=== PATIENT | female | born 1960 | race Caucasian/White ===

== ENCOUNTER 2019-12-26 16:38 | Outpatient (REF) | payer BC, SELFPAY | END 2019-12-26 16:39 | disposition home or self-care (01) | LOC: HO.LAB 16:38 | PROVIDERS: Visit Provider Internal Medicine | DX: Z20.828 Contact with and (suspected) exposure to other viral communicable diseases (principal) | CPT/HCPCS: C9803; U0003 ==

== ENCOUNTER 2020-01-25 12:07 | Outpatient (REF) | payer BC, SELFPAY | END 2020-01-25 12:08 | disposition home or self-care (01) | LOC: HO.LAB 12:07 | PROVIDERS: Visit Provider Internal Medicine | DX: Z20.828 Contact with and (suspected) exposure to other viral communicable diseases (principal) | CPT/HCPCS: C9803; U0003 ==

== ENCOUNTER 2020-08-18 07:37 | Outpatient (REF) | payer BC, SELFPAY ==
[2020-08-18 08:01] LABS: MANUAL DIFF FLAG NO
[2020-08-18 08:04] LABS: Basophils Percent Auto 0.6 % (0-2); Eosinophils Absolute Auto 0.3 X10*3/uL (0.0-0.4); Eosinophils Percent Auto 6.1 % (0-4); Hematocrit 45.2 % (37-47); Hemoglobin 15.2 g/dl (12.0-16.0); Imm Gran Abs Auto 0.01 X10*3/uL (0.00-0.03); Imm Gran Pct Auto 0.2 % (0.0-0.4); Lymphocytes Absolute Auto 2.3 X10*3/uL (1.2-4.9); Mean Corpuscular HGB Conc 33.6 g/dl (31.0-35.0); Mean Platelet Volume 10.6 fL (9.4-12.3); Monocytes Absolute Auto 0.5 X10*3/uL (0.1-1.2); Monocytes Percent Auto 9.4 % (2-11); Neutrophils Absolute Auto 2.3 X10*3/uL (2.0-8.3); Neutrophils Percent Auto 41.7 % (45-73); Platelet Count 257 X10*3/uL (160-400); Red Blood Count 4.61 X10*6/uL (4.20-5.50); Red Cell Distribution Width 11.8 % (11.0-16.0); White Blood Count 5.5 X10*3/uL (4.8-10.8)
[2020-08-18 08:35] LABS: Alanine Aminotransferase 18 U/L (0-31); Albumin Level 4.6 g/dL (3.5-5.0); Alkaline Phosphatase 80 U/L (39-117); Aspartate Amino Transferase 20 U/L (5-31); Bilirubin Total 1.1 mg/dL (0.0-1.0); Blood Urea Nitrogen 14 mg/dL (9-16); Cholesterol 245 mg/dL; Estimated Glomerular Filt Rate > 60; Glucose Fasting 101 mg/dL (60-99); HDL Cholesterol 106 mg/dL; LDL Cholesterol Calculated 128 mg/dl; Total Protein 7.4 g/dL (6.5-8.0); Triglycerides 59 mg/dL
[2020-08-18 08:43] LABS: Anion Gap 14 (12-20); Calcium 10.6 mg/dL (8.4-10.2); Carbon Dioxide 28 mmol/L (22-29); Chloride 105 mmol/L (96-108); Potassium 5.4 mmol/L (3.3-5.1); Sodium 142 mmol/L (135-145)
[2020-08-18 08:53] LABS: Vitamin D 25-OH Total 37.7 ng/mL (>30)
== END 2020-08-18 07:38 | disposition home or self-care (01) ==
LOC: HO.LAB 07:37
PROVIDERS: PCP Internal Medicine; Visit Provider Internal Medicine
DX: Z00.00 Encounter for general adult medical examination without abnormal findings (principal)
CPT/HCPCS: 36415; 80053; 80061; 82306; 85025

== ENCOUNTER 2020-08-21 14:41 | Outpatient (REF) | payer BC, SELFPAY ==
[2020-08-21 15:52] LABS: Anion Gap 17 (12-20); Blood Urea Nitrogen 14 mg/dL (9-16); Calcium 10.4 mg/dL (8.4-10.2); Carbon Dioxide 26 mmol/L (22-29); Chloride 104 mmol/L (96-108); Estimated Glomerular Filt Rate > 60; Glucose Random 101 mg/dL (60-115); Potassium 4.9 mmol/L (3.3-5.1); Sodium 142 mmol/L (135-145)
== END 2020-08-21 14:42 | disposition home or self-care (01) ==
LOC: HO.LAB 14:41
PROVIDERS: PCP Internal Medicine; Visit Provider Internal Medicine
DX: E87.5 Hyperkalemia (principal)
CPT/HCPCS: 36415; 80048

== ENCOUNTER 2021-03-26 09:18 | Outpatient (REF) | payer BC, SELFPAY ==
[2021-03-29 20:02] LABS: HPV mRNA E6/E7 rflx Not Detected (Not Detected)
== END 2021-03-26 09:19 | disposition home or self-care (01) ==
LOC: HO.LAB 09:18
PROVIDERS: PCP Internal Medicine; Visit Provider Obstetrics & Gynecology
DX: Z01.419 Encounter for gynecological examination (general) (routine) without abnormal findings (principal); Z11.51 Encounter for screening for human papillomavirus (HPV)
CPT/HCPCS: 87624; 88142

== ENCOUNTER 2021-06-25 08:17 | Outpatient (REF) | payer BC, SELFPAY ==
--- NOTE | 2021-06-25 13:14 | MHC.AU.ANR ---
Adult Audiological Evaluation Date of Visit: 06/25/21 Reason for Appointment: Audiological evaluation due to concern for decreased hearing. Kanwal reports that her left ear doesn't seem normal . She feels she's been having more trouble hearing from the left ear over the past year, noting that things sound a bit muffled. She notes tinnitus in her left ear as well and notes that sometimes the left ear feels like it's in a wind tunnel. She denies any concerns for her right ear. She notes that she had COVID ~4 weeks ago, had some popping in her ears, and felt that her hearing actually improved during that time, but has since decreased again. Kanwal denies any dizziness or vertigo. Does patient feel they have a hearing loss?: Unsure If Yes, Which Ear?: Left Ear When Was Hearing Difficulty First Noticed?: ~1 year ago Has hearing been tested previously?: No Hearing Handicap Inventory: HHIE SCORE: 0 Based on HHIE score, patient has: No perceived hearing handicap Ear History: Family History of Hearing Loss?: Yes: Mother from a young age, believed to be genetic Bothersome Tinnitus/Ringing/Noises in Ears: Left Ear Blocked/Full Sensation in Ear(s): Left Ear History of occupational noise exposure?: No Medical History: Medical History (Other): 04/1989, Both hips replaced 06/2017 and 12/2017. Allergies: Hydromorphone, trees Medication List: Albuterol sulfate nebulizer PRN, IC Esrtadiol cream, IC Norethindrone, Centrum multivitamin, L-Lysine (vitamin) Otoscopy: Right Ear: Unremarkable Left Ear: Unremarkable Tympanometry: Tympanometry performed due to: To assess integrity of the middle ear system Right Ear: Normal Middle Ear System (Type A) Left Ear: Normal Middle Ear System (Type A) Hearing Evaluation: Transducer(s) Used: Insert Earphones, Bone Conduction Method: Conventional Audiometry Stimuli Used: Pure Tones Right Ear: Description of Hearing: Normal hearing from 250-2000 Hz, sloping to a mild to moderate sensorineural hearing loss from 4084-3379 Hz. Left Ear: Description of Hearing: Moderate sensorineural hearing loss from 250-8000 Hz. Hearing in the left ear is 25-40 dBHL worse than the right ear from 250-2000 Hz. Speech Recognition Threshold (SRT): Method Used: Monitored Live Voice Stimuli Used: Spondee Words Right Ear: 15 dBHL Left Ear: 30 dBHL Word Discrimination: Method: Recorded Lists Word Lists Used: NU-6 Right Ear: 100% at 55 dBHL Left Ear: 100% at 70 dBHL with masking Interpretation of Results: Today's evaluation indicates an asymmetric sensorineural hearing loss, left ear hearing worse than the right. Recommendations: Audiological re-evaluation in one year. Referral to Ear, Nose, and Throat is recommended due to significant asymmetry. If medically cleared by an ENT physician, Kanwal may benefit from hearing aid use in the left ear. Diagnosis: Primary Diagnosis: H90.3 Bilateral Sensorineural Hearing Loss Secondary Diagnosis: H93.12 Tinnitus, Left Ear Services Performed: Services Performed: Comprehensive Audiological Evaluation (CPT 31544) Tympanometry (CPT 04496) Signature: Provider: Myah Hernandez, CCC-A
== END 2021-06-25 08:18 | disposition home or self-care (01) ==
LOC: HO.SH 08:17
PROVIDERS: Visit Provider Internal Medicine
DX: Z01.118 Encounter for examination of ears and hearing with other abnormal findings (principal); H90.3 Sensorineural hearing loss, bilateral
CPT/HCPCS: 92557; 92567

== ENCOUNTER 2021-09-03 06:37 | Outpatient (REF) | payer BC, SELFPAY ==
[2021-09-03 06:44] LABS: MANUAL DIFF FLAG NO
[2021-09-03 07:31] LABS: Basophils Percent Auto 0.5 % (0-2); Eosinophils Absolute Auto 0.3 X10*3/uL (0.0-0.4); Eosinophils Percent Auto 4.9 % (0-4); Hematocrit 43.7 % (37.0-47.0); Hemoglobin 14.5 g/dl (12.0-16.0); Imm Gran Abs Auto 0.01 X10*3/uL (0.00-0.03); Imm Gran Pct Auto 0.2 % (0.0-0.4); Lymphocytes Percent Auto 32.8 % (20-40); Mean Corpuscular HGB Conc 33.2 g/dl (31.0-35.0); Mean Corpuscular Hemoglobin 32.5 pg (27.0-33.0); Mean Platelet Volume 11.1 fL (9.4-12.3); Monocytes Absolute Auto 0.6 X10*3/uL (0.1-1.2); Monocytes Percent Auto 10.1 % (2-11); Neutrophils Absolute Auto 3.1 x10*3/uL (2.0-8.3); Neutrophils Percent Auto 51.5 % (45-73); Platelet Count 255 X10*3/uL (160-400); Red Blood Count 4.46 X10*6/uL (4.20-5.50); Red Cell Distribution Width 11.9 % (11.0-16.0)
[2021-09-03 08:10] LABS: Alanine Aminotransferase 14 U/L (0-31); Albumin Level 4.5 g/dL (3.5-5.0); Alkaline Phosphatase 80 U/L (39-117); Anion Gap 12 (12-20); Aspartate Amino Transferase 18 U/L (5-31); Bilirubin Total 0.6 mg/dL (0.0-1.0); Blood Urea Nitrogen 16 mg/dL (9-16); Calcium 9.8 mg/dL (8.4-10.2); Carbon Dioxide 29 mmol/L (22-29); Chloride 106 mmol/L (96-108); Cholesterol 240 mg/dL; Estimated Glomerular Filt Rate > 60; Glucose Fasting 95 mg/dL (60-99); HDL Cholesterol 102 mg/dL; LDL Cholesterol Calculated 130 mg/dl; Potassium 5.5 mmol/L (3.3-5.1); Sodium 141 mmol/L (135-145); Total Protein 7.1 g/dL (6.5-8.0); Triglycerides 43 mg/dL
== END 2021-09-03 06:38 | disposition home or self-care (01) ==
LOC: HO.LAB 06:37
PROVIDERS: PCP Internal Medicine; Visit Provider Internal Medicine
DX: Z00.00 Encounter for general adult medical examination without abnormal findings (principal)
CPT/HCPCS: 36415; 80053; 80061; 85025

== ENCOUNTER 2021-11-25 07:59 | Outpatient (REF) | payer BC, SELFPAY ==
--- NOTE | ~2021-11-25 | US_ITS ---
EXAMINATION: US VENOUS ULTRASOUND WITH DOPPLER LOWER EXTREMITY, LEFT CLINICAL INFORMATION: Swelling/palpable lump. Rule out phlebitis. COMPARISON: None TECHNIQUE: Ultrasound of the deep veins is performed from the hip to the calf with compression sonography and color and pulse Doppler assessment. Spectral analysis with color-flow imaging is performed. FINDINGS: There is normal venous compression and respiratory variation and augmented flow. The visualized common femoral vein, superficial femoral vein, profunda femoral vein, popliteal vein, and the trifurcation region shows no evidence of deep venous thrombosis. No evidence of superficial thrombophlebitis. There is no popliteal fossa cyst. US/US venous duplex LE LT IMPRESSION: No DVT or superficial thrombophlebitis demonstrated in the left lower extremity.
== END 2021-11-25 08:00 | disposition home or self-care (01) ==
LOC: HO.US 07:59
PROVIDERS: Visit Provider Internal Medicine
DX: R22.9 Localized swelling, mass and lump, unspecified (principal)
CPT/HCPCS: 93971

== ENCOUNTER → 2022-04-01 09:12 | Outpatient (BNVA) | payer BC, SELFPAY | PROVIDERS: PCP Internal Medicine; Visit Provider Obstetrics & Gynecology | DX: Z13.89 Encounter for screening for other disorder (principal) ==

== ENCOUNTER 2023-01-26 08:03 | Outpatient (REF) | payer BC, SELFPAY ==
[2023-01-26 08:20] LABS: MANUAL DIFF FLAG NO
[2023-01-26 09:34] LABS: Basophils Percent Auto 0.8 % (0-2); Eosinophils Absolute Auto 0.3 X10*3/uL (0.0-0.4); Eosinophils Percent Auto 5.3 % (0-4); Hematocrit 43.2 % (37.0-47.0); Imm Gran Abs Auto 0.01 X10*3/uL (0.00-0.03); Imm Gran Pct Auto 0.2 % (0.0-0.4); Lymphocytes Percent Auto 37.9 % (20-40); Mean Corpuscular HGB Conc 32.4 g/dl (31.0-35.0); Mean Corpuscular Hemoglobin 31.3 pg (27.0-33.0); Mean Corpuscular Volume 96.4 fL (80.0-98.0); Mean Platelet Volume 11.2 fL (9.4-12.3); Monocytes Absolute Auto 0.5 X10*3/uL (0.1-1.2); Monocytes Percent Auto 8.6 % (2-11); Neutrophils Absolute Auto 2.5 x10*3/uL (2.0-8.3); Neutrophils Percent Auto 47.2 % (45-73); Platelet Count 324 X10*3/uL (160-400); Red Blood Count 4.48 X10*6/uL (4.20-5.50); Red Cell Distribution Width 11.9 % (11.0-16.0); White Blood Count 5.3 X10*3/uL (4.8-10.8)
[2023-01-26 10:07] LABS: Alanine Aminotransferase 13 U/L (0-31); Alkaline Phosphatase 75 U/L (39-117); Anion Gap 14 (12-20); Aspartate Amino Transferase 17 U/L (5-31); Bilirubin Total 0.4 mg/dL (0.0-1.0); Blood Urea Nitrogen 24 mg/dL (9-16); Carbon Dioxide 27 mmol/L (22-29); Chloride 106 mmol/L (96-108); Cholesterol 219 mg/dL (<200); Estimated Glomerular Filt Rate > 60; Glucose Fasting 96 mg/dL (60-99); HDL Cholesterol 71 mg/dL (>40); LDL Cholesterol Calculated 134 mg/dL (<100); Potassium 5.3 mmol/L (3.3-5.1); Sodium 142 mmol/L (135-145); Total Protein 7.4 g/dL (6.5-8.0); Triglycerides 71 mg/dL (<150)
== END 2023-01-26 08:04 | disposition home or self-care (01) ==
LOC: HO.LAB 08:03
PROVIDERS: PCP Internal Medicine; Visit Provider Internal Medicine
DX: E78.00 Pure hypercholesterolemia, unspecified (principal); D64.9 Anemia, unspecified
CPT/HCPCS: 36415; 80053; 80061; 85025

== ENCOUNTER 2023-04-06 09:30 | Outpatient (AMB) | payer BC, SELFPAY ==
--- NOTE | 2023-04-06 09:32 | A.OFFVIS_ITS ---
Intake Vital Signs 04/06/23 09:37 Height 5 ft 3 in Weight 166 lb BMI 29.4 BP 122/80 Intake Visit Reasons: Annual Intake Note: c/o of vaginal itching Record Systems Analyst Required: No Information Interpreted: non-clinical & clinical Material Crew Supervisor: Material Crew Supervisor Present (Caroline GUTIERREZ) Accompanied by: Self / Same As Patient Allergies hydromorphone [From DILAUDID] Allergy (Unknown, Verified 04/06/23 09:38) HALLUCINATIONS Post menopausal: Yes HPI HPI Comments History of Present Illness Details Presenting for annual exam. No complaints except for vaginal irritation since vaginal estrogen cream x1 week is not giving her enough relief of her vaginal irritation. Last Pap/HPV was in 04/02 was negative Last Mammogram was in 06/01 was BI-RADS 1. Last Colonoscopy was more than 10 years ago, the patient will be contacting Dr. Delgado office to schedule her next screening colonoscopy [facility] Medical History Asthma Surgical History History of History of bilateral hip replacements Family History Mother HTN (hypertension) Social History Household Members: Significant Other Housing: House Alcohol intake: never Patient Tobacco Use Status: Never used Tobacco service: No Current occupational status: retired Sexually active: Yes Sexual orientation: Straight/Heterosexual Gender identity: Female Female Reproductive History Menstrual Age of Menarche: 10 Total pregnancies: 1 Full term: 1 Number of Living Children: 1 Date of last pap smear: 03/28/21 Date of Mammogram: 06/02/22 Review of Systems Const All systems reviewed & are unremarkable except as noted in HPI and below Card Reports as per HPI Resp Reports as per HPI GI Reports as per HPI and Reports no additional complaints Reports as per HPI Physical Exam Vital Signs: BMI result Body Mass Index 29.4 Const General: cooperative, healthy appearing and comfortable Chest Chest palpation & inspection: normal inspection of the chest and normal palpation of entire chest wall Breast/axilla inspection: normal inspection of the breasts and normal inspection of the axillae Breast/axilla palpation: normal palpation of the breasts, normal palpation of the axillae and no axillary lymphadenopathy Resp Effort & Inspection: normal respiratory effort Auscultation: clear to auscultation bilaterally Percussion: percussion normal Cardio Palpation: normal PMI Rate: regular rate Rhythm: regular rhythm Heart sounds: no murmurs and no rubs Peripheral pulses: Peripheral pulses 2+ throughout GI Inspection: Yes normal to inspection Palpation (GI): Soft to palpation, nontender, no guarding, not rigid and No hepatosplenomegaly present Percussion: Yes normal to percussion Auscultation: normal bowel sounds Rectal Exam - Female: deferred General: Yes bladder normal to palpation External Female Exam: No lesion Speculum Exam - Vagina: normal appearance of the vagina, normal palpation, neena l vaginal discharge and not erythematous Speculum Exam - Cervix: normal appearance of the cervix and normal palpation Bimanual exam- vagina & uterus: normal bimanual exam, normal palpation, uterine size normal, bladder normal to palpation, consistency normal and normal palpation Bimanual Exam- Adnexa, other: normal adnexae, no masses and no tenderness Assessment & Plan Assessment & Plan (1) Well woman exam: Code(s): Z01.419 - Encounter for gynecological examination (general) (routine) without abnormal findings Plan: Co testing not indicated this year. Counseled the patient about the recommended dietary allowance of 1200 mg of Calcium & 600 IU of vitamin D. Instructions given the patient to schedule her next screening Mammogram in 06/02. The patient is in the process of scheduling with her GI her next screening colonoscopy . The patient was instructed to perform monthly self-breast exams and schedule annual exam in a year. All questions answered and the patient verbalized understanding. (2) Atrophic vaginitis: Code(s): N95.2 - Postmenopausal atrophic vaginitis Plan: Will increase the dose of estrogen vaginal cream to 3 times a week. Medications: Changed From estradiol 0.01%(0.1mg/gram) 0.25 appful vaginal QWEEK 42.5 grams 3RF To estradiol 0.01%(0.1mg/gram) Vaginal cream 3 times a week maintenance therapy 0.25 appful vaginal 3XW 42.5 grams 3RF Coding Level of Care Code Est Pt Prev Care 40-64y(79835) Diagnoses Well woman exam Z01.419 Atrophic vaginitis N95.2
[2023-04-06 09:37] VITALS: BP 122/80; BMI 29.4
== END 2023-04-06 10:03 | disposition home or self-care (01) ==
LOC: HO.HWS 09:31
PROVIDERS: PCP Internal Medicine; Visit Provider Obstetrics & Gynecology
DX: Z01.419 Encounter for gynecological examination (general) (routine) without abnormal findings (principal); N95.2 Postmenopausal atrophic vaginitis
CPT/HCPCS: 99396

== ENCOUNTER → 2023-04-06 09:30 | Outpatient (BNVA) | payer BC, SELFPAY | PROVIDERS: PCP Internal Medicine; Visit Provider Obstetrics & Gynecology ==

== ENCOUNTER 2023-10-13 15:03 | Outpatient (REF) | payer MEDICARE, SELFPAY | END 2023-10-13 15:04 | disposition home or self-care (01) | LOC: HO.SH 15:03 | PROVIDERS: Visit Provider Internal Medicine | DX: Z01.118 Encounter for examination of ears and hearing with other abnormal findings (principal); H90.6 Mixed conductive and sensorineural hearing loss, bilateral | CPT/HCPCS: 92557; 92567 ==

== ENCOUNTER 2023-11-09 15:10 | Outpatient (REF) | payer SELFPAY ==
--- NOTE | 2023-11-10 09:42 | MHC.AU.HA1 ---
Hearing Aid Evaluation Date of Visit: 11/09/23 Historical Information: Description of Hearing: Severe to moderate mixed hearing loss Ad, moderate to severe mixed hearing loss As. Current personal amplification information, if applicable: None. Summary: Here for hearing aid consultation. Kanwal reports seeing ENT following recent evaluation here, cleared for amplification by Dr. Menchaca but she will be seeing someone else to discuss treatment options for the conductive component of her hearing loss. Ready to proceed with amplification at this time. Reviewed options- styles, technology levels, costs. Selected rechargeable RITE with custom mold. Kanwal currently uses an iphone but may get an Android, she may want to connect to her phone for streaming calls. Impressions taken without incidence Au. Hearing Aid Prescription: Based on the individual?s shared listening needs, communication environments, dexterity, desire for connectivity, and personal preferences, the following prescription for amplification has been made: Right ear: Make, Model, Color: Phonak Audeo I 70 R, silver boyle Battery Size: Rechargeable Cardiac Cath Lab Manager/Slim Tube: 1M Type of Earmold/Dome/CShell/SlimTip: silicone skeleton Left ear: Make, Model, Color: Phonak Audeo I 70 R, silvery boyle Battery Size: Rechargeable Cardiac Cath Lab Manager/Slim Tube: 1 M Type of Earmold/Dome/CShell/SlimTip: silicone skeleton Plan of Care: Patient wishes to purchase hearing aids as prescribed Action Taken/Action Needed: Earmold Impressions Taken Hearing Instrument Fitting to be scheduled when materials arrive Primary Diagnosis: H90.6 Mixed Hearing Loss, Bilateral Signature: Provider: Lion Aguilar, [facility]
== END 2023-11-09 15:11 | disposition home or self-care (01) ==
LOC: HO.HAP 15:10
PROVIDERS: Visit Provider Internal Medicine
DX: Z46.1 Encounter for fitting and adjustment of hearing aid (principal); H90.6 Mixed conductive and sensorineural hearing loss, bilateral
CPT/HCPCS: 92590

== ENCOUNTER 2023-12-04 09:24 | Outpatient (REF) | payer SELFPAY ==
--- NOTE | 2023-12-04 11:07 | MHC.AU.HA2 ---
Hearing Instrument Fitting- Adult- Binaural Date of Visit: 12/04/23 Summary of Fitting: Here for fitting. Size 1 wire was too short for left ear. No size 2 in stock. Attempted to remove wire from left aid and it snapped, jewelry finisher connector stuck in aid. To save time, returning these aids and placing order for new aids. Earmolds are stored in earmold drawer. Kanwal is anxious to get her hearing aids before going on vacation next week. Recommendations: Recommendations (Other): Return as scheduled for hearing aid fitting. Diagnosis Code(s): Primary Diagnosis: H90.6 Mixed Hearing Loss, Bilateral Secondary Diagnosis: H93.12 Tinnitus, Left Ear Signature: Provider: Lion Aguilar, CCC-A
== END 2023-12-04 09:25 | disposition home or self-care (01) ==
LOC: HO.HAP 09:24
PROVIDERS: Visit Provider Internal Medicine
DX: Z13.89 Encounter for screening for other disorder (principal)

== ENCOUNTER 2023-12-09 12:59 | Outpatient (REF) | payer SELFPAY ==
--- NOTE | 2023-12-09 16:23 | MHC.AU.HA2 ---
Hearing Instrument Fitting- Adult- Binaural Date of Visit: 12/09/23 Hearing Instruments Dispensed: Right Ear: Make, Model, Color, Serial Number: Phonak Audeo I 70 R, bayron boyle S#[id number] Patient Safety Attendant Repair Warranty: 01/01/2027 Patient Safety Attendant Loss and Damage Warranty: 01/01/[address] [facility] Service Plan: n/a Battery Size: Rechargeable Crew Leader/Slim Tube: 1M Earmold/Dome/CShell/SlimTip: silicone skeleton [id number] Warranty 03/21/2024 Type of Wax Guard: Cerustop Left Ear: Make, Model, Color, Serial Number: Phonak Audeo I 70 R, jimi boyle S#[id number] Patient Safety Attendant Repair Warranty: 01/01/2027 Patient Safety Attendant Loss and Damage Warranty: 01/01/[address] [facility] Service Plan: n/a Battery Size: Rechargeable Crew Leader/Slim Tube: 2 M Earmold/Dome/CShell/SlimTip: silicone skeleton [id number] Warranty 03/21/2024 Type of Wax Guard: Cerustop Accessories/Assistive Technology: Phonak [employer] Guidance Counselor HALLIE S#[id number] Summary of Fitting: Fit with and oriented to binaural Phonak Audeo I70 R HAs with silicone skeleton slim tips. Verified to DSL Adult 5 targets. Kanwal felt that they were overall too loud, set adaptation to 70% with gradual increase. VC enabled, reviewed use. Counseled on adjustment to amplification. Reviewed charging. Reviewed maintenance and precautions. Did not review wax guard change as receivers are recessed in molds and wax guards not accessible- demonstrated using tool to remove wax from mold. Paired with iPhone. Recommendations: Recommendations: Hearing instrument care and maintenance were discussed and practiced. A hearing instrument follow-up was scheduled. Diagnosis Code(s): Primary Diagnosis: H90.6 Mixed Hearing Loss, Bilateral Signature: Provider: Lion Aguilar, [facility]
== END 2023-12-09 13:00 | disposition home or self-care (01) ==
LOC: HO.HAP 12:59
PROVIDERS: PCP Internal Medicine; Visit Provider Otolaryngology
DX: Z46.1 Encounter for fitting and adjustment of hearing aid (principal); H90.6 Mixed conductive and sensorineural hearing loss, bilateral
CPT/HCPCS: 92700; V5261; V5264; V5299

== ENCOUNTER 2023-12-30 15:43 | Outpatient (REF) | payer SELFPAY ==
--- NOTE | 2023-12-30 16:54 | MHC.AU.HA3 ---
Hearing Instrument Follow-Up- Binaural Date of Visit: 12/30/23 Right Ear: Gilbert, , Color, Serial Number: Monserrat Soria I 70 R, bayron boyle S#[id number] Herbicide Service Sales Representative Repair Warranty: 01/01/2027 Herbicide Service Sales Representative Loss and Damage Warranty: 01/01/2027 [facility] Service Plan: n/a Battery Size: Rechargeable Video Game Repair Technician/Slim Tube: 1M Earmold/Dome/CShell/SlimTip:silicone skeleton [id number] Warranty 03/21/2024 Type of Wax Guard: Cerustop Dispensed By: [facility] Date of Fittin12/09/2023 Left Ear: Model Gilbert, Color, Serial Number: Monserrat Cortez Rjimi S#[id number] Herbicide Service Sales Representative Repair Warranty: 01/01/2027 Herbicide Service Sales Representative Loss and Damage Warranty: 01/01/2027 [facility] Service Plan: n/a Battery Size: Rechargeable Video Game Repair Technician/Slim Tube: 2 M Earmold/Dome/CShell/SlimTip: silicone skeleton [id number] Warranty 03/21/2024 Type of Wax Guard: Cerustop Dispensed By: [facility] Date of Fittin12/09/2023 Follow-Up Summary: Here for follow up. Reports that she has been having a lot of problems with her phone. Sound coming through way too loud, strange volume changes. Also notes in general everything is echoing, loud, reverberant. Also reports earmolds have been very uncomfortable. Reports she had oozing sores. Reports no longer oozing. Reports the right feels less bothersome, the left is still uncomfortable. Otoscopy reveals red mahesh across bella and two very small, pinhead, dry scabs in helix As. Otoscopy clear Ad, Kanwal pointed out similar bella and helix areas as those which were bothersome. Took impressions for remake earmolds without incidence. Marked current earmolds and took photos to send to [employer] so that Kanwal can continue wearing them while waiting for remakes. She indicated that she didn't want to potentially be without them over the holidays despite them having been bothersome. Advised to give her ears breaks from the earmolds if they are uncomfortable. Disconnected hearing aids from phone. Gave [facility] support number as they may better address what is going on with her phone sounds. Decreased gain back to 70% re: complaints about loudness to help facilitate adjustment to amplification. Recommendations: Recommendations: Patient will be contacted when materials have arrived. Diagnosis Code(s): Primary Diagnosis: H90.6 Mixed Hearing Loss, Bilateral Secondary Diagnosis: H93.12 Tinnitus, Left Ear Signature: Provider: Lion Aguilar, CCC-A
== END 2023-12-30 15:44 | disposition home or self-care (01) ==
LOC: HO.HAP 15:43
PROVIDERS: Visit Provider Internal Medicine
DX: Z13.89 Encounter for screening for other disorder (principal)

== ENCOUNTER 2024-01-29 09:57 | Outpatient (REF) | payer SELFPAY ==
--- OUTSIDE RECORDS SUMMARY | 2024-01-29 10:00 | XMS_ITS | Continuity of Care Document ---
Author Organization [place] - [facility], [facility] Address [address] [place] [id number] Care Team Providers Care Blocker And Polisher Name Role Phone REMI SEGAL Primary Care Provider [phone] Assessment No assessment recorded. Plan of Treatment Reminders Order Date Submit Date Provider Last Modified By Organization Details Last Modified Time Details Appointments None record ed. Lab None record ed. Referral None record ed. Procedures None record ed. Surgeries None record ed. Imaging None record ed. Medication Orders None record ed. Patient TargetsNo targets recorded. Patient InstructionsNo instructions recorded. Reason for Referral None Reported. Results Created Date Observation Date Name Description Value Unit Range Abnormal Flag Note LastModifiedBy Organization Detail LastModifiedTime 01/25/20 24 audio gram No observ ation record ed. [email or web address] Not Available 2023 09:56:27 Result Notes None recorded. Problems Name Problem SNOMED Code Status Onset Date Resolution Date Notes Provider Name and Address Organization Details Recorded Time Sensorine ural hearing loss of bilateral ears 578880073 Active 2021 Sensorineu ral hearing loss, bilateral; Note: Date Diagnosed: 11/01/2021 9:20 AM (H90.3) Not Available [facility] 4 02:36:19 Mixed conductiv e and sensorine ural hearing loss, bilateral 778422837 Active 2023 SOLITARIO MENCHACA MD [address] [place] [address], [facility] [place], [phone] , [facility] - [facility] 4 13:40:48 Problem Notes None recorded. Procedures Surgical History Date Name Laterality Status Provider Name and Address Organization Details Recorded Time 01/25/2024 Comp Audio with Tymps (32645 & 60154) completed HARRY JOYNER, [facility] [address],[place] [address], [place], [phone], [place] - [facility] 01/25/2024 12:00:11 Imaging Results None recorded. Procedure Notes None recorded. Medical Equipment None Reported. Allergies No known drug allergies Medications Name Sig Start Date Stop Date Status Note LastModified by Organization Details LastModified Time cyclobenz aprine 10 mg tablet TAKE ONE TABLET BY MOUTH TWICE A DAY NEEDED. 11/01 completed Not Available Not Available Not Available albuterol sulfate 2.5 mg/3 mL (0.083 %) solution for nebulizat ion USE 1 VIAL VIA NEBULIZE R 3 TIMES A DAY. active Not Available Not Available No t Available estradiol 0.01% (0.1 mg/gram) vaginal cream USE 1/4 APPLICAT ORFUL VAGINALL Y EVERY 7 DAYS 01/24 completed Not Available Not Available Not Available albuterol sulfate HFA 90 mcg/actua tion aerosol inhaler INHALE TWO PUFFS BY MOUTH FOUR TIMES A DAY NEEDED active Not Available Not Available No t Available norethind nelson (contrace ptive) 0.35 mg tablet 01/24 completed Medicati on ID: [id number] B rand Name: norethin drone (contrac eptive) Send Method: E-Prescr ibed Sub s Allowed: subs OK Medic ationGen ericName : norethin drone (contrac eptive) Not Available Not Available Not Available Vitals Date Recorded Body height Body mass index (BMI) Body weight Provider Name and Address Organization Details Last Updated DateTime 01/25/2024 160.02 cm 31 kg/m2 77387.66 g Osiris Lambert [facility] 01/25/2024 11:18:48 Social History None recorded. Functional Status None recorded. Mental Status None recorded. Family History Nothing Reported. Medical History No medical history recorded. Gynecological HistoryNo gynecological history recorded. Obstetrics History GPAL:G 0 P 0 0 0 0 Past Encounters Encounter ID Performer Location Encounter Start Date Encounter Closed Date Diagnosis/Indication Diagnosis SNOMED-CT Code Diagnosis ICD10 Code [id number] ISHMAEL ZAMAN MD [facility] [address] [place] [address] 01/25/2024 11:07:08 01/25/2024 12:32:28 Sensorineural hearing loss of bilateral ears 595667925 H90.3 Family his tory of hearing loss 176836276 Z82.2 [id number] HÉCTOR SCOTT [facility] [place] [address] [facility] [place] [address] 01/25/2024 11:59:19 01/26/2024 07:44:56 Mixed conductive and sensorineural hearing loss, bilateral 308039775 H90.6 Sensorineu ral hearing loss of bilateral ears 685600975 H90.3 Health Concerns Section Related Observation LastModified by Organization Detai ls LastModified Time None Recorded Concern Status LastModified by Organization Details LastModified Time None Recorded Payers Encounter Date Sequence Insurance Name Policy Number Policy Gutierrez Covered Member ID Gutierrez Member ID Guarantor Name 01/25/2024 1 [place] [employer] Kanwal Jimenez [id number] Kanwal Jimenez 01/25/2024 2 [place] [id number] Kanwal Jimenez [id number] Kanwal Jimenez Notes Date Note Type Note Provider Name and Address Organization Details Recorded Time 01/25/2024 text/html Patient who saw Dr. Menchaca back in 2021. She had an asymmetric sensorineural hearing loss affecting the left ear greater than right. Dr. Menchaca recommended MRI scan of the brain and internal auditory canals. Patient refused MRI scan because she she did not want contrast, and was subsequently lost to follow-up. Patient presented back to Dr. Menchaca in October 2023 with updated audiometric testing from [facility] showing a significant change in the right sensorineural thresholds, with significant worsening in speech discrimination. Patient reports maternal family history of childhood onset hearing loss, her mother had surgery on her ear but it did not help. Patient's brother has hearing loss as well which started in his 50s.Patient reports that she has since obtained binaural amplification from [facility] audiology. Overall she seems to be doing well with them, though she feels that on some days her general hearing is not as good as other days. She does not notice a unilateral fluctuation in hearing, only a general sense that her hearing has good days and bad days. No dizziness or balance disturbance at all. ISHMAEL ZAMAN MD [address] [place] [address], [place], [address], [facility] - [facility] 01/25/2024 12:36:25 OBGyn Episode No OBEpisode recorded.
--- OUTSIDE RECORDS SUMMARY | 2024-01-29 10:00 | XMS_ITS | Data Portability ---
Author Organization [place] - [facility], Allergy Address [address] [address] Care Team Providers Care Interactive Media Marketing Director Name Role Phone REMI SEGAL Primary Care Provider Assessment Encounter Date Assessment Date Assessment LastModified by Organization Details LastModified Time 11/02/2023 11/02/2023 Significant recio ge in hearing since previous testing in 2021. I would like her to have consultation with my colleague Dr. Zaman given the mixed quality of hearing change. Alternative management option of pursuing amplification bilaterally was also discussed. Patient would like to pursue both options. She will be visiting [place] next month with her son and grandchild and I have no contraindications for her air travel dplosky Not available 11/02/2023 13:49:55 Plan of Treatment Reminders Order Date Submit Date Provider Last Modified By Organization Details Last Modified Time Details Appointments None recorded. Lab CBC w/ auto diff 2023 CANDI [facility], [address], [address], 4 12:08:59 serology, syphilis 2023 024 CANDI [facility], 100 [facility], [address], [address], 4 12:08:58 TSH, serum or plasma 2023 024 CANDI [facility], 100 [facility], [facility] [address], [place], [address], 4 12:08:58 IVELISSE + rf (antinuclea r antibodies + rheumatoid factor), quantitativ e, serum 2023 CANDI [facility], [address], [place] [facility], [place], [address], 4 12:08:59 C-reactive protein, quantitativ e, serum or plasma 2023 024 CANDI [facility], [address], [address], [place], [address], 4 12:08:58 ESR (erythrocyt e sedimentati on rate), blood 2023 024 C[facility]I [facility], [address], [address], [place], [address], 4 12:08:57 HbA1c (hemoglobin A1c), blood 2023 024 C[facility]I [facility], [address], [address], [place], [address], 4 12:21:57 Referral None recorded. Procedures None recorded. Surgeries None recorded. Imaging MRI, brain + internal auditory canal, w/wo contrast - MRI, BRAIN + INTERNAL AUDITORY CANAL, W/WO CONTRAST [address] [facility] [address] [place], [address], 4 12:32:28 Medication Orders None recorded. Patient TargetsNo targets recorded. Patient InstructionsNo instructions [...] Sensorine ural hearing loss of bilateral ears [id number] Active 2021 Sensorineu ral hearing loss, bilateral; Note: Date Diagnosed: 11/01/2021 9:20 AM (H90.3) Not Available [facility] 02:36:19 Mixed conductiv e and sensorine ural hearing loss, bilateral 074685164 Active 2023 SOLITARIO JOHNSON MD 100 [facility],[place] [address], [place], [address] , [facility] 13:40:48 Problem Notes None recorded. Procedures Surgical History Date Name Laterality Status Provider Name and Address Organization Details Recorded Time 01/25/2024 Comp Audio with Tymps (93418 & 61471) completed HÉCTOR SCOTT 100 [facility],[place] [address], [place], [address], [facility] 01/25/2024 12:00:11 Imaging Results Imaging Date Name Status LastModified by Organiz ation Details LastModified Time 01/25/2024 audiogram completed [email or web address] Information no t available 01/26/2024 09:56:27 Procedure Notes None recorded. Medical Equipment None [...] mg tablet 01/24 completed Medicati on ID: [id number] B rand Name: norethin drone (contrac eptive) Send Method: E-Prescr ibed Sub s Allowed: subs OK Medic ationGen ericName : norethin drone (contrac eptive) Not Available Not Available Not Available Vitals Date Recorded Body height Body mass index (BMI) Body weight Provider Name and Address Organization Details Last Updated DateTime 11/02/2023 160.02 cm 31.9 kg/m2 42131.63 g Kaylin Levy [place] - [facility] 11/02/2023 13:27:43 Date Recorded Body height Body mass index (BMI) Body weight Provider Name and Address Organization Details Last Updated DateTime 01/25/2024 160.02 cm 31 kg/m2 00106.66 g Osiris Baltazar [place] - [facility] 01/25/2024 11:18:48 Social History None recorded. Functional Status None recorded. Mental Status None recorded. Family History Nothing Reported. Medical History No medical history recorded. Gynecological HistoryNo gynecological history recorded. Obstetrics History GPAL:G 0 P 0 0 0 0 Past Encounters Encounter ID Performer Location Encounter Start Date Encounter Closed Date Diagnosis/Indication Diagnosis SNOMED-CT Code Diagnosis ICD10 Code [id number] SOLITARIO JOHNSON MD [facility] [address] [address] 11/02/2023 13:02:04 11/02/2023 13:55:29 Mixed conductive and sensorineural hearing loss, bilateral 998502870 H90.6 [id number] ISHMAEL ZAMAN MD [facility] [address] [address] 01/25/2024 11:07:08 01/25/2024 12:32:28 Sensorineural hearing loss of bilateral ears 948078186 H90.3 Family his tory of hearing loss 320000689 Z82.2 [id number] HÉCTOR SCOTT [facility] [address] [address] 01/25/2024 11:59:19 01/26/2024 07:44:56 Mixed conductive and sensorineural hearing loss, bilateral 367480509 H90.6 Sensorineu ral hearing loss of bilateral ears 795676546 H90.3 Health Concerns Section Related Observation LastModified by Organization Detai ls LastModified Time None Recorded Concern Status LastModified by Organization Details LastModified Time None Recorded Advance Directives Directive None Recorded Payers Encounter Date Sequence Insurance Name Policy Number Policy Gutierrez Covered Member ID Gutierrez Member ID Guarantor Name 11/02/2023 1 [place] Kanwal Keysty [id number] 3 Kanwalteo Betancourt Doherty 11/02/2023 2 [place] [id number] Kanwal Betancourt Doherty [id number] Kanwal M Jimenez 01/25/2024 1 [place] Kanwal Asia HelmJimenez [id number] 3 Kanwal M Jimenez 01/25/2024 2 [place] [id number] Kanwal Betancourt Jimenez [id number] Kanwal M Jimenez 01/25/2024 1 [place] Kanwal Asia Jimenez [id number] 3 Kanwal M Jimenez 01/25/2024 2 [place] [id number] Kanwal Betancourt Doherty [id number] Kanwal M Jimenez Notes Date Note Type Note Provider Name and Address Organization Details Recorded Time 11/02/2023 text/html hearing loss10/13/2023 audio at [facility] right 64% left 92%Severe to moderate mixed hearing loss on the right, moderate mixed hearing loss on the left. Thresholds down significantly on the right compared with previous in 2021. Stable on the left. family hx of hearing loss, mother had a surgery on ear but it did not help SOLITARIO JOHNSON MD [address] [place] [address], [address], [facility] - [facility] 11/02/2023 13:50:11 01/25/2024 text/html Patient who saw Dr. Johnson back in 2021. She had an asymmetric sensorineural hearing loss affecting the left ear greater than right. Dr. Johnson recommended MRI scan of the brain and internal auditory canals. Patient refused MRI scan because she she did not want contrast, and was subsequently lost to follow-up. Patient presented back to Dr. Johnson in October 2023 with updated audiometric testing from [facility] audiology showing a significant change in the right sensorineural thresholds, with significant worsening in speech discrimination. Patient reports maternal family history of childhood onset hearing loss, her mother had surgery on her ear but it did not help. Patient's brother has hearing loss as well which started in his 50s.Patient reports that she has since obtained binaural amplification from [facility] audiology. Overall she seems to be doing well with them, though she feels that on some days her general hearing is not as good as other days. She does not notice a unilateral fluctuation in hearing, only a general sense that her hearing has good days and bad days. No dizziness or balance disturbance at all. ISHMAEL ZAMAN MD [address] [place] [address], [place], [address], [facility] - [facility] 01/25/2024 12:36:25 OBGyn Episode No OBEpisode recorded.
--- NOTE | 2024-01-29 13:23 | MHC.AU.HA3 ---
Hearing Instrument Follow-Up- Binaural Date of Visit: 01/29/24 Right Ear: Model Gilbert, Color, Serial Number: Monserrat Cortez Rbayron S#[id number] [employer] Repair Warranty: 01/01/2027 [employer] Loss and Damage Warranty: 01/01/2027 [facility] Service Plan: n/a Battery Size: Rechargeable Steel Division Supervisor/Slim Tube: 1M Earmold/Dome/CShell/SlimTip:silicone skeleton S#[id number] Warranty 05/04/2024 Type of Wax Guard: Cerustop Dispensed By: [facility] Date of Fittin12/09/2023 Left Ear: Model Gilbert, Color, Serial Number: Monserrat Cortez Rjimi S#[id number] [employer] Repair Warranty: 01/01/2027 [employer] Loss and Damage Warranty: 01/01/2027 [facility] Service Plan: n/a Battery Size: Rechargeable Steel Division Supervisor/Slim Tube: 2 M Earmold/Dome/CShell/SlimTip: silicone skeleton S#[id number] Warranty 05/04/2024 Type of Wax Guard: Cerustop Dispensed By: [facility] Date of Fittin12/09/2023 Follow-Up Summary: 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 She reports that she has been wearing the hearing aids consistently despite feeling of earmolds putting some pressure on her ears. She reports a mediocre response to amplification. Not really getting what she hoped from the hearing aids. Bothered by some sounds. She notes bothersome feeling of reverberation in the right ear to low sounds from music. Reports that she does have an easier time for conversations with the hearing aids. Kanwal reports seeing ENT for which we did receive notes but no audiogram. She has a copy of the audiogram which she will forward to us. She reports their test indicated that her hearing has gotten worse since being tested in Oct and recommended MRI as well as testing for autoimmune disorders. Swapped earmolds. Fit looks good. Gave Kanwal the other molds to hold on to. Ran feedback, no issues. Decreased gain slightly for lowest pitches Ad. Increased gain slightly As as Kanwal had mention the left felt a bit muffled. Feeling of balanced hearing reported. Set VC to adjust aids independently due to Kanwal's asymmetric and possibly fluctuating hearing loss. Reviewed VC use. Appt. scheduled to check on earmold fit, make adjustments if needed in review of newest audiogram. Recommendations: Recommendations: An additional follow-up was scheduled to monitor progress. Diagnosis Code(s): Primary Diagnosis: H90.6 Mixed Hearing Loss, Bilateral Secondary Diagnosis: H93.12 Tinnitus, Left Ear Signature: Provider: Lion Aguilar, CCC-A
== END 2024-01-29 09:58 | disposition home or self-care (01) ==
LOC: HO.HAP 09:57
PROVIDERS: Visit Provider Internal Medicine
DX: Z13.89 Encounter for screening for other disorder (principal)

== ENCOUNTER 2024-02-08 07:54 | Outpatient (REF) | payer SELFPAY ==
--- OUTSIDE RECORDS SUMMARY | 2024-02-08 07:56 | XMS_ITS | Data Portability ---
Author Organization [place] - [facility], Allergy Address [address] [address] Care Team Providers Care Vascular Ultrasound Technician Name Role Phone REMI SEGAL Primary Care [...] pursue both options. She will be visiting [place] next month with her son and grandchild and I have no contraindications for her air travel dplosky Not available 11/02/2023 13:49:55 Plan of Treatment Reminders Order Date Submit Date Provider Last Modified By Organization Details Last Modified Time Details Appointments None recorded. Lab CBC w/ auto diff 2023 024 C[facility]I [facility], [address], [address], 4 19:51:40 serology, syphilis 2023 024 [email or web address] 2 [facility], 100 [facility], [address], [address], 4 12:05:00 TSH, serum or plasma 2023 024 CANDI [facility], 100 [facility], [facility] [address], [place], [address], 4 19:51:42 IVELISSE + rf (antinuclea r antibodies + rheumatoid factor), quantitativ e, serum 2023 024 CANDI [facility], [address], [address], [place], [address], 4 19:51:41 C-reactive protein, quantitativ e, serum or plasma 2023 024 [email or web address] 2 [facility], [address], [address], [place], [address], 4 12:05:00 ESR (erythrocyt e sedimentati on rate), blood 2023 024 CANDI [facility], [address], [address], [place], [address], 4 19:51:43 HbA1c (hemoglobin A1c), blood 2023 024 CANDI [facility], [address], [address], [place], [address], 4 19:51:41 Referral None recorded. Procedures None recorded. Surgeries None recorded. Imaging MRI, brain + internal auditory canal, w/wo contrast - MRI, BRAIN + INTERNAL AUDITORY CANAL, W/WO CONTRAST [address] [facility] ([facility]), [address] [place], [address], 12:32:28 Medication Orders None recorded. Patient TargetsNo [...] Sensorine ural hearing loss of bilateral ears [id number] Active 2021 Sensorineu ral hearing loss, bilateral; Note: Date Diagnosed: 11/01/2021 9:20 AM (H90.3) Not Available [facility] 02:36:19 Mixed conductiv e and sensorine ural hearing loss, bilateral 895675298 Active 2023 SOLITARIO JOHNSON MD 100 [facility],[place] [address], [place], [address] , [facility] 13:40:48 Problem Notes None recorded. Procedures Surgical History Date Name Laterality Status Provider Name and Address Organization Details Recorded Time 01/25/2024 Comp Audio with Tymps (60846 & 95876) completed HÉCTOR SCOTT 100 [facility],[place] [address], [place], [address], [facility] 01/25/2024 12:00:11 Imaging Results Imaging Date [...] mg tablet 01/24 completed Medicati on ID: [id number] B rand Name: norethin drone (contrac eptive) Send Method: E-Prescr ibed Sub s Allowed: subs OK Medic ationGen ericName : kranthi anderson (contrac eptive) Not Available Not Available Not Available Vitals Date Recorded Body height Body mass index (BMI) Body weight Provider Name and Address Organization Details Last Updated DateTime 11/02/2023 160.02 cm 31.9 kg/m2 43433.63 g Kaylin Levy [place] - [facility] 11/02/2023 13:27:43 Date Recorded Body height Body mass index (BMI) Body weight Provider Name and Address Organization Details Last Updated DateTime 01/25/2024 160.02 cm 31 kg/m2 60563.66 g Osiris Baltazar [place] - [facility] 01/25/2024 11:18:48 Social History None recorded. Functional Status None recorded. Mental Status None recorded. Family History Nothing Reported. Medical History No medical history recorded. Gynecological HistoryNo gynecological history recorded. Obstetrics History GPAL:G 0 P 0 0 0 0 Past Encounters Encounter ID Performer Location Encounter Start Date Encounter Closed Date Diagnosis/Indication Diagnosis SNOMED-CT Code Diagnosis ICD10 Code [id number] SOLITARIO JOHNSON MD [facility] [address] [address] 11/02/2023 13:02:04 11/02/2023 13:55:29 Mixed conductive and sensorineural hearing loss, bilateral 268353212 H90.6 [id number] ISHMAEL ZAMAN MD [facility] [address] [address] 01/25/2024 11:07:08 01/25/2024 12:32:28 Sensorineural hearing loss of bilateral ears 312622787 H90.3 Family his tory of hearing loss 992147836 Z82.2 [id number] HÉCTOR SCOTT [facility] [address] [address] 01/25/2024 11:59:19 01/26/2024 07:44:56 Mixed conductive and sensorineural hearing loss, bilateral 282228821 H90.6 Sensorineu ral hearing loss of bilateral ears 810518733 H90.3 Health Concerns Section Related Observation LastModified by Organization Detai ls LastModified Time None Recorded Concern Status LastModified by Organization Details LastModified Time None Recorded Advance Directives Directive None Recorded Payers Encounter Date Sequence Insurance Name Policy Number Policy Gutierrez Covered Member ID Gutierrez Member ID Guarantor Name 11/02/2023 1 [place] Kanwal Keysty [id number] 3 Kanwal M Jimenez 11/02/2023 2 [place] [id number] Kanwal Betancourt Doherty [id number] Kanwal Asia Jimenez 01/25/2024 1 [place] Kanwal Asia Jimenez [id number] 3 Kanwal M Jimenez 01/25/2024 2 [place] [id number] Kanwal Betancourt Jimenez [id number] Kanwal M Jimenez 01/25/2024 1 [place] Kanwal Betancourt Jimenez [id number] 3 Kanwal M Jimenez 01/25/2024 2 [place] [id number] Kanwal Betancourt Doherty [id number] 09 Kanwal M Jimenez Notes Date Note Type Note Provider Name and Address Organization Details Recorded Time 11/02/2023 text/html hearing loss10/13/2023 audio at [facility] right 64% left 92%Severe to moderate mixed hearing loss on the right, moderate mixed hearing loss on the left. Thresholds down significantly on the right compared with previous in 2021. Stable on the left. family hx of hearing loss, mother had a surgery on ear but it did not help SOLITAROI JOHNSON MD [address] [place] [address], [address], [facility] - [facility] 11/02/2023 13:50:11 01/25/2024 text/html Patient who [...] October 2023 with updated audiometric testing from [facility] audiology showing a significant change in the right sensorineural thresholds, with significant worsening in speech discrimination. Patient reports maternal family history of childhood onset hearing loss, her mother had surgery on her ear but it did not help. Patient's brother has hearing loss as well which started in his 50s.Patient reports that she has since obtained binaural amplification from [facility] audiology. Overall she seems to be doing well with them, though she feels that on some days her general hearing is not as good as other days. She does not notice a unilateral fluctuation in hearing, only a general sense that her hearing has good days and bad days. No dizziness or balance disturbance at all. ISHMAEL ZAMAN MD [address] [place] [address], [address], [facility] - [facility] 01/25/2024 12:36:25 OBGyn Episode No OBEpisode recorded.
--- OUTSIDE RECORDS SUMMARY | 2024-02-08 07:56 | XMS_ITS | Continuity of Care Document ---
Author Organization [place] - [facility], [facility] Address [address] [place] [address] Care Team Providers Care Strawhat Sizer Name Role Phone REMI SEGAL Primary Care Provider Assessment No assessment recorded. Plan of Treatment [...] Sensorine ural hearing loss of bilateral ears [id number] Active 2021 Sensorineu ral hearing loss, bilateral; Note: Date Diagnosed: 11/01/2021 9:20 AM (H90.3) Not Available [facility] 4 02:36:19 Mixed conductiv e and sensorine ural hearing loss, bilateral 275145224 Active 2023 SOLITARIO MENCHACA MD [address] [place] [address], [facility] [place], [address] , [facility] - [facility] 4 13:40:48 Problem Notes None recorded. Procedures Surgical History Date Name Laterality Status Provider Name and Address Organization Details Recorded Time 01/25/2024 Comp Audio with Tymps (53610 & 97777) completed HARRY JOYNER, [facility] 100 [facility],[place] [address], [place], [address], [place] - [facility] 01/25/2024 12:00:11 Imaging Results None recorded. [...] mg tablet 01/24 completed Medicati on ID: [id number] B rand Name: norethin drone (contrac eptive) Send Method: E-Prescr ibed Sub s Allowed: subs OK Medic ationGen ericName : norethin drone (contrac eptive) Not Available Not Available Not Available Vitals Date Recorded Body height Body mass index (BMI) Body weight Provider Name and Address Organization Details Last Updated DateTime 01/25/2024 160.02 cm 31 kg/m2 70613.66 g Osiris Lambert [facility] 01/25/2024 11:18:48 Social History None recorded. Functional Status None recorded. Mental Status None recorded. Family History Nothing Reported. Medical History No medical history recorded. Gynecological HistoryNo gynecological history recorded. Obstetrics History GPAL:G 0 P 0 0 0 0 Past Encounters Encounter ID Performer Location Encounter Start Date Encounter Closed Date Diagnosis/Indication Diagnosis SNOMED-CT Code Diagnosis ICD10 Code [id number] ISHMAEL ZAMAN MD [facility] [address] [place] [address] 01/25/2024 11:07:08 01/25/2024 12:32:28 Sensorineural hearing loss of bilateral ears 652044778 H90.3 Family his tory of hearing loss 073134667 Z82.2 [id number] HÉCTOR SCOTT [facility] [place] 100 [facility] [place] [address] 01/25/2024 11:59:19 01/26/2024 07:44:56 Mixed conductive and sensorineural hearing loss, bilateral 714350499 H90.6 Sensorineu ral hearing loss of bilateral ears 760480756 H90.3 Health Concerns Section Related Observation LastModified by Organization Detai ls LastModified Time None Recorded Concern Status LastModified by Organization Details LastModified Time None Recorded Payers Encounter Date Sequence Insurance Name Policy Number Policy Gutierrez Covered Member ID Gutierrez Member ID Guarantor Name 01/25/2024 1 [place] [employer] [place] Kanwal Jimenez [id number] 3 Kanwal Jimenez 01/25/2024 2 [place]) [id number] Kanwal Jimenez [id number] Kanwal Jimenez Notes Date Note Type [...] October 2023 with updated audiometric testing from [facility] audiology showing a significant change in the right sensorineural thresholds, with significant worsening in speech discrimination. Patient reports maternal family history of childhood onset hearing loss, her mother had surgery on her ear but it did not help. Patient's brother has hearing loss as well which started in his 50s.Patient reports that she has since obtained binaural amplification from [facility] audiology. Overall she seems to be doing well with them, though she feels that on some days her general hearing is not as good as other days. She does not notice a unilateral fluctuation in hearing, only a general sense that her hearing has good days and bad days. No dizziness or balance disturbance at all. ISHMAEL ZAMAN MD [address] [place] [address], [place], [address], [facility] - [facility] 01/25/2024 12:36:25 OBGyn Episode No OBEpisode recorded.
--- OUTSIDE RECORDS SUMMARY | 2024-02-08 07:56 | XMS_ITS | Continuity of Care Document ---
Author Organization [place] - [facility], [facility] Address [address] [place] [address] Care Team Providers Care Supervisor [employer] Name Role Phone REMI SEGAL Primary Care Provider Assessment No assessment recorded. Plan of Treatment Reminders Order Date Submit Date Provider Last Modified By Organization Details Last Modified Time Details Appointments None recorded. Lab CBC w/ auto diff 2023 CANDI [facility], [address] [place] [address], [id number], 19:51:40 serology, syphilis 2023 024 [employer] 2 [facility], [address] [place] [address], [address], 4 12:05:00 TSH, serum or plasma 2023 024 CANDI [facility], [address] [place] [address], [address], 4 19:51:42 IVELISSE + rf (antinuclea r antibodies + rheumatoid factor), quantitativ e, serum 2023 024 CANDI [facility], [address], [address], 4 19:51:41 C-reactive protein, quantitativ e, serum or plasma 2023 024 [email or web address] 2 [facility], [address] [place] [address] [address], [address], [place], [address], 4 12:05:00 ESR (erythrocyt e sedimentati on rate), blood 2023 024 CANDI [facility], [address] [facility], [address], [place], [address], 19:51:43 HbA1c (hemoglobin A1c), blood 2023 024 CANDI [facility], [address] [facility], [address], [place], [address], 19:51:41 Referral None recorded. Procedures None recorded. Surgeries None recorded. Imaging MRI, brain + internal auditory canal, w/wo contrast - MRI, BRAIN + INTERNAL AUDITORY CANAL, W/WO CONTRAST [address] [facility] [address] [facility], [place], [address], 12:32:28 Medication Orders None recorded. Patient TargetsNo [...] Sensorine ural hearing loss of bilateral ears [id number] Active 2021 Sensorineu ral hearing loss, bilateral; Note: Date Diagnosed: 11/01/2021 9:20 AM (H90.3) Not Available [facility] 02:36:19 Mixed conductiv e and sensorine ural hearing loss, bilateral [id number] Active 2023 SOLITARIO MENCHACA MD [address] [facility] [address], [place], [address] , [facility] - [facility] 13:40:48 Problem Notes None recorded. Procedures Surgical History Date Name Laterality Status Provider Name and Address Organization Details Recorded Time 01/25/2024 Comp Audio with Tymps (42817 & 72057) completed HARRY JOYNER, [facility] [address] [facility],[place] [address], [place], [address], [place] - [facility] 01/25/2024 12:00:11 Imaging Results None recorded. [...] mg tablet 01/24 completed Medicati on ID: [id number] B rand Name: norethin drone (contrac eptive) Send Method: E-Prescr ibed Sub s Allowed: subs OK Medic ationGen ericName : norethin drone (contrac eptive) Not Available Not Available Not Available Vitals Date Recorded Body height Body mass index (BMI) Body weight Provider Name and Address Organization Details Last Updated DateTime 01/25/2024 160.02 cm 31 kg/m2 24983.66 g Osiris Baltazar [place] - [facility] 01/25/2024 11:18:48 Social History None recorded. Functional Status None recorded. Mental Status None recorded. Family History Nothing Reported. Medical History No medical history recorded. Gynecological HistoryNo gynecological history recorded. Obstetrics History GPAL:G 0 P 0 0 0 0 Past Encounters Encounter ID Performer Location Encounter Start Date Encounter Closed Date Diagnosis/Indication Diagnosis SNOMED-CT Code Diagnosis ICD10 Code [id number] ISHMAEL ZAMAN MD [facility] [address] [place] [address] 01/25/2024 11:07:08 01/25/2024 12:32:28 Sensorineural hearing loss of bilateral ears 259267118 H90.3 Family his tory of hearing loss 582320108 Z82.2 [id number] HÉCTOR SCOTT [facility] [address] [place] [address] 01/25/2024 11:59:19 01/26/2024 07:44:56 Mixed conductive and sensorineural hearing loss, bilateral 281617962 H90.6 Sensorineu ral hearing loss of bilateral ears 729766871 H90.3 Health Concerns Section Related Observation LastModified by Organization Detai ls LastModified Time None Recorded Concern Status LastModified by Organization Details LastModified Time None Recorded Payers Encounter Date Sequence Insurance Name Policy Number Policy Gutierrze Covered Member ID Gutierrez Member ID Guarantor Name 01/25/2024 1 [place] [employer] [employer] Kanwal Jimenez [id number] Kanwal Jimenez 01/25/2024 2 [place] [id number] Kanwal Jimenez [id number] Kanwal Jimenez Notes Date Note Type [...] October 2023 with updated audiometric testing from [facility]iology showing a significant change in the right sensorineural thresholds, with significant worsening in speech discrimination. Patient reports maternal family history of childhood onset hearing loss, her mother had surgery on her ear but it did not help. Patient's brother has hearing loss as well which started in his 50s.Patient reports that she has since obtained binaural amplification from [facility] audiology. Overall she seems to be doing well with them, though she feels that on some days her general hearing is not as good as other days. She does not notice a unilateral fluctuation in hearing, only a general sense that her hearing has good days and bad days. No dizziness or balance disturbance at all. ISHMAEL ZAMAN MD [address] [place] [address], [place], [address], [facility] - [facility] 01/25/2024 12:36:25 OBGyn Episode No OBEpisode recorded.
--- NOTE | 2024-02-08 14:14 | MHC.AU.HA3 ---
Hearing Instrument Follow-Up- Binaural Date of Visit: 02/08/24 Right Ear: Gilbert, Model, Color, Serial Number: Monserrat Soria I 70 Rbayron S#[id number] Teacher Physically Impaired Repair Warranty: 01/01/2027 Teacher Physically Impaired Loss and Damage Warranty: 01/01/2027 [facility] Service Plan: n/a Battery Size: Rechargeable Drum Tester/Slim Tube: 1M Earmold/Dome/CShell/SlimTip:silicone skeleton [id number] Warranty 05/04/2024 Type of Wax Guard: Cerustop Dispensed By: [facility] Date of Fittin12/09/2023 Left Ear: Gilbert, Model, Color, Serial Number: Monserrat Soria I 70 Rjimi S#[id number] Teacher Physically Impaired Repair Warranty: 01/01/2027 Teacher Physically Impaired Loss and Damage Warranty: 01/01/2027 [facility] Service Plan: n/a Battery Size: Rechargeable Drum Tester/Slim Tube: 2 M Earmold/Dome/CShell/SlimTip: silicone skeleton [id number] Warranty 05/04/2024 Type of Wax Guard: Cerustop Dispensed By: [facility] Date of Fittin12/09/2023 Follow-Up Summary: Seen for follow up. Brought recent audiogram from ENT which shows a change in hearing for the left with thresholds down in the lows re: October. Kanwal reports improvement following adjustments made last week. Did not adjust hearing aids further today. Kanwal reports she has not had need to try out adjusting volume of hearing aids since last visit. Reports new molds are more comfortable. Kanwal reports she has an MRI today and expects to follow up with ENT at some point following MRI. Recommended re-eval six months to monitor thresholds unless other recommendation made by ENT. Return for hearing aid adjustment as needed. Recommendations: Recommendations: Hearing instrument follow-up or maintenance as needed. Diagnosis Code(s): Primary Diagnosis: H90.3 Bilateral Sensorineural Hearing Loss Secondary Diagnosis: H93.12 Tinnitus, Left Ear Signature: Provider: Lion Aguilar, [facility]
== END 2024-02-08 07:55 | disposition home or self-care (01) ==
LOC: HO.HAP 07:54
PROVIDERS: Visit Provider Internal Medicine
DX: Z13.89 Encounter for screening for other disorder (principal)

== ENCOUNTER 2024-03-18 08:32 | Outpatient (REF) | payer SELFPAY ==
--- OUTSIDE RECORDS SUMMARY | 2024-03-18 08:55 | XMS_ITS | Data Portability ---
Author Organization [place] - [facility], Allergy Address [address] [address] Care Team Providers Care Exceptional Children Teacher Assistant Name Role Phone REMI SEGAL Primary Care [...] pursue both options. She will be visiting [place] next month with her son and grandchild and I have no contraindications for her air travel [email or web address] Not available 11/02/2023 13:49:55 02/15/2024 02/15/2024 Laboratory testi ng and MRI results reviewed with patient in detail. There do not appear to be any infectious, metabolic, autoimmune, inflammatory or anatomic anomalies that would explain the patient's progressive hearing loss. The newly acquired information today regarding her strong family history of early onset and progressive hearing loss makes this much more likely to represent a genetic etiology. As such, she should continue to work with her manager chemical at [facility] audiology to ensure that her hearing aids are adjusted to match her current level of hearing loss. I would like to repeat her hearing test in another 4 months or so in order to monitor for signs of additional progression that would warrant readjustment of her amplification technology. In reviewing her laboratory testing, I neglected to order a Lyme disease titer. She would like to ensure that this is negative, so I will order this test. [email or web address] Not available 02/15/2024 11:38:16 Plan of Treatment Reminders Order Date Submit Date Provider Last Modified By Organization Details Last Modified Time Details Appointments Hearing Test 2024 09:00A M Hearing Test Not available Not available Not available Establish ed 10 2024 09:30A M ISHMAEL ZAMAN MD Not available Not available Not available Lab CBC w/ auto diff 2023 CANDI [facility], [address], [address], [place], [address], 02/02/2024 19:51:40 serology, syphilis 2023 024 [email or web address] [facility], [address], [address], [place], [address], 02/05/2024 12:05:00 TSH, serum or plasma 2023 CANDI [facility], [address], [address], [place], [address], 02/02/2024 19:51:42 IVELISSE + rf (antinucl ear antibodie s + rheumatoi d factor), quantitat ana maría, serum 2023 024 CANDI [facility], [address], [address], [place], [address], 02/02/2024 19:51:41 C-reactiv e protein, quantitat ana maría, serum or plasma 2023 024 [email or web address] [facility], [address], [address], [place], [address], 02/05/2024 12:05:00 ESR (erythroc yte sedimenta tion rate), blood 2023 024 CANDI [facility], [address], [address], [place], [address], 02/02/2024 19:51:43 HbA1c (hemoglob in A1c), blood 2023 024 CANDI [facility], [address], [address], [place], [address], 02/02/2024 19:51:41 borrelia burgdorfe ri IgG + IgM + total panel, IA, serum 2024 025 BERWICK [facility], [address], [address], [place], [address], 02/16/2024 13:16:31 Referral None recorded. Procedures None recorded. Surgeries None recorded. Imaging MRI, brain + internal auditory canal, w/wo contrast - MRI, BRAIN + INTERNAL AUDITORY CANAL, W/WO CONTRAST 2023 024 [facility] ([facility]), [address], [place], [address], 02/09/2024 14:28:52 Medication Orders None recorded. Patient TargetsNo targets recorded. Patient InstructionsNo instructions recorded. Reason for Referral None Reported. Results Created Date Observation Date Name Description Value Unit Range Abnormal Flag Note LastModifiedBy Organization Detail LastModifiedTime 01/25/20 24 01/25/2024 CBC WITH DIFFE RENTI AL/PL ATELE T WBC 9.0 x10e3 /uL 3.4-10 .8 normal Not Available [facility] ([facility]) [address] [place], [address], 02/02/2024 19:51:40 01/25/20 24 01/25/2024 CBC WITH DIFFE RENTI AL/PL ATELE T RBC 4.45 x10e6 /uL 3.77-5 .28 normal Not Available [facility] ([facility]) [address] [place], [address], 02/02/2024 19:51:40 01/25/20 24 01/25/2024 CBC WITH DIFFE RENTI AL/PL ATELE T hemoglobin 14.5 g/dL 11.1-1 5.9 normal Not Available [facility] ([facility]) [address] [place], [address], 02/02/2024 19:51:40 01/25/20 24 01/25/2024 CBC WITH DIFFE RENTI AL/PL ATELE T hematocrit 43.2 % 34.0-4 6.6 normal Not Available [facility] ([facility]) [address] [facility], [place], [address], 02/02/2024 19:51:40 01/25/20 24 01/25/2024 CBC WITH DIFFE RENTI AL/PL ATELE T MCV 97 fL 79-97 normal Not Available [facility] ([facility]) [address] [place], [address], 02/02/2024 19:51:40 01/25/20 24 01/25/2024 CBC WITH DIFFE RENTI AL/PL ATELE T MCH 32.6 pg 26.6-3 3.0 normal Not Available [facility] ([facility]) [address] [place], [address], 02/02/2024 19:51:40 01/25/20 24 01/25/2024 CBC WITH DIFFE RENTI AL/PL ATELE T MCHC 33.6 g/dL 31.5-3 5.7 normal Not Available [facility] ([facility]) [address] [place], [address], 02/02/2024 19:51:40 01/25/20 24 01/25/2024 CBC WITH DIFFE RENTI AL/PL ATELE T RDW 12.0 % 11.7-1 5.4 Not Available [facility] ([facility]) [address] [place], [address], 02/02/2024 19:51:40 01/25/20 24 01/25/2024 CBC WITH DIFFE RENTI AL/PL ATELE T platelets 267 x10e3 /uL 150-45 0 normal Not Available [facility] ([facility]) [address] [place], [address], 02/02/2024 19:51:40 01/25/20 24 01/25/2024 CBC WITH DIFFE RENTI AL/PL ATELE T neutrophils 72 % not estab. normal Not Available [facility] ([facility]) [address] [facility], [place], [address], 02/02/2024 19:51:40 01/25/20 24 01/25/2024 CBC WITH DIFFE RENTI AL/PL ATELE T lymphs 18 % not estab. normal Not Available [facility] ([facility]) [address] [facility], [place], [address], 02/02/2024 19:51:40 01/25/20 24 01/25/2024 CBC WITH DIFFE RENTI AL/PL ATELE T monocytes 7 % not estab. normal Not Available [facility] ([facility]) [address] [facility], [place], [address], 02/02/2024 19:51:40 01/25/20 24 01/25/2024 CBC WITH DIFFE RENTI AL/PL ATELE T eos 3 % not estab. normal Not Available [facility] ([facility]) [address] [facility], [place], [address], 02/02/2024 19:51:40 01/25/20 24 01/25/2024 CBC WITH DIFFE RENTI AL/PL ATELE T basos 0 % not estab. normal Not Available [facility] ([facility]) [address] [facility], [place], [address], 02/02/2024 19:51:40 01/25/20 24 01/25/2024 CBC WITH DIFFE RENTI AL/PL ATELE T immature cells MACHINE RECORDS UNITS SUPERVISOR Not Available [facility] ([facility]) [address] [place], [address], 02/02/2024 19:51:40 01/25/20 24 01/25/2024 CBC WITH DIFFE RENTI AL/PL ATELE T neutrophils (absolute) 6.4 x10e3 /uL 1.4-7. 0 normal Not Available [facility] ([facility]) [address] [facility], [place], [address], 02/02/2024 19:51:40 01/25/20 24 01/25/2024 CBC WITH DIFFE RENTI AL/PL ATELE T lymphs (absolute) 1.6 x10e3 /uL 0.7-3. 1 normal Not Available [facility] ([facility]) [address] [facility], [place], [address], 02/02/2024 19:51:40 01/25/20 24 01/25/2024 CBC WITH DIFFE RENTI AL/PL ATELE T monocytes(ab solute) 0.7 x10e3 /uL 0.1-0. 9 normal Not Available [facility] ([facility]) [address] [facility], [place], [address], 02/02/2024 19:51:40 01/25/20 24 01/25/2024 CBC WITH DIFFE RENTI AL/PL ATELE T eos (absolute) 0.3 x10e3 /uL 0.0-0. 4 normal Not Available [facility] ([facility]) [address] [facility], [place], [address], 02/02/2024 19:51:40 01/25/20 24 01/25/2024 CBC WITH DIFFE RENTI AL/PL ATELE T baso (absolute) 0.0 x10e3 /uL 0.0-0. 2 normal Not Available [facility] ([facility]) [address] [place], [address], 02/02/2024 19:51:40 01/25/20 24 01/25/2024 CBC WITH DIFFE RENTI AL/PL ATELE T immature granulocytes 0 % not estab. Not Available [facility] ([facility]) [address] [place], [address], 02/02/2024 19:51:40 01/25/20 24 01/25/2024 CBC WITH DIFFE RENTI AL/PL ATELE T immature grans (abs) 0.0 x10e3 /uL 0.0-0. 1 Not Available [facility] ([facility]) [address] [facility], [place], [address], 02/02/2024 19:51:40 01/25/20 24 01/25/2024 CBC WITH DIFFE RENTI AL/PL ATELE T NRBC MACHINE RECORDS UNITS SUPERVISOR Not Available [facility] ([facility]) [address] [facility], [place], [address], 02/02/2024 19:51:40 01/25/2001/25/2024 CBC WITH DIFFE RENTI AL/PL ATELE T hematology comments: MACHINE RECORDS UNITS SUPERVISOR Not Available [facility] ([facility]) [address] [facility], [place], [address], 02/02/2024 19:51:40 01/25/20 24 01/27/2024 A1C W/GLY COMAR K(R) REFLE X Hb A1C diabetic assessment 5.5 %Hb Note: A refle x test was order ed on this speci men. If A1c resul ts are betwe en a value of 6.0 to 8.0 (incl uding 6.0 and 8.0), Glyco Sal testi ng is perfo rmed. Glyco Sal refle cts post prand ial gluco se spike s from the past 2 weeks , where as A1c refle cts avera ge glyce taz contr ol over the past 3 month s. Refer ence Range : Andria l: <5.7 Incre ased risk for diabe jenifer: 5.7 - 6.4 Ongoi ng Hyper glyce barber: >6.4 Glyce taz contr ol for adult s with diabe jenifer: <7.0 (ADA) Not Available [facility] [address] [facility], [place], [address], 02/02/2024 19:51:41 01/25/20 24 01/27/2024 A1C W/GLY COMAR K(R) REFLE X estimated average glucose 111 mg/dL Not Available [facility] [address] [facility], [place], [address], 02/02/2024 19:51:41 01/25/20 24 01/27/2024 A1C W/GLY COMAR K(R) REFLE X glycomark(R) (1,5 Ag) TNP ug/mL Testi ng Not Indic ated Glyco Sal( TM) is inten ded for use with manag ing glyce taz contr ol in diabe tic patie nts. A low resul t corre spond s to high gluco se peaks . 1, 5-AG blood level s can be affec graham by clini clayton condi tions or medic ation s. Pleas e refer to the direc tory of servi santiago or labco rp websi te test menu for detai led list of limit ation s. Not Available [facility] [address] [facility], [place], [address], 02/02/2024 19:51:41 01/25/20 24 01/26/2024 IVELISSE+R F QN IVELISSE direct NEGATI VE negati ve Not Available [facility] ([facility]) [address] [facility], [place], [address], 02/02/2024 19:51:41 01/25/20 24 01/26/2024 IVELISSE+R F QN rheumatoid factor (rf) 11.7 IU/mL <14.0 normal Not Available [facility] ([facility]) [address] [place], [address], 02/02/2024 19:51:41 01/25/20 24 02/02/2024 THYRO ID STIMU LATIN G HORMO NE TSH-icma 1.4 uu/mL Refer ence Range : Non-P regna nt Adult 0.450 -4.50 0 Pregn sotero First Trime ster 0.100 -4.00 0 Secon d Trime ster 0.200 -4.00 0 Third Trime ster 0.300 -4.50 0 Not Available [facility] [address] [facility], [place], [address], 02/02/2024 19:51:42 01/25/20 24 01/26/2024 SYPHI LIS RPR W/REF FANNY RPR NON REACTI VE non reacti ve Not Available [facility] ([facility]) [address] [facility], [place], [address], 02/02/2024 19:51:42 01/25/20 24 01/26/2024 SEDIM ENTAT ION RATE- WESTE RGREN sedimentatio n rate-westerg narendra 9 mm/HR 0-40 normal Not Available [facility] ([facility]) [address] [facility], [place], [address], 02/02/2024 19:51:43 01/25/20 24 01/26/2024 C-JAMES CTIVE PROTE IN, QUANT C-reactive protein, quant 5 mg/L 0-10 normal Not Available [facility] ([facility]) [address] [facility], [place], [address], 02/02/2024 19:51:43 02/14/19 25 02/16/2024 LYME DISEA SE SEROL OGY W/REF FANNY lyme total antibody rosa Negati ve negati ve Lyme antib odies not detec graham. Refle x testi ng is not indic ated. No labor atory evide nce of infec tion with B. burgd orfer i (Lyme disea se). Negat ana maría resul ts may occur in patie nts recen tly infec graham (less than or equal to 14 days) with B. burgd orfer i. If recen t infec tion is suspe cted, repea t testi ng on a new sampl e colle cted in 7 to 14 days is recom lucina d. Not Available [facility] ([facility]) [address] [facility], [place], [address], 02/16/2024 13:16:30 12/16/20 24 audio gram No observ ation record ed. [email or web address] Not Available 2024 11:33:58 02/09/20 24 02/08/2024 MRI, brain + brain stem, w/wo contr ast [facility]- [facility] Access ion Number : [id number] Alida osorio Name: Kanwal Espinosa Record Number : [id number] Date of : 1960 Date of Exam: 2023 Referr ing Physic alexia: Mane Zaman re [facility]ose [address] [place] [address] Exam: MR Brain (C-/C+ ) CPT 26198 Room Descri ption: [place] Siem Verio 3.0T HISTOR Y: Bilate ral sensor ineura l hearin g loss. TECHNI QUE: Multip lanar multis equenc e MRI of the brain (IAC) was obtain ed before and after the admini strati on of 16 cc of Dotare m. COMPAR MOIRA: No prior studie s are availa ble for compar moira at [facility] . FINDIN GS: On the high-r esolut ion axial T2-jason ghted images , a short vascul ar loop is situat ed betwee n the right cochle ar/fac ial nerves and superi or and inferi or vestib ular nerves . Expect ed T2 bright cochle ar signal is mainta ined. There is no mass or abnorm al enhanc ement within either cerebe llopon victoriano angle cister n or commercial internship al audito ry canal. No abnorm al cochle ar enhanc ement. The ventri cles are normal in size. The cerebe llum and brains tem are normal in signal . Multip le scatte red T2 bright foci are presen t within the suprat entori al white matter . These are nonspe cific, but are compat ible with chroni c microa ngiopa thic/s mall vessel ischem ic change . The visual ized extrac ranial soft tissue s and orbita l struct ures are unrema rkable . Fluid is presen t within the left maxill danika sinus. IMPRES ROSALIE: 1. No retroc ochlea r lesion . 2. Fluid within the left maxill danika sinus is nonspe cific, but could repres ent acute sinusi tis in the [facility] mar[facility] Mtz onical ly Signed By: Deshawn Greenfield MD [address] [facility] ([facility]) [address], [place], [address], 02/15/2024 11:33:58 Result Notes None recorded. Problems Name Problem SNOMED Code Status Onset Date Resolution Date Notes Provider Name and Address Organization Details Recorded Time Sensorine ural hearing loss of bilateral ears 459653328 Active 2021 Sensorineu ral hearing loss, bilateral; Note: Date Diagnosed: 11/01/2021 9:20 AM (H90.3) Not Available [facility] 4 02:36:19 Mixed conductiv e and sensorine ural hearing loss, bilateral 860985653 Active 2023 SOLITARIO MENCHACA MD [address] [place] [address], [facility] [place] [place], [address] , [place] - [facility] 4 13:40:48 Problem Notes None recorded. Procedures Surgical History Date Name Laterality Status Provider Name and Address Organization Details Recorded Time 5 Telehealth completed ISHMAEL ZAMAN MD [address] [place] [address], [phone], [facility] - [facility] 02/15/2024 11:33:49 4 Comp Audio with Tymps (05916 & 32913) completed HÉCTOR SCOTT [address] [place] [address], [phone], [facility] - [facility] 01/25/2024 12:00:11 Imaging Results Imaging Date Name Status LastModified by Organiz ation Details LastModified Time 01/25/2024 audiogram [place] [id number] Information no t available 02/15/2024 11:33:58 02/08/2024 MRI, brain + brain stem, w/wo contrast completed [address] [facility] ([facility]) [address] [place], [address], 02/15/2024 11:33:58 Procedure Notes None recorded. Medical Equipment None [...] estradiol 0.01% (0.1 mg/gram) vaginal cream USE 1/ APPLICAT ORFUL VAGINALL Y EVERY 7 DAYS 01/24 completed Not Available Not Available Not Available albuterol sulfate HFA 90 mcg/actua tion aerosol inhaler INHALE TWO PUFFS BY MOUTH FOUR TIMES A DAY NEEDED active Not Available Not Available No t Available norethind nelson (contrace ptive) 0.35 mg tablet 01/24 completed Medicati on ID: [id number] B rand Name: norethin drone (contrac eptive) Send Method: E-Prescr ibed Sub s Allowed: subs OK Medic ationGen ericName : norethin drone (contrac eptive) Not Available Not Available Not Available Vitals Date Recorded Body height Body mass index (BMI) Body weight Provider Name and Address Organization Details Last Updated DateTime 11/02/2023 160.02 cm 31.9 kg/m2 64222.63 g Kaylin Levy [place] - [facility] 11/02/2023 13:27:43 Date Recorded Body height Body mass index (BMI) Body weight Provider Name and Address Organization Details Last Updated DateTime 01/25/2024 160.02 cm 31 kg/m2 29050.66 g Osiris Baltazar [place] - [facility] 01/25/2024 11:18:48 Date Recorded Body height Provider Name an d Address Organization Details Last Updated DateTime 02/15/2024 160.02 cm ISHMAEL ZAMAN MD [address] [place] [address], [phone], [place] - [facility] 02/15/2024 11:32:21 Social History None recorded. Functional Status None recorded. Mental Status None recorded. Family History Nothing Reported. Medical History No medical history recorded. Gynecological HistoryNo gynecological history recorded. Obstetrics History GPAL:G 0 P 0 0 0 0 Past Encounters Encounter ID Performer Location Encounter Start Date Encounter Closed Date Diagnosis/Indication Diagnosis SNOMED-CT Code Diagnosis ICD10 Code Diagnosis Note [id number] SOLITARIO MENCHACA MD [facility] [address] [place] [address] 11/02/2023 13:02:04 11/02/2023 13:55:29 Mixed conductive and sensorineural hearing loss, bilateral 859193080 H90.6 [id number] ISHMAEL ZAMAN MD [facility] [address] [facility] [place] [address] 01/25/2024 11:07:08 01/25/2024 12:32:28 Sensorineural hearing loss of bilateral ears 768380810 H90.3 Audiometri c testing was repeated today and compared to audiograms from June 2021, and October 2023. There has been a significan t change in the auditory thresholds in both ears, primarily affecting the low and mid frequencie s. Today we discussed that this is a very unusual pattern of hearing loss, particular ly in light of what appears to be a fluctuatin g phenomenon .Today I recommende d that she go ahead with the MRI scan of the brain and internal auditory canals with gadolinium .I am also sending a lab panel which will look for infectious , autoimmune , or other metabolic etiologies for fluctuatin g and progressiv e hearing loss.I have given her a copy of her audiogram to bring to her audiologis t at [facility] audiology to ensure that her hearing aids are adjusted to match her current level of hearing loss.We will contact her over the portal or by phone message once we have some results to decide on next step in treatment. If this does appear to have an autoimmune component we could do a steroid trial and/or rheumatolo gy evaluation . Family his tory of hearing loss 262366130 Z82.2 [id number] HÉCTOR SCOTT [facility] [address] [place] [address] 01/25/2024 11:59:19 01/26/2024 07:44:56 Mixed conductive and sensorineural hearing loss, bilateral 811624572 H90.6 Right Ear:Modera tely-sever e through 1K Hz rising to a mild SNHL through 3K Hz sloping to a moderate HF HL with excellent speech discrimina tion.Type C tympanogra m.Left Ear:Severe rising to moderate MHL with excellent speech discrimina tion.Type C tympanogra m. Sensorineu ral hearing loss of bilateral ears 251220383 H90.3 [id number] ISHMAEL ZAMAN MD [facility] [address] [address] 02/15/2024 11:32:04 02/15/2024 11:49:32 Sensorineural hearing loss of bilateral ears 160961521 H90.3 Family his tory of hearing loss 721799866 Z82.2 Health Concerns Section Related Observation LastModified by Organization Detai ls LastModified Time None Recorded Concern Status LastModified by Organization Details LastModified Time None Recorded Advance Directives Directive None Recorded Payers Encounter Date Sequence Insurance Name Policy Number Policy Gutierrez Covered Member ID Gutierrez Member ID Guarantor Name 11/02/2023 1 [place] Kanwal Betancourt Doherty [id number] 3 Kanwal Asia Jimenez 11/02/2023 2 [place] [id number] Kanwal Betancourt Doherty [id number] Kanwal M Jimenez 01/25/2024 1 [place] Kanwal Asia Jimenez [id number] 3 Kanwal Asia Jimenez 01/25/2024 2 [place] [id number] Kanwal M Jimenez [id number] Kanwal Asia Jimenez 01/25/2024 1 [place] Kanwal Asia Jimenez [id number] 3 Kanwal M Jimenez 01/25/2024 2 [place] [id number] Kanwal Asia Jimenez [id number] Kanwal Asia Jimenez 02/15/2024 1 [place] Kanwal Asia Jimenez [id number] 3 Kanwal Jimenez 02/15/2024 2 [facility] [id number] Knawal Jimenez [id number] Kanwal Jimenez Notes Date Note Type Note Provider Name and Address Organization Details Recorded Time 11/02/2023 text/html hearing loss10/13/2023 audio at [facility] right 64% left 92%Severe to moderate mixed hearing loss on the right, moderate mixed hearing loss on the left. Thresholds down significantly on the right compared with previous in 2021. Stable on the left. family hx of hearing loss, mother had a surgery on ear but it did not help SOLITARIO MENCHACA MD [address] [facility],[address], [address], [place] [facility] 11/02/2023 13:50:11 01/25/2024 text/html Patient who saw Dr. Menchaca [...] October 2023 with updated audiometric testing from [facility] audiology showing a significant change in the right sensorineural thresholds, with significant worsening in speech discrimination. Patient reports maternal family history of childhood onset hearing loss, her mother had surgery on her ear but it did not help. Patient's brother has hearing loss as well which started in his 50s.Patient reports that she has since obtained binaural amplification from [facility] audiology. Overall she seems to be doing well with them, though she feels that on some days her general hearing is not as good as other days. She does not notice a unilateral fluctuation in hearing, only a general sense that her hearing has good days and bad days. No dizziness or balance disturbance at all. ISHMAEL ZAMAN MD [address] [facility] [address], [place], [address], [place] - [facility] 01/25/2024 12:36:25 02/15/2024 text/html Patient with bilateral, apparently progressive sensorineural hearing loss who I sent for a variety of laboratory testing and MRI scan for further evaluation. Telehealth visit initiated to discuss these findings. In addition, patient reports that she has discussed her hearing problems with several other family members and there is a very strong family history of early onset and progressive hearing loss in an asymmetric fashion in 6 or 7 of her first and second degree relatives. ISHMAEL ZAMAN MD [address] [place] [address], [phone], [facility] - [facility] 02/15/2024 11:42:20 OBGyn Episode No OBEpisode recorded.
== END 2024-03-18 08:33 | disposition home or self-care (01) ==
LOC: HO.HAP 08:32
PROVIDERS: Visit Provider Internal Medicine
DX: Z46.1 Encounter for fitting and adjustment of hearing aid (principal); H90.3 Sensorineural hearing loss, bilateral

== ENCOUNTER 2024-04-11 09:23 | Outpatient (AMB) | payer MEDICARE, SELFPAY ==
--- NOTE | 2024-04-11 09:35 | MHC.OFFVIS ---
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 Complaining of vaginal dryness and painful intercourse, the patient ran out of estradiol vaginal cream and is requesting a refill Last Pap/HPV was negative in 04/02 Last Mammogram was in 06/02, was negative according to the patient, no reports available since it was done at [facility] Last Colonoscopy was 11 years ago, the patient is due for another screening colonoscopy, is in the process of scheduling her appointment with GI No previous screening DEXA scan [facility] Medical History Asthma Surgical History History of History of bilateral hip replacements Family History Mother HTN (hypertension) Social History Household Members: Significant Other Housing: House Alcohol intake: never Patient Tobacco Use Status: Never used Tobacco service: No Current occupational status: retired Sexual orientation: Straight/Heterosexual Gender identity: Female Female Reproductive History Menstrual Age of Menarche: 10 Total pregnancies: 1 Full term: 1 Date of last pap smear: 03/26/21 (negative pap smear, negative hpv) Date of Mammogram: 06/02/22 (bi rad 1) History of abnormal mammogram: No Review of Systems Const All systems reviewed & are unremarkable except as noted in HPI and below Card Reports as per HPI Resp Reports as per HPI GI Reports as per HPI and Reports no additional complaints Reports as per HPI Physical Exam Vital Signs: Last Vital Signs BP 126/76 04/11/24 09:42 BMI result Body Mass Index 32.9 Const General: cooperative, healthy appearing and comfortable Chest Chest palpation & inspection: normal inspection of the chest and normal palpation of entire chest wall Breast/axilla inspection: normal inspection of the breasts and normal inspection of the axillae Breast/axilla palpation: normal palpation of the breasts, normal palpation of the axillae and no axillary lymphadenopathy Resp Effort & Inspection: normal respiratory effort Auscultation: clear to auscultation bilaterally Percussion: percussion normal Cardio Palpation: normal PMI Rate: regular rate Rhythm: regular rhythm Heart sounds: no murmurs and no rubs Peripheral pulses: Peripheral pulses 2+ throughout GI Inspection: Yes normal to inspection Palpation (GI): Soft to palpation, nontender, no guarding, not rigid and No hepatosplenomegaly present Percussion: Yes normal to percussion Auscultation: normal bowel sounds Rectal Exam - Female: deferred General: Yes bladder normal to palpation External Female Exam: No lesion Speculum Exam - Vagina: normal appearance of the vagina, normal palpation, normal vaginal discharge and not erythematous Speculum Exam - Cervix: normal appearance of the cervix and normal palpation Bimanual exam- vagina & uterus: normal bimanual exam, normal palpation, uterine size normal, bladder normal to palpation, consistency normal and normal palpation Bimanual Exam- Adnexa, other: normal adnexae, no masses and no tenderness Assessment & Plan Assessment & Plan (1) Well woman exam: Code(s): Z01.419 - Encounter for gynecological examination (general) (routine) without abnormal findings Category: Medical Plan: Co testing not indicated since the patient 's age is above 65 with no history of abnormal Pap smears last 25 years. Counseled the patient about the recommended dietary allowance of 1200 mg of Calcium & 800 IU of vitamin D. Instructions given the patient to schedule next screening Mammogram in 06/03. The patient is in the process of scheduling her appointment with GI for screening colonoscopy done. Will order DEXA scan . The patient was instructed to perform monthly self-breast exams and to schedule a 2 week DEXA scan follow-up appointment and an annual exam in a year; All questions answered and the patient verbalized understanding. (2) Atrophic vaginitis: Code(s): N95.2 - Postmenopausal atrophic vaginitis Category: Medical Plan: Discussed with the patient the finding on pelvic exam showing atrophic vaginitis, and treatment options including KY jelly versus vaginal estrogen. Discussed with the patient the pros and cons of estrogen vaginal cream including increase in the risk of CT, breast cancer, DVT, PE and strokes others. The patient understands the risk and is interested in proceeding with a prescription. The patient requested to have any written prescription and decide if she wants to follow it up around after discussing it with her . Estradiol 0.011% half an applicator intravaginally daily for 2 weeks followed by 2-3 times maintenance therapy was sent to patient's prescription with 3 refills. All questions answered, the patient verbalized understanding Orders: Orders XR DEXA axial skeleton Today Z78.0 - Asymptomatic menopausal state Coding Level of Care Code New Pt Prev Care >65yr (36351) Diagnoses Well woman exam Z01.419 Atrophic vaginitis N95.2
[2024-04-11 09:42] VITALS: BP 126/76; BMI 32.9
== END 2024-04-11 10:05 | disposition home or self-care (01) ==
LOC: HO.HWS 09:23
PROVIDERS: PCP Internal Medicine; Visit Provider Obstetrics & Gynecology
DX: Z01.419 Encounter for gynecological examination (general) (routine) without abnormal findings (principal); N95.2 Postmenopausal atrophic vaginitis
CPT/HCPCS: 99213; G0101

== ENCOUNTER → 2024-04-11 09:23 | Outpatient (BNVA) | payer MEDICARE, SELFPAY | PROVIDERS: PCP Internal Medicine; Visit Provider Obstetrics & Gynecology | DX: Z01.419 Encounter for gynecological examination (general) (routine) without abnormal findings (principal); N95.2 Postmenopausal atrophic vaginitis | CPT/HCPCS: 99212; G0101 ==

== ENCOUNTER 2024-05-10 08:34 | Outpatient (REF) | payer MEDICARE, SELFPAY ==
--- NOTE | ~2024-05-10 | MM_ITS ---
EXAMINATION: DXA BONE DENSITY AXIAL HISTORY: Estrogen deficiency TECHNIQUE: [employer] Dual energy absorptiometry (DEXA) of the lumbar spine and distal forearm was performed. The hips were not evaluated due to a history of bilateral total hip arthroplasty. COMPARISON: There are no prior studies for comparison. FINDINGS: The bone mineral density of the lumbar spine is 1.515 with a T-score of 2.9, and a Z-score of 4.0. This is indicative of normal bone mineral density. The bone mineral density of the distal forearm is 0.958 with a T-score of 0.9, and a Z-score of 2.4. This is indicative of normal bone mineral density. MM/XR DEXA axial skeleton IMPRESSION: Based on bone mineral density, and according to World Health Organization (WHO) criteria, the diagnosis is consistent with normal bone mineral density. All bone density values are in grams per centimeter squared (g/cm2). Statistically, 68% of repeat scans fall within 1 SD (+/- 0.010 g/cm2 for AP spine L1-L4) and 1 SD (+/- 0.012 g/cm2 for femur total) FRAX is a trademark of the [employer] [place] [facility] Met[facility] [employer] Disease, a World Health Organization (WHO) Collaborating Center. Electronically signed by: Grey Sosa MD 05/10/2024 09:28 AM EDT
== END 2024-05-10 08:35 | disposition home or self-care (01) ==
LOC: HO.MAMMO 08:34
PROVIDERS: PCP Internal Medicine; Visit Provider Obstetrics & Gynecology
DX: Z13.820 Encounter for screening for osteoporosis (principal); Z78.0 Asymptomatic menopausal state
CPT/HCPCS: 77080

== ENCOUNTER → 2024-05-10 08:45 | Outpatient (BNV) | payer MEDICARE, SELFPAY | PROVIDERS: PCP Internal Medicine; Visit Provider Radiology Diagnostic Radiology | DX: E28.39 Other primary ovarian failure (principal) | CPT/HCPCS: 77080 ==

== ENCOUNTER 2024-06-22 10:25 | Outpatient (AMB) | payer MEDICARE, SELFPAY ==
[2024-06-22 10:28] VITALS: BP 150/78; PULSE 78; RESP 16; TEMP 36.5; O2SAT 99; BMI 33.7
--- NOTE | 2024-06-22 10:28 | MHC.PC.OV ---
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: No Accompanied by: Self / Same As Patient Allergies hydromorphone [From DILAUDID] Allergy (Unknown, Verified 06/22/24 10:38) HALLUCINATIONS Tobacco use date assessed: 06/22/24 Fall risk assessment: No Falls in past year Last assessed Fall Risk: 06/22/24 Dental Screening Dental Screen Date: 06/22/24 Did you have a dental visit in the last 12 months?: Yes Did you have a dental problem in the last 6 months where you did not have access to dental care?: No HPI HPI Comments History of Present Illness Details 64-year-old female with history of mild intermittent asthma and obesity presents to the office today for evaluation of right knee and ankle pain. She reports she stepped down a steep stair about 2 weeks ago and since then has pain in the medial and posterior aspect of the right knee as well as the anterior aspect of the right ankle. She denies any twisting motions or inversion of the ankle. She states her pain has improved slightly over the last 2 weeks. She states upon waking, she has no pain. Currently reports pain at 3/10 which is similar to pain when walking or bearing weight. She states resting during the day often stiffens the areas. There is occasional radiation of the knee pain into the calf. She has been able to ambulate without any assistive device. She does have history of ORIF of the right ankle following a fracture in 2019. She has been taking ibuprofen 400 mg twice daily, reports this causes stomach irritation if taking any more frequently. She is also using ice and doing elevation which is helpful. [facility] Medical History Asthma Surgical History History of History of bilateral hip replacements Family History Mother HTN (hypertension) Social History Household Members: Significant Other Housing: House Alcohol intake: never Patient Tobacco Use Status: Never used Tobacco service: No Current occupational status: retired Sexual orientation: Straight/Heterosexual Gender identity: Female Cognitive needs: No Hearing needs: No Vision needs: No Female Reproductive History Menstrual Age of Menarche: 10 Questionnaire PHQ-9 Over the last 2 weeks, how often have you been bothered by any of the following problems? 1. Little interest or pleasure in doing things: not at all 2. Feeling down, depressed, or hopeless: not at all 3. Trouble falling or staying asleep, or sleeping too much: not at all 4. Feeling tired or having little energy: not at all 5. Poor appetite or overeating: not at all 6. Feeling bad about yourself - or that you are a failure or have let yourself or your family down: not at all 7. Trouble concentrating on things, such as reading the newspaper or watching television: not at all 8. Moving or speaking so slowly that other people could have noticed. Or the opposite - being so fidgety or restless that you have been moving around a lot more than usual: not at all 9. Thoughts that you would be better off or of hurting yourself in some way: not at all Total score: 0 Source: Developed by Drs. Grey King, Niyah Cobb, Terrance Perez and colleagues, with an educational negrita from [employer]. Thrive Questionnaire Date Thrive assessed: 06/22/24 I am a: Patient Within the past 12 months, did the food you bought not last and you didn't have the money to get more?: Never true Within the past 12 months, did you worry whether your food would run out before you got money to buy more?: Never true Do you have trouble paying for medicines?: No Do you have trouble getting transportation to medical appointments?: No Do you have trouble paying your heating and electricity bill?: No Do you have trouble taking care of your child, family member or friend?: No Do you have trouble with day-to-day activities such as bathing, preparing meals, shopping, managing finances, etc.?: No Are you currently unemployed and looking for a job?: No Are you interested in more education?: No THRIVE Score: 0 AUDIT C Alcohol Use Questionnaire (AUDIT-C) 1. How often do you have a drink containing alcohol?: Never 3. How often do you have six or more drinks on one occasion?: Never Total Score: 0 FERNANDO-7 AMB Questionnaire FERNANDO-7 Date FERNANDO - 7 assessed: 06/22/24 Feeling nervous, anxious, or on edge: 0 = Not at all Not being able to stop or control worryin = Not at all Worrying too much about different things: 0 = Not at all Trouble relaxin = Not at all Being so restless that it is hard to sit still: 0 = Not at all Becoming easily annoyed or irritable: 0 = Not at all Feeling afraid as if something awful might happen: 0 = Not at all Total FERNANDO-7 score (0-4 normal; 5-9 mild; 10-14 moderate; 15-21 severe): 0 Source: Developed by Drs. Grey King, Niyah Cobb, Terrance Perez and colleagues, with an educational negrita from [employer]. Review of Systems Const All systems reviewed & are unremarkable except as noted in HPI and below Physical exam (Primary Care) Vital Signs: Last Vital Signs Temp 97.7 F 06/22/24 10:28 Pulse 78 06/22/24 10:28 Resp 16 06/22/24 10:28 BP 150/78 H 06/22/24 10:28 Pulse Ox 99 06/22/24 10:28 BMI result Body Mass Index 33.7 Tobacco/Smoking Status: Tobacco use Status Tobacco use date assessed 06/22/24 06/22/24 10:30 Patient Tobacco Use Status Never used Tobacco 06/22/24 10:30 PHQ-9: PHQ-9 Score PHQ-9: Total score 0 06/22/24 11:35 Thrive Assessment: Date of Thrive Assessment Date Thrive assessed 06/22/24 06/22/24 10:30 Const Other: Constitutional - Awake and Alert, No apparent distress Eyes - PERRLA, EOMI Cardiovascular - S1S2, RRR, No edema Respiratory - Normal lung expansion, Normal respiratory effort, No respiratory distress, CTA bilaterally Extremities - no calf tenderness bilaterally, no swelling MSK - R knee- no bony abnormality, effusion, erythema, or swelling. Mild tenderness to palpation along the medial aspect of the right knee. Full extension and flexion. Negative Nancy test. Negative zuri test. R ankle- no bony abnormality, effusion, erythema, or swelling. Nontender to palpation. Full range of motion Skin - Warm/Dry Neurological - Alert & oriented x3, 5/5 BLE Psychological - Appropriate affect Coding Level of Care Code New Pt Level 3 (26481) Diagnoses Asthma J45.909 Right knee pain M25.561 Acute right ankle pain M25.571 Assessment & Plan Assessment & Plan (1) Asthma: Code(s): J45.909 - Unspecified asthma, uncomplicated Category: Medical Plan: Controlled. Use albuterol only as needed for shortness of breath and wheezing (2) Right knee pain: Code(s): M25.561 - Pain in right knee Category: Medical Plan: X-ray order to evaluate for any osseous abnormality. Doubt any fracture but does likely have osteoarthritis with possible Nolan's cyst. Suspect MCL strain less likely meniscal tear. She is only in mild discomfort. Recommend continuing with ibuprofen and RICE therapy. She is also given gentle exercises to perform at home. Should there be ongoing symptoms, can consider referral to physical therapy. (3) Acute right ankle pain: Code(s): M25.571 - Pain in right ankle and joints of right foot Category: Medical Plan: X-ray of the right ankle ordered to evaluate for any osseous abnormality or abnormality of plates or screws from prior fracture. Suspect strain versus pain from compensation related to the right knee pain. Continue ibuprofen and RICE therapy. Plan Follow up for physical exam with labs completed prior to visit Orders: Orders XR ankle RT 2V Today M25.571 - Pain in right ankle and joints of right foot Hemoglobin A1c Today Z00.00 - Encounter for general adult medical examination without abnormal findings Liver Panel Today Z00.00 - Encounter for general adult medical examination without abnormal findings TSH reflex Free T4 Today Z00.00 - Encounter for general adult medical examination without abnormal findings XR knee RT 3V Today M25.561 - Pain in right knee, M25.571 - Pain in right ankle and joints of right foot Basic Metabolic Panel Today Z00.00 - Encounter for general adult medical examination without abnormal findings Complete Blood Count Auto Diff Today Z00.00 - Encounter for general adult medical examination without abnormal findings Lipid Panel Today Z00.00 - Encounter for general adult medical examination without abnormal findings
== END 2024-06-22 11:09 | disposition home or self-care (01) ==
LOC: HO.HMCHD 10:25
PROVIDERS: PCP Internal Medicine; Visit Provider Internal Medicine
DX: J45.909 Unspecified asthma, uncomplicated (principal); M25.561 Pain in right knee; M25.571 Pain in right ankle and joints of right foot

== ENCOUNTER → 2024-06-22 10:25 | Outpatient (BNVA) | payer MEDICARE, SELFPAY | PROVIDERS: PCP Internal Medicine; Visit Provider Internal Medicine | DX: J45.909 Unspecified asthma, uncomplicated (principal); M25.561 Pain in right knee; M25.571 Pain in right ankle and joints of right foot | CPT/HCPCS: 99202 ==

== ENCOUNTER 2024-06-24 08:19 | Outpatient (REF) | payer MEDICARE, SELFPAY ==
--- NOTE | ~2024-06-24 | XR_ITS ---
CLINICAL HISTORY: M25.561 - Pain in right knee 3 view right knee Comparison: None Findings: No fractures or dislocations. Mild medial compartment joint space narrowing. No joint effusion. No radiopaque foreign body. IMPRESSION: 1. No acute findings. 2. Mild degenerative changes. This document has been electronically signed by: Paul Barba MD on 06/25/2024 08:19:30
--- NOTE | ~2024-06-24 | XR_ITS ---
CLINICAL HISTORY: M25.571 - Pain in right ankle and joints of right foot 3 view right ankle Comparison: None Findings: Ankle hardware appears intact. Moderate degenerative change of the tibiotalar articulation. Old avulsion versus unfused apophysis along the medial malleolus No ankle effusion. No radiopaque foreign body. IMPRESSION: Postsurgical and degenerative changes. No acute process. This document has been electronically signed by: Paul Barba MD on 06/25/2024 07:57:46
--- OUTSIDE RECORDS SUMMARY | 2024-06-24 08:33 | XMS_ITS | Data Portability ---
Author Organization [place] - [facility], Allergy Address [address] [address] Care Team Providers Care Mechanical Maintenance Instructor Name Role Phone REMI SEGAL Primary Care Provider Assessment Encounter Date Assessment Date Assessment LastModified by Organization Details LastModified Time 02/15/2024 02/15/2024 Laboratory testing and MRI results reviewed with patient in [...] she should continue to work with her database specialist at [facility] audiology to ensure that her hearing [...] negative, so I will order this test. 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 There do not appear to be any infectious, metabolic, autoimmune, inflammatory or anatomic anomalies that would explain the patient's progressive hearing loss. 4-month interval audiometric testing done today. This shows progression in the hearing loss in the right ear particularly in the high frequencies. Speech discrimination 60% on the right. She should continue to work with her database specialist at [facility] audiology to ensure that her hearing aids are adjusted to match her current level of hearing loss. She has been given a copy of the audiogram and updated medical clearance for binaural amplification. Today we discussed that her hearing loss may continue to progress over time, but is difficult to predict. I did give her some information about cochlear implant technology such that if the hearing loss progresses to the point where she is no longer getting benefit from conventional amplification, it is almost certain that she would be a candidate and get good benefit from this technology. She is very nervous about this, but I gave her reassurance that the surgery is easy to go through with overall great potential results. She is not currently a candidate for this, but may be so in the future. Recommend follow-up audiogram in 6 months. [email or web address] Not available 06/14/2024 10:08:42 Plan of Treatment Reminders Order Date Submit Date Provider Last Modified By Organization Details Last Modified Time Details Appointments Hearing Test 2024 09:00A M Hearing Test Not available Not available Not available Establish ed 10 2024 09:30A M ISHMAEL ZAMAN MD Not available Not available Not available Lab borrelia burgdorfe ri IgG + IgM + total panel, IA, serum 2024 025 CANDI [facility] (Centralized Electronic Ordering - All Locations), Patient Can Go To The Location Of Their Choice, [id number] 02/16/2024 13:16:31 CBC w/ auto diff 2023 024 CANDI [facility] (Centralized Electronic Ordering - All Locations), Patient Can Go To The Location Of Their Choice, 02/02/2024 19:51:40 serology, syphilis 2023 024 [email or web address] [facility] (Centralized Electronic Ordering - All Locations), Patient Can Go To The Location Of Their Choice, 02/05/2024 12:05:00 TSH, serum or plasma 2023 024 CANDI [facility] (Centralized Electronic Ordering - All Locations), Patient Can Go To The Location Of Their Choice, 02/02/2024 19:51:42 IVELISSE + rf (antinucl ear antibodie s + rheumatoi d factor), quantitat ana maría, serum 2023 CANDI [facility] (Centralized Electronic Ordering - All Locations), Patient Can Go To The Location Of Their Choice, [id number] 02/02/2024 19:51:41 C-reactiv e protein, quantitat ana maría, serum or plasma 2023 [email or web address] [facility] (Centralized Electronic Ordering - All Locations), Patient Can Go To The Location Of Their Choice, [id number] 02/05/2024 12:05:00 ESR (erythroc yte sedimenta tion rate), blood 2023 CANDI [facility] (Centralized Electronic Ordering - All Locations), Patient Can Go To The Location Of Their Choice, [id number] 02/02/2024 19:51:43 HbA1c (hemoglob in A1c), blood 2023 CANDI [facility] (Centralized Electronic Ordering - All Locations), Patient Can Go To The Location Of Their Choice, [id number] 02/02/2024 19:51:41 Referral None recorded. Procedures None recorded. Surgeries None recorded. Imaging MRI, brain + internal auditory canal, w/wo contrast - MRI, BRAIN + INTERNAL AUDITORY CANAL, W/WO CONTRAST 2023 [facility] ([facility]), [address] [facility], [place], [address], 02/09/2024 14:28:52 Medication Orders None recorded. Patient TargetsNo targets recorded. Patient InstructionsNo instructions recorded. Reason for Referral None Reported. Results Created Date Observation Date Name Description Value Unit Range Abnormal Flag Note LastModifiedBy Organization Detail LastModifiedTime 01/25/2001/25/2024 CBC WITH DIFFE RENTI AL/PL ATELE T WBC 9.0 x10e3 /uL 3.4-10 .8 normal Not Available [facility] ([facility]) [address] [facility], [place], [address], 02/02/2024 19:51:40 01/25/2001/25/2024 CBC WITH DIFFE RENTI AL/PL ATELE T RBC 4.45 x10e6 /uL 3.77-5 .28 normal Not Available [facility] ([facility]) [address] [place], [address], 02/02/2024 19:51:40 01/25/20 24 01/25/2024 CBC WITH DIFFE RENTI AL/PL ATELE T hemoglobin 14.5 g/dL 11.1-1 5.9 normal Not Available [facility] ([facility]) [address] [place], [address], 02/02/2024 19:51:40 01/25/2001/25/2024 CBC WITH DIFFE RENTI AL/PL ATELE T hematocrit 43.2 % 34.0-4 6.6 normal Not Available [facility] ([facility]) [address] [place], [address], 02/02/2024 19:51:40 01/25/20 24 01/25/2024 CBC WITH DIFFE RENTI AL/PL ATELE T MCV 97 fL 79-97 normal Not Available [facility] ([facility]) [address] [place], [address], 02/02/2024 19:51:40 01/25/20 24 01/25/2024 CBC WITH DIFFE RENTI AL/PL ATELE T MCH 32.6 pg 26.6-3 3.0 normal Not Available [facility] ([facility]) [address] [place], [address], 02/02/2024 19:51:40 01/25/20 24 01/25/2024 CBC WITH DIFFE RENTI AL/PL ATELE T MCHC 33.6 g/dL 31.5-3 5.7 normal Not Available [facility] ([facility]) [address] [place], [address], 02/02/2024 19:51:40 01/25/20 24 01/25/2024 CBC WITH DIFFE RENTI AL/PL ATELE T RDW 12.0 % 11.7-1 5.4 Not Available [facility] ([facility]) [address] [facility], [place], [address], 02/02/2024 19:51:40 01/25/20 24 01/25/2024 CBC WITH DIFFE RENTI AL/PL ATELE T platelets 267 x10e3 /uL 150-45 0 normal Not Available [facility] ([facility]) [address] [facility], [place], [address], 02/02/2024 19:51:40 01/25/20 24 01/25/2024 CBC WITH DIFFE RENTI AL/PL ATELE T neutrophils 72 % not estab. normal Not Available [facility] ([facility]) [address] [facility], [place], [address], 02/02/2024 19:51:40 01/25/20 24 01/25/2024 CBC WITH DIFFE RENTI AL/PL ATELE T lymphs 18 % not estab. normal Not Available [facility] ([facility]) [address] [facility], [place], [address], 02/02/2024 19:51:40 01/25/20 24 01/25/2024 CBC WITH DIFFE RENTI AL/PL ATELE T monocytes 7 % not estab. normal Not Available [facility] ([facility]) [address] [facility], [place], [address], 02/02/2024 19:51:40 01/25/20 24 01/25/2024 CBC WITH DIFFE RENTI AL/PL ATELE T eos 3 % not estab. normal Not Available [facility] ([facility]) [address] [facility], [place], [address], 02/02/2024 19:51:40 01/25/20 24 01/25/2024 CBC WITH DIFFE RENTI AL/PL ATELE T basos 0 % not estab. normal Not Available [facility] ([facility]) [address] [facility], [place], [address], 02/02/2024 19:51:40 01/25/20 24 01/25/2024 CBC WITH DIFFE RENTI AL/PL ATELE T immature cells BOWLING BALL GRADER Not Available [facility] ([facility]) [address] [facility], [place], [address], 02/02/2024 19:51:40 01/25/20 24 01/25/2024 CBC WITH DIFFE RENTI AL/PL ATELE T neutrophils (absolute) 6.4 x10e3 /uL 1.4-7. 0 normal Not Available [facility] ([facility]) [address] [facility], [place], [address], 02/02/2024 19:51:40 01/25/20 24 01/25/2024 CBC WITH DIFFE RENTI AL/PL ATELE T lymphs (absolute) 1.6 x10e3 /uL 0.7-3. 1 normal Not Available [facility] ([facility]) [address] [place], [address], 02/02/2024 19:51:40 01/25/20 24 01/25/2024 CBC WITH DIFFE RENTI AL/PL ATELE T monocytes(ab solute) 0.7 x10e3 /uL 0.1-0. 9 normal Not Available [facility] ([facility]) [address] [place], [address], 02/02/2024 19:51:40 01/25/20 24 01/25/2024 CBC WITH DIFFE RENTI AL/PL ATELE T eos (absolute) 0.3 x10e3 /uL 0.0-0. 4 normal Not Available [facility] ([facility]) [address] [place], [address], 02/02/2024 19:51:40 01/25/20 24 01/25/2024 CBC WITH DIFFE RENTI AL/PL ATELE T baso (absolute) 0.0 x10e3 /uL 0.0-0. 2 normal Not Available [facility] ([facility]) [address] [facility], [place], [address], 02/02/2024 19:51:40 01/25/20 24 01/25/2024 CBC WITH DIFFE RENTI AL/PL ATELE T immature granulocytes 0 % not estab. Not Available [facility] ([facility]) [address] [facility], [place], [address], 02/02/2024 19:51:40 01/25/20 24 01/25/2024 CBC WITH DIFFE RENTI AL/PL ATELE T immature grans (abs) 0.0 x10e3 /uL 0.0-0. 1 Not Available [facility] ([facility]) [address] [facility], [place], [address], 02/02/2024 19:51:40 01/25/20 24 01/25/2024 CBC WITH DIFFE RENTI AL/PL ATELE T NRBC [employer]LING [employer]ER Not Available [facility] ([facility]) [address] [facility], [place], [address], 02/02/2024 19:51:40 01/25/20 24 01/25/2024 CBC WITH DIFFE RENTI AL/PL ATELE T hematology comments: BOWLING BALL GRADER Not Available [facility] ([facility]) [address] [facility], [place], [address], 02/02/2024 19:51:40 01/25/20 24 01/27/2024 A1C W/GLY [...] (ADA) Not Available [facility] [address] [place], [address], 02/02/2024 19:51:41 01/25/20 24 01/27/2024 A1C W/GLY COMAR K(R) REFLE X estimated average glucose 111 mg/dL Not Available [facility] [address] [place], [address], 02/02/2024 19:51:41 01/25/20 24 01/27/2024 A1C W/GLY [...] s. Not Available [facility] [address] [facility], [place], [address], 02/02/2024 19:51:41 01/25/20 24 01/26/2024 IVELISSE+R F QN IVELISSE direct NEGATI VE negati ve Not Available [facility] ([facility]) [address] [facility], [place], [address], 02/02/2024 19:51:41 01/25/20 24 01/26/2024 IVELISSE+R F QN rheumatoid factor (rf) 11.7 IU/mL <14.0 normal Not Available [facility] ([facility]) [address] [facility], [place], [address], 02/02/2024 19:51:41 01/25/20 24 02/02/2024 THYRO ID STIMU LATIN G HORMO NE TSH-icma 1.4 uu/mL Refer ence Range : Non-P regna nt Adult 0.450 -4.50 0 Pregn sotero First Trime ster 0.100 -4.00 0 Secon d Trime ster 0.200 -4.00 0 Third Trime ster 0.300 -4.50 0 Not Available [facility] [address] [facility], [place], [address], 02/02/2024 19:51:42 01/25/20 24 01/26/2024 SYPHI LIS RPR W/REF FANNY RPR NON REACTI VE non reacti ve Not Available [facility] ([facility]) [address] [facility], [place], [address], 02/02/2024 19:51:42 01/25/20 24 01/26/2024 SEDIM ENTAT ION RATE- WESTE RGREN sedimentatio n rate-westerg narendra 9 mm/HR 0-40 normal Not Available [facility] ([facility]) [address] [place], [address], 02/02/2024 19:51:43 01/25/20 24 01/26/2024 C-JAMES CTIVE PROTE IN, QUANT C-reactive protein, quant 5 mg/L 0-10 normal Not Available [facility] ([facility]) [address] [place], [address], 02/02/2024 19:51:43 02/14/19 25 02/16/2024 LYME DISEA [...] recen t infec tion is suspe cted, allyn t davide ng on a new sampl e colle cted in 7 to 14 days is recom lucina d. Not Available [facility] ([facility]) [address] [facility], [place], [address], 02/16/2024 13:16:30 01/25/20 24 audio gram No observ ation record ed. [email or web address] Not Available 2024 11:33:58 02/09/20 24 02/08/2024 MRI, brain + brain stem, w/wo contr ast [facility] Access ion Number : [id number] Patisaima t Name: Kanwal Espinosaa lissette Record Number : [id number] Date of : 1960 Date of Exam: 2023 Referr ing Physic alexia: Mane Zaman re Ear Nose [address] [facility] [place] [address] Exam: MR Brain (C-/C+ ) CPT 33062 Room Descri ption: [facility] Verio 3.0T HISTOR Y: Bilate ral sensor ineura l hearin g loss. TECHNI QUE: Multip lanar multis equenc e MRI of the brain (IAC) was obtain ed before and after the admini strati on of 16 cc of Dotare m. COMPAR MOIRA: No prior studie s are availa ble for compar moira at [facility] . FINDIN [...] cerebe llopon victoriano angle cister n or phd internship al audito ry canal. No abnorm [...] repres ent acute sinusi tis in the [facility] marina kelley Electr onical ly Signed By: Deshawn Greenfield MD [email or web address] [facility] ([facility]) [address] [facility] [address], [place], [address], 02/15/2024 11:33:58 Result Notes None recorded. Problems Name Problem SNOMED Code Status Onset Date Resolution Date Notes Provider Name and Address Organization Details Recorded Time Sensorine ural hearing loss of bilateral ears 874219603 Active 2021 Sensorine ural hearing loss, bilateral ; Note: Date Diagnosed : 11/01/2021 9:20 AM (H90.3) Not Available [facility] 4 02:36:19 Mixed conductiv e and sensorine ural hearing loss, bilateral 175788764 Active 2023 SOLITARIO JOHNSON MD [address] [facility],[place] [address], [place], [address] , [facility] 4 13:40:48 Sensorine ural hearing loss of bilateral ears 582927963 Active 2024 ISHMAEL ZAMAN MD [address] [facility],[place] [address], [place], [address] , [facility] - [facility] 5 14:51:05 Mixed conductiv e and sensorine ural hearing loss, bilateral 546644736 Active 2024 TABBY BARAHONA, HÉCTOR [address] [facility],[place] [address], [place], [address] , [place] - [facility] 09:15:17 Bilateral tinnitus 80046334184 02 Active 2024 ISHMAEL ZAMAN MD [address] [facility],[place] [address], [facility] [place], [address] , [place] - [facility] 10:04:11 Problem Notes None recorded. Procedures Surgical History Date Name Laterality Status Provider Name and Address Organization Details Recorded Time 06/15/19 25 Comp Audio with Tymps - 17446 & 60549 completed TABBY BARAHONA, AUD [address] [facility],[place] [address], [place], [address], [place] - [facility] 06/14/2024 09:15:02 02/14/19 25 Telehealth completed ISHMAEL ZAMAN MD [address] [facility],[place] [address], [place], [address], [place] [facility] 02/15/2024 11:33:49 01/25/20 24 Comp Audio with Tymps - 09947 & 95349 completed HARRY JOYNER, AUD [address] [facility],[place] [address], [place], [address], [place] - [facility] 01/25/2024 12:00:11 section completed Ivelisse Rust [place] [facility] 06/14/2024 09:43:01 total replacement of hip completed Ivelisse Rust [place] [facility] 06/14/2024 09:43:08 Imaging Results Imaging Date Name Status LastModified by Organiz ation Details LastModified Time 01/25/2024 audiogram completed [email or web address] Information no t available 02/15/2024 11:33:58 02/08/2024 MRI, brain + brain stem, w/wo contrast completed [email or web address] [facility] ([facility]) [address] [facility] [address], [place], [address], 02/15/2024 11:33:58 Procedure Notes None recorded. Medical [...] solution for nebulizat ion USE 1 VIAL 3 ML) INHALED VIA NEBULIZE R EVERY 6 HOURS NEEDED FOR SHORTNES S OF BREATH OR WHEEZING . active Not Available Not Available No t Available prednison e 20 mg tablet TAKE 1 TABLET BY MOUTH DAILY. 06/14 completed Not Available Not Available Not Available estradiol 0.01% (0.1 mg/gram) vaginal cream USE 02/12 APPLICAT ORFUL VAGINALL Y EVERY 7 DAYS 01/24 completed Not Available Not Available Not Available albuterol sulfate HFA 90 mcg/actua tion aerosol inhaler INHALE TWO PUFFS BY MOUTH FOUR TIMES A DAY NEEDED FOR SHORTNES S OF BREATH OR WHEEZING active Not Available Not Available No t Available norethind nelson (contrace ptive) 0.35 mg tablet 01/24 completed Medicati on ID: [id number] B rand Name: norethin drone (contrac eptive) Send Method: E-Prescr ibed Sub s Allowed: subs OK Medic ationGen ericName : norethin drone (contrac eptive) Not Available Not Available Not Available Vitals Date Recorded Body height Body mass index (BMI) Body weight Provider Name and Address Organization Details Last Updated DateTime 01/25/2024 160.02 cm 31 kg/m2 59463.66 g Osiris Baltazar [place] - [facility] 01/25/2024 11:18:48 Date Recorded Body height Provider Name an d Address Organization Details Last Updated DateTime 02/15/2024 160.02 cm ISHMAEL ZAMAN MD [address] [place] [address], [address], [facility] - [facility] 02/15/2024 11:32:21 Social History None recorded. Functional Status None recorded. Mental Status None recorded. Family History Nothing Reported. Medical History No medical history recorded. Gynecological HistoryNo gynecological history recorded. Obstetrics History GPAL:G 0 P 0 0 0 0 Past Encounters Encounter ID Performer Location Encounter Start Date Encounter Closed Date Diagnosis/Indication Diagnosis SNOMED-CT Code Diagnosis ICD10 Code Diagnosis Note [id number] SOLITARIO JOHNSON MD [facility] [address] [place] [address] 11/02/2023 13:02:04 11/02/2023 13:55:29 Mixed conductive and sensorineural hearing loss, bilateral 129611880 H90.6 [id number] ISHMAEL ZAMAN MD [facility] [address] [place] [address] 01/25/2024 11:07:08 01/25/2024 12:32:28 Sensorineural hearing loss of bilateral ears 422597775 H90.3 Audiometri c testing was repeated today [...] to bring to her audiologis t at [facility] audiology to ensure that her hearing [...] . Family his tory of hearing loss 043675665 Z82.2 [id number] HÉCTOR SCOTT [facility] [address] [place] [address] 01/25/2024 11:59:19 01/26/2024 07:44:56 Mixed conductive and sensorineural hearing loss, bilateral 711087387 H90.6 Right Ear:Modera tely-sever e through 1K Hz rising to a mild SNHL through 3K Hz sloping to a moderate HF HL with excellent speech discrimina tion.Type C tympanogra m.Left Ear:Severe rising to moderate MHL with excellent speech discrimina tion.Type C tympanogra m. Sensorineu ral hearing loss of bilateral ears 634385214 H90.3 [id number] ISHMAEL ZAMAN MD [facility] [address] [address] 02/15/2024 11:32:04 02/15/2024 11:49:32 Sensorineural hearing loss of bilateral ears 445837907 H90.3 Family his tory of hearing loss 233662265 Z82.2 [id number] ISHMAEL ZAMAN MD [facility] [address] [address] 06/14/2024 08:53:05 06/14/2024 10:22:07 Sensorineural hearing loss of bilateral ears 281926922 H90.3 Family his tory of hearing loss 636927016 Z82.2 Bilateral tinnitus 20536 45285 102 H93.13 [id number] HÉCTOR TRISTAN [facility] [address] [address] 06/14/2024 09:14:50 06/17/2024 01:53:26 Mixed conductive and sensorineural hearing loss, bilateral 469655549 H90.6 Audiologic al evaluation results: Right ear: {{Normal N ormal through 2 kHz Mild M oderate Mo derately-s evere* Sev ere Profou nd}} {{hearing hearing. s loping to a mild slopi ng to a moderate s loping to moderately severe slo ping to severe slo ping to profound f lat* high frequency low frequency mid frequency cookie bite freed curve}} {{with sen sorineural hearing loss with condu ctive hearing loss with mixed hearing loss with*}} {{excellen t good tung r poor* no measurable }} word recognitio n. Left ear: {{Normal N ormal through 2 kHz Mild M oderate* M oderately- severe Sev ere Profou nd}} {{hearing hearing. s loping to a mild slopi ng to a moderate s loping to moderately severe slo ping to severe slo ping to profound f lat high frequency low frequency mid frequency cookie bite freed curve ring to mild sloping to severe#}} {{with sen sorineural hearing loss with condu ctive hearing loss with mixed hearing loss with*}} {{excellen t* good fa ir poor no measurable }} word recognitio n. Tympanomet ry: Right Ear:{{Type A* Type A with rounded peak Type A with double peak Type As Type As with rounded peak Type Ad Type C Type C, shallow & rounded peak Type B Type B with large volume Cou ld not maintain a hermetic seal}} Left Ear:{{Type A* Type A with rounded peak Type A with double peak Type As Type As with rounded peak Type Ad Type C Type C, shallow & rounded peak Type B Type B with large volume Cou ld not maintain a hermetic seal}} Health Concerns Section Related Observation LastModified by Organization Detai ls LastModified Time None Recorded Concern Status LastModified by Organization Details LastModified Time None Recorded Advance Directives Directive None Recorded Payers Insurance Date Sequence Insurance Name Policy Number Policy Gutierrez Covered Member ID Gutierrez Member ID Guarantor Name 06/13/2024 1 [place] Kanwal Jimenez [id number] Kanwal Jimenez 06/13/2024 2 [place] [id number] Kanwal Jimenez [id number] Kanwal Jimenez Notes Date Note Type Note Provider Name and Address Organization Details Recorded Time 01/25/2024 text/html Patient who saw Dr. Johnson [...] October 2023 with updated audiometric testing from [facility] audiology showing a significant change in the right sensorineural thresholds, with significant worsening in speech discrimination. Patient reports maternal family history of childhood onset hearing loss, her mother had surgery on her ear but it did not help. Patient's brother has hearing loss as well which started in his 50s.Patient reports that she has since obtained binaural amplification from [facility] audiology. Overall she seems to be doing well with them, though she feels that on some days her general hearing is not as good as other days. She does not notice a unilateral fluctuation in hearing, only a general sense that her hearing has good days and bad days. No dizziness or balance disturbance at all. ISHMAEL ZAMAN MD [address] [facility],[place] [address], [place], [address], [facility] 01/25/2024 12:36:25 02/15/2024 text/html Patient with bilateral, [...] and second degree relatives. ISHMAEL ZAMAN MD [address] [facility],[place] [address], [place], [address], [facility] 02/15/2024 11:42:20 06/14/2024 text/html 64-year-old femjamaica le with apparently progressive sensorineural hearing loss. MRI and laboratory testing negative. Patient does have a very strong family history of early onset and progressive sensorineural hearing loss in 6 or 7 of her first and second-degree relatives. Using binaural amplification managed through [facility] audiology. She comes 4-month follow-up audiogram to assess for progression. ISHMAEL ZAMAN MD [address] [facility] [place],[facility], [place], [address], [facility] 06/14/2024 10:08:56 OBGyn Episode No OBEpisode recorded.
== END 2024-06-24 08:20 | disposition home or self-care (01) ==
LOC: HO.XRAY 08:19
PROVIDERS: PCP Physician Assistant; Visit Provider Physician Assistant
DX: M25.571 Pain in right ankle and joints of right foot (principal); M25.561 Pain in right knee
CPT/HCPCS: 73562; 73600

== ENCOUNTER → 2024-06-24 08:22 | Outpatient (BNV) | payer MEDICARE, SELFPAY | PROVIDERS: PCP Physician Assistant; Visit Provider Radiology Vascular & Interventional Radiology | DX: M25.561 Pain in right knee (principal); M25.571 Pain in right ankle and joints of right foot | CPT/HCPCS: 73562; 73600 ==

== ENCOUNTER 2024-07-01 08:34 | Outpatient (REF) | payer SELFPAY ==
--- OUTSIDE RECORDS SUMMARY | 2024-07-01 08:45 | XMS_ITS | Data Portability ---
Author Organization [place] - [facility], Allergy Address [address] [address] Care Team Providers Care Engineering Designer Name Role Phone REMI SEGAL Primary Care [...] she should continue to work with her printed circuit board reworker at [facility] audiology to ensure that her hearing [...] negative, so I will order this test. Not available 02/15/2024 11:38:16 06/14/2024 06/14/2024 Patient [...] She should continue to work with her printed circuit board reworker at [facility] audiology to ensure that her hearing [...] future. Recommend follow-up audiogram in 6 months. [email or web address] Not available 06/14/2024 10:08:42 Plan of Treatment [...] Go To The Location Of Their Choice, [id number] 02/16/2024 13:16:31 CBC w/ auto diff 2023 [...] Go To The Location Of Their Choice, [address] 02/02/2024 19:51:41 C-reactiv e protein, quantitat ana maría, serum or plasma 2023 [email or web address] [facility] (Centralized Electronic Ordering - All Locations), Patient Can Go To The Location Of Their Choice, [address] 02/05/2024 12:05:00 ESR (erythroc yte sedimenta tion rate), blood 2023 CANDI [facility] (Centralized Electronic Ordering - All Locations), Patient Can Go To The Location Of Their Choice, [address] 02/02/2024 19:51:43 HbA1c (hemoglob in A1c), blood 2023 ACNDI [facility] (Centralized Electronic Ordering - All Locations), Patient Can Go To The Location Of Their Choice, [id number] 02/02/2024 19:51:41 Referral None recorded. Procedures None recorded. Surgeries None recorded. Imaging MRI, brain + internal auditory canal, w/wo contrast - MRI, BRAIN + INTERNAL AUDITORY CANAL, W/WO CONTRAST [address] [facility] ([facility]), [address] [facility] [place], [place], [address], 02/09/2024 14:28:52 Medication Orders None recorded. Patient TargetsNo targets recorded. Patient InstructionsNo instructions recorded. Reason for Referral None Reported. Results Created Date Observation Date Name Description Value Unit Range Abnormal Flag Note LastModifiedBy Organization Detail LastModifiedTime 01/25/2001/25/2024 CBC WITH DIFFE RENTI AL/PL ATELE T WBC 9.0 x10e3 /uL 3.4-10 .8 normal Not Available [facility] ([facility]) [address] [facility], [place], [address], 02/02/2024 19:51:40 01/25/2001/25/2024 CBC WITH DIFFE RENTI AL/PL ATELE T RBC 4.45 x10e6 /uL 3.77-5 .28 normal Not Available [facility] ([facility]) [address] [place], [address], 02/02/2024 19:51:40 01/25/20 24 01/25/2024 CBC WITH DIFFE RENTI AL/PL ATELE T hemoglobin 14.5 g/dL 11.1-1 5.9 normal Not Available [facility] ([facility]) [address] [place], [address], 02/02/2024 19:51:40 01/25/2001/25/2024 CBC WITH DIFFE RENTI AL/PL ATELE T hematocrit 43.2 % 34.0-4 6.6 normal Not Available [facility] ([facility]) [address] [place], [address], 02/02/2024 19:51:40 01/25/20 24 01/25/2024 CBC WITH DIFFE RENTI AL/PL ATELE T MCV 97 fL 79-97 normal Not Available [facility] ([facility]) [address] [place], [address], 02/02/2024 19:51:40 01/25/20 24 01/25/2024 CBC WITH DIFFE RENTI AL/PL ATELE T MCH 32.6 pg 26.6-3 3.0 normal Not Available [facility] ([facility]) [address] [place], [address], 02/02/2024 19:51:40 01/25/20 24 01/25/2024 CBC WITH DIFFE RENTI AL/PL ATELE T MCHC 33.6 g/dL 31.5-3 5.7 normal Not Available [facility] ([facility]) [address] [place], [address], 02/02/2024 19:51:40 01/25/20 24 01/25/2024 CBC WITH DIFFE RENTI AL/PL ATELE T RDW 12.0 % 11.7-1 5.4 Not Available [facility] ([facility]) [address] [facility], [place], [address], 02/02/2024 19:51:40 01/25/20 24 01/25/2024 CBC WITH DIFFE RENTI AL/PL ATELE T platelets 267 x10e3 /uL 150-45 0 normal Not Available [facility] ([facility]) [address] [facility], [place], [address], 02/02/2024 19:51:40 01/25/20 24 01/25/2024 CBC WITH DIFFE RENTI AL/PL ATELE T neutrophils 72 % not estab. normal Not Available [facility] ([facility]) [address] [facility], [place], [address], 02/02/2024 19:51:40 01/25/20 24 01/25/2024 CBC WITH DIFFE RENTI AL/PL ATELE T lymphs 18 % not estab. normal Not Available [facility] ([facility]) [address] [facility], [place], [address], 02/02/2024 19:51:40 01/25/20 24 01/25/2024 CBC WITH DIFFE RENTI AL/PL ATELE T monocytes 7 % not estab. normal Not Available [facility] ([facility]) [address] [facility], [place], [address], 02/02/2024 19:51:40 01/25/20 24 01/25/2024 CBC WITH DIFFE RENTI AL/PL ATELE T eos 3 % not estab. normal Not Available [facility] ([facility]) [address] [facility], [place], [address], 02/02/2024 19:51:40 01/25/20 24 01/25/2024 CBC WITH DIFFE RENTI AL/PL ATELE T basos 0 % not estab. normal Not Available [facility] ([facility]) [address] [facility], [place], [address], 02/02/2024 19:51:40 01/25/20 24 01/25/2024 CBC WITH DIFFE RENTI AL/PL ATELE T immature cells GEAR MILLING MACHINE SET UP OPERATOR Not Available [facility] ([facility]) [address] [facility], [place], [address], 02/02/2024 19:51:40 01/25/20 24 01/25/2024 CBC WITH DIFFE RENTI AL/PL ATELE T neutrophils (absolute) 6.4 x10e3 /uL 1.4-7. 0 normal Not Available [facility] ([facility]) [address] [facility], [place], [address], 02/02/2024 19:51:40 01/25/20 24 01/25/2024 CBC WITH DIFFE RENTI AL/PL ATELE T lymphs (absolute) 1.6 x10e3 /uL 0.7-3. 1 normal Not Available [facility] ([facility]) [address] [place], [address], 02/02/2024 19:51:40 01/25/20 24 01/25/2024 CBC WITH DIFFE RENTI AL/PL ATELE T monocytes(ab solute) 0.7 x10e3 /uL 0.1-0. 9 normal Not Available [facility] ([facility]) [address] [place], [address], 02/02/2024 19:51:40 01/25/20 24 01/25/2024 CBC WITH DIFFE RENTI AL/PL ATELE T eos (absolute) 0.3 x10e3 /uL 0.0-0. 4 normal Not Available [facility] ([facility]) [address] [place], [address], 02/02/2024 19:51:40 01/25/20 24 01/25/2024 CBC WITH DIFFE RENTI AL/PL ATELE T baso (absolute) 0.0 x10e3 /uL 0.0-0. 2 normal Not Available [facility] ([facility]) [address] [facility], [place], [address], 02/02/2024 19:51:40 01/25/20 24 01/25/2024 CBC WITH DIFFE RENTI AL/PL ATELE T immature granulocytes 0 % not estab. Not Available [facility] ([facility]) [address] [facility], [place], [address], 02/02/2024 19:51:40 01/25/20 24 01/25/2024 CBC WITH DIFFE RENTI AL/PL ATELE T immature grans (abs) 0.0 x10e3 /uL 0.0-0. 1 Not Available [facility] ([facility]) [address] [facility], [place], [address], 02/02/2024 19:51:40 01/25/20 24 01/25/2024 CBC WITH DIFFE RENTI AL/PL ATELE T NRBC GEAR MILLING MACHINE SET UP OPERATOR Not Available [facility] ([facility]) [address] [facility], [place], [address], 02/02/2024 19:51:40 01/25/20 24 01/25/2024 CBC WITH DIFFE RENTI AL/PL ATELE T hematology comments: GEAR MILLING MACHINE SET UP OPERATOR Not Available [facility] ([facility]) [address] [facility], [place], [address], 02/02/2024 19:51:40 01/25/20 24 01/27/2024 A1C W/GLY COMAR K(R) REFLE X Hb A1C diabetic assessment 5.5 %Hb Note: A refle x test was order ed on this speci men. If A1c resul ts are betwe en a value of 6.0 to 8.0 (incl uding 6.0 and 8.0), Glyco Sla testi ng is perfo rmed. Glyco Sal [...] (ADA) Not Available [facility] [address] [place], [address], 02/02/2024 19:51:41 01/25/20 24 01/27/2024 A1C W/GLY COMAR K(R) REFLE X estimated average glucose 111 mg/dL Not Available [facility] [address] [place], [address], 02/02/2024 19:51:41 01/25/20 24 01/27/2024 A1C W/GLY [...] s. Not Available [facility] [address] [facility], [place], [address], 02/02/2024 19:51:41 01/25/20 24 01/26/2024 IVELISSE+R F QN IVELISSE direct NEGATI VE negati ve Not Available [facility] ([facility]) [address] [facility], [place], [address], 02/02/2024 19:51:41 01/25/20 24 01/26/2024 IVELISSE+R F QN rheumatoid factor (rf) 11.7 IU/mL <14.0 normal Not Available [facility] ([facility]) [address] [facility], [place], [address], 02/02/2024 19:51:41 01/25/20 24 02/02/2024 THYRO ID STIMU LATIN G HORMO NE TSH-icma 1.4 uu/mL Refer ence Range : Non-P regna nt Adult 0.450 -4.50 0 Pregn sotero First Trime ster 0.100 -4.00 0 Secon d Trime ster 0.200 -4.00 0 Third Trime ster 0.300 -4.50 0 Not Available [facility] [address] [facility], [place], [address], 02/02/2024 19:51:42 01/25/20 24 01/26/2024 SYPHI LIS RPR W/REF FANNY RPR NON REACTI VE non reacti ve Not Available [facility] ([facility]) [address] [facility], [place], [address], 02/02/2024 19:51:42 01/25/20 24 01/26/2024 SEDIM ENTAT ION RATE- WESTE RGREN sedimentatio n rate-westerg narendra 9 mm/HR 0-40 normal Not Available [facility] ([facility]) [address] [place], [address], 02/02/2024 19:51:43 01/25/20 24 01/26/2024 C-JAMES CTIVE PROTE IN, QUANT C-reactive protein, quant 5 mg/L 0-10 normal Not Available [facility] ([facility]) [address] [place], [address], 02/02/2024 19:51:43 02/14/19 25 02/16/2024 LYME DISEA [...] is recom lucina d. Not Available [facility] ([facility]) [address] [facility], [place], [address], 02/16/2024 13:16:30 01/25/20 24 audio gram No observ ation record ed. [email or web address] Not Available 2024 11:33:58 02/09/20 24 02/08/2024 MRI, brain + brain stem, w/wo contr ast [facility] MRI- [facility] Access ion Number : [id number] Patisaima t Name: Kanwal Espinosaa lissette Record Number : [id number] Date of : 1960 Date of Exam: 2023 Referr ing Physic alexia: [facility] re [facility] [address] [place] [address] Exam: MR Brain (C-/C+ ) CPT 82406 Room Descri ption: [facility] Verio 3.0T HISTOR Y: Bilate ral sensor ineura l hearin g loss. TECHNI QUE: Multip lanar multis equenc e MRI of the brain (IAC) was obtain ed before and after the admini strati on of 16 cc of Dotare m. COMPAR MOIRA: No prior studie s are availa ble for compar moira at [facility] . FINDIN [...] cerebe llopon victoriano angle cister n or internet cafe manager al audito ry canal. No abnorm al [...] repres ent acute sinusi tis in the [facility] marina kelley Electr onical ly Signed By: Deshawn Greenfield MD [facility] ([facility]) [address] [facility] [place], [place], [address], 02/15/2024 11:33:58 Result Notes None recorded. Problems Name Problem SNOMED Code Status Onset Date Resolution Date Notes Provider Name and Address Organization Details Recorded Time Sensorine ural hearing loss of bilateral ears 924757490 Active 2021 Sensorine ural hearing loss, bilateral ; Note: Date Diagnosed : 11/01/2021 9:20 AM (H90.3) Not Available [facility] 4 02:36:19 Mixed conductiv e and sensorine ural hearing loss, bilateral 840191047 Active 2023 SOLITARIO JOHNSON MD [address] [facility],[place] [address], [place], [address] , [facility] 4 13:40:48 Sensorine ural hearing loss of bilateral ears 894834632 Active 2024 ISHMAEL ZAMAN MD [address] [facility],[place] [address], [place], [address] , [facility] - [facility] 5 14:51:05 Mixed conductiv e and sensorine ural hearing loss, bilateral 016982882 Active 2024 TABBY BARAHONA, HÉCTOR [address] [facility],[place] [address], [place], [address] , [place] - [facility] 09:15:17 Bilateral tinnitus 94786349620 02 Active 2024 ISHMAEL ZAMAN MD [address] [facility],[place] [address], [facility] [place], [address] , [place] - [facility] 10:04:11 Problem Notes None recorded. Procedures Surgical History Date Name Laterality Status Provider Name and Address Organization Details Recorded Time 06/15/19 25 Comp Audio with Tymps - 54871 & 19575 completed TABBY BARAHONA, AUD [address] [facility],[place] [address], [place], [address], [place] - [facility] 06/14/2024 09:15:02 02/14/19 25 Telehealth completed ISHMAEL ZAMAN MD [address] [facility],[place] [address], [place], [address], [place] - [facility] 02/15/2024 11:33:49 01/25/20 24 Comp Audio with Tymps - 02562 & 25554 completed HARRY JOYNER, AUD [address] [facility],[place] [address], [place], [address], [place] - [facility] 01/25/2024 12:00:11 section completed Ivelisse Rust [place] - [facility] 06/14/2024 09:43:01 total replacement of hip completed Ivelisse Rust [place] - [facility] 06/14/2024 09:43:08 Imaging Results Imaging Date Name Status LastModified by Organiz ation Details LastModified Time 01/25/2024 audiogram completed [email or web address] Information no t available 02/15/2024 11:33:58 02/08/2024 MRI, brain + brain stem, w/wo contrast completed [email or web address] [facility] ([facility]) [address] [facility] [place], [place], [address], 02/15/2024 11:33:58 Procedure Notes None recorded. Medical [...] mg tablet 01/24 completed Medicati on ID: [id number] B rand Name: norethin drone (contrac eptive) Send Method: E-Prescr ibed Sub s Allowed: subs OK Medic ationGen ericName : norethin drone (contrac eptive) Not Available Not Available Not Available Vitals Date Recorded Body height Body mass index (BMI) Body weight Provider Name and Address Organization Details Last Updated DateTime 01/25/2024 160.02 cm 31 kg/m2 87903.66 g Osiris Baltazar [place] - [facility] 01/25/2024 11:18:48 Date Recorded Body height Provider Name an d Address Organization Details Last Updated DateTime 02/15/2024 160.02 cm ISHMAEL ZAMAN MD [address] [place] [address], [address], [facility] - [facility] 02/15/2024 11:32:21 Social History None recorded. Functional Status None recorded. Mental Status None recorded. Family History Nothing Reported. Medical History No medical history recorded. Gynecological HistoryNo gynecological history recorded. Obstetrics History GPAL:G 0 P 0 0 0 0 Past Encounters Encounter ID Performer Location Encounter Start Date Encounter Closed Date Diagnosis/Indication Diagnosis SNOMED-CT Code Diagnosis ICD10 Code Diagnosis Note [id number] SOLITARIO JOHNSON MD [facility] [address] [place] [address] 11/02/2023 13:02:04 11/02/2023 13:55:29 Mixed conductive and sensorineural hearing loss, bilateral 432209880 H90.6 [id number] ISHMAEL ZAMAN MD [facility] [address] [place] [address] 01/25/2024 11:07:08 01/25/2024 12:32:28 Sensorineural hearing loss of bilateral ears 755133764 H90.3 Audiometri c testing was repeated today [...] to bring to her audiologis t at [facility] audiology to ensure that her hearing [...] . Family his tory of hearing loss 002338000 Z82.2 [id number] HÉCTOR SCOTT [facility] [address] [place] [address] 01/25/2024 11:59:19 01/26/2024 07:44:56 Mixed conductive and sensorineural hearing loss, bilateral 064486819 H90.6 Right Ear:Modera tely-sever e through 1K Hz rising to a mild SNHL through 3K Hz sloping to a moderate HF HL with excellent speech discrimina tion.Type C tympanogra m.Left Ear:Severe rising to moderate MHL with excellent speech discrimina tion.Type C tympanogra m. Sensorineu ral hearing loss of bilateral ears 658973711 H90.3 [id number] ISHMAEL ZAMAN MD [facility] [address] [address] 02/15/2024 11:32:04 02/15/2024 11:49:32 Sensorineural hearing loss of bilateral ears 179525539 H90.3 Family his tory of hearing loss 217903126 Z82.2 [id number] ISHMAEL ZAMAN MD [facility] [address] [address] 06/14/2024 08:53:05 06/14/2024 10:22:07 Sensorineural hearing loss of bilateral ears 477723797 H90.3 Family his tory of hearing loss 753507084 Z82.2 Bilateral tinnitus 61439 38988 102 H93.13 [id number] HÉCTOR TRISTAN [facility] [address] [address] 06/14/2024 09:14:50 06/17/2024 01:53:26 Mixed conductive and sensorineural hearing loss, bilateral 555010110 H90.6 Audiologic al evaluation results: Right ear: [...] [place]IC[place] B[place] Kanwal Jimenez [id number] Kanwal Jimenez 06/13/2024 2 [place] [id number] Kanwal Jimenez [id number] Kanwal Jimenez Notes Date Note Type [...] October 2023 with updated audiometric testing from [facility] audiology showing a significant change in the right sensorineural thresholds, with significant worsening in speech discrimination. Patient reports maternal family history of childhood onset hearing loss, her mother had surgery on her ear but it did not help. Patient's brother has hearing loss as well which started in his 50s.Patient reports that she has since obtained binaural amplification from [facility] audiology. Overall she seems to be doing well with them, though she feels that on some days her general hearing is not as good as other days. She does not notice a unilateral fluctuation in hearing, only a general sense that her hearing has good days and bad days. No dizziness or balance disturbance at all. ISHMAEL ZAMAN MD [address] [facility],[place] [address], [place], [address], [facility] 01/25/2024 12:36:25 02/15/2024 text/html Patient with [...] second degree relatives. ISHMAEL ZAMAN MD [address] [facility],[place] [address], [place], [address], [facility] 02/15/2024 11:42:20 06/14/2024 text/html 64-year-old femjamaica le with apparently progressive sensorineural hearing loss. MRI and laboratory testing negative. Patient does have a very strong family history of early onset and progressive sensorineural hearing loss in 6 or 7 of her first and second-degree relatives. Using binaural amplification managed through [facility] audiology. She comes 4-month follow-up audiogram to assess for progression. ISHMAEL ZAMAN MD [address] [facility] [address], [place], [address], [facility] 06/14/2024 10:08:56 OBGyn Episode No OBEpisode recorded.
--- NOTE | 2024-07-01 09:49 | MHC.AU.HA3 ---
Hearing Instrument Follow-Up- Binaural Date of Visit: 07/01/24 Right Ear: Gilbert, Model, Color, Serial Number: Monserrat Soria I 70 R, bayron boyle S#[id number] Motorcycle Designer Repair Warranty: 01/01/2027 Motorcycle Designer Loss and Damage Warranty: 01/01/2027 [facility] Service Plan: n/a Battery Size: Rechargeable Lan Specialist/Slim Tube: 1M [place]old/Dome/CShell/SlimTip:silicone skeleton S#[id number] Warranty 05/04/2024 Type of Wax Guard: Cerustop Dispensed By: [facility] Date of Fittin12/09/2023 Left Ear: Gilbert, Model, Color, Serial Number: Monserrat Soria I 70 Rjimi S#[id number] Motorcycle Designer Repair Warranty: 01/01/2027 Motorcycle Designer Loss and Damage Warranty: 01/01/2027 [facility] Service Plan: n/a Battery Size: Rechargeable Lan Specialist/Slim Tube: 2 M Earmold/Dome/CShell/SlimTip: silicone skeleton S#[id number] Warranty 05/04/2024 Type of Wax Guard: Cerustop Dispensed By: [facility] Date of Fittin12/09/2023 Follow-Up Summary: Kanwal arrived for adjustment noting recent audiogram at ENT showed significant decrease in hearing Ad, however she was unable to find her copy of the audiogram to bring today. ENT has not faxed us a copy. Kanwal was attempting to reach ENT this AM but has been unable to get through. Recommended postponing adjustment until audiogram can be viewed in light of reported significant change. Briefly discussed CIs as Kanwal noted Dr. Rosario has suggested she is a candidate. Recommended CI evaluation could be beneficial and give her an opportunity to learn more about the process. Recommendations: Recommendations: Return for adjustment with updated hearing test copy. Diagnosis Code(s): Primary Diagnosis: H90.3 Bilateral Sensorineural Hearing Loss Signature: Provider: Lion Aguilar, [facility] [place]
== END 2024-07-01 08:35 | disposition home or self-care (01) ==
LOC: HO.HAP 08:34
PROVIDERS: Visit Provider Internal Medicine
DX: Z13.89 Encounter for screening for other disorder (principal)

== ENCOUNTER 2024-07-22 09:05 | Outpatient (REF) | payer SELFPAY ==
--- OUTSIDE RECORDS SUMMARY | 2024-07-22 09:27 | XMS_ITS | Data Portability ---
Author Organization [place] - [facility], Allergy Address [address] [address] Care Team Providers Care Combat Systems Operator Name Role Phone REMI SEGAL Primary Care [...] she should continue to work with her smog technician at [facility] audiology to ensure that her hearing [...] negative, so I will order this test. [email or web address] Not available 02/15/2024 11:38:16 06/14/2024 06/14/2024 Patient [...] She should continue to work with her smog technician at [facility] audiology to ensure that her hearing [...] future. Recommend follow-up audiogram in 6 months. [email or web address] Not available 06/14/2024 10:08:42 Plan of Treatment Reminders Order Date Submit Date Provider Last Modified By Organization Details Last Modified Time Details Appointments Hearing Test 2024 09:00A M Hearing Test Not available Not available Not available Establish ed 10 2024 09:30A M MICAH ZMAAN MD Not available Not available Not available Lab borrelia burgdorfe ri IgG + IgM + total panel, IA, serum 2024 025 CANDI [facility] (Centralized Electronic Ordering - All Locations), Patient Can Go To The Location Of Their Choice, [id number] 02/16/2024 13:16:31 CBC w/ auto diff 2023 [...] Go To The Location Of Their Choice, [id number] 02/02/2024 19:51:41 C-reactiv e protein, quantitat ana maría, serum or plasma 2023 [email or web address] [facility] (Centralized Electronic Ordering - All Locations), Patient Can Go To The Location Of Their Choice, [address] 02/05/2024 12:05:00 ESR (erythroc yte sedimenta tion rate), blood 2023 CANDI [facility] (Centralized Electronic Ordering - All Locations), Patient Can Go To The Location Of Their Choice, [id number] 02/02/2024 19:51:43 HbA1c (hemoglob in A1c), blood 2023 CANDI [facility] (Centralized Electronic Ordering - All Locations), Patient Can Go To The Location Of Their Choice, [id number] 02/02/2024 19:51:41 Referral None recorded. Procedures None recorded. Surgeries None recorded. Imaging MRI, brain + internal auditory canal, w/wo contrast - MRI, BRAIN + INTERNAL AUDITORY CANAL, W/WO CONTRAST 2023 [facility] ([facility]), [address] [facility], [place], [address], 02/09/2024 14:28:52 Medication Orders None recorded. Patient TargetsNo targets recorded. Patient InstructionsNo instructions recorded. Reason for Referral None Reported. Results Created Date Observation Date Name Description Value Unit Range Abnormal Flag Note LastModifiedBy Organization Detail LastModifiedTime 01/25/2001/25/2024 CBC WITH DIFFE RENTI AL/PL ATELE T WBC 9.0 x10e3 /uL 3.4-10 .8 normal Not Available [facility] ([facility]) [address] [facility], [place], [address], 02/02/2024 19:51:40 01/25/2001/25/2024 CBC WITH DIFFE RENTI AL/PL ATELE T RBC 4.45 x10e6 /uL 3.77-5 .28 normal Not Available [facility] ([facility]) [address] [place], [address], 02/02/2024 19:51:40 01/25/20 24 01/25/2024 CBC WITH DIFFE RENTI AL/PL ATELE T hemoglobin 14.5 g/dL 11.1-1 5.9 normal Not Available [facility] ([facility]) [address] [place], [address], 02/02/2024 19:51:40 01/25/2001/25/2024 CBC WITH DIFFE RENTI AL/PL ATELE T hematocrit 43.2 % 34.0-4 6.6 normal Not Available [facility] ([facility]) [address] [place], [address], 02/02/2024 19:51:40 01/25/20 24 01/25/2024 CBC WITH DIFFE RENTI AL/PL ATELE T MCV 97 fL 79-97 normal Not Available [facility] ([facility]) [address] [place], [address], 02/02/2024 19:51:40 01/25/20 24 01/25/2024 CBC WITH DIFFE RENTI AL/PL ATELE T MCH 32.6 pg 26.6-3 3.0 normal Not Available [facility] ([facility]) [address] [place], [address], 02/02/2024 19:51:40 01/25/20 24 01/25/2024 CBC WITH DIFFE RENTI AL/PL ATELE T MCHC 33.6 g/dL 31.5-3 5.7 normal Not Available [facility] ([facility]) [address] [place], [address], 02/02/2024 19:51:40 01/25/20 24 01/25/2024 CBC WITH DIFFE RENTI AL/PL ATELE T RDW 12.0 % 11.7-1 5.4 Not Available [facility] ([facility]) [address] [facility], [place], [address], 02/02/2024 19:51:40 01/25/20 24 01/25/2024 CBC WITH DIFFE RENTI AL/PL ATELE T platelets 267 x10e3 /uL 150-45 0 normal Not Available [facility] ([facility]) [address] [facility], [place], [address], 02/02/2024 19:51:40 01/25/20 24 01/25/2024 CBC WITH DIFFE RENTI AL/PL ATELE T neutrophils 72 % not estab. normal Not Available [facility] ([facility]) [address] [facility], [place], [address], 02/02/2024 19:51:40 01/25/20 24 01/25/2024 CBC WITH DIFFE RENTI AL/PL ATELE T lymphs 18 % not estab. normal Not Available [facility] ([facility]) [address] [facility], [place], [address], 02/02/2024 19:51:40 01/25/20 24 01/25/2024 CBC WITH DIFFE RENTI AL/PL ATELE T monocytes 7 % not estab. normal Not Available [facility] ([facility]) [address] [facility], [place], [address], 02/02/2024 19:51:40 01/25/20 24 01/25/2024 CBC WITH DIFFE RENTI AL/PL ATELE T eos 3 % not estab. normal Not Available [facility] ([facility]) [address] [facility], [place], [address], 02/02/2024 19:51:40 01/25/20 24 01/25/2024 CBC WITH DIFFE RENTI AL/PL ATELE T basos 0 % not estab. normal Not Available [facility] ([facility]) [address] [facility], [place], [address], 02/02/2024 19:51:40 01/25/20 24 01/25/2024 CBC WITH DIFFE RENTI AL/PL ATELE T immature cells REGIONAL AIRLINE PILOT Not Available [facility] ([facility]) [address] [facility], [place], [address], 02/02/2024 19:51:40 01/25/20 24 01/25/2024 CBC WITH DIFFE RENTI AL/PL ATELE T neutrophils (absolute) 6.4 x10e3 /uL 1.4-7. 0 normal Not Available [facility] ([facility]) [address] [facility], [place], [address], 02/02/2024 19:51:40 01/25/20 24 01/25/2024 CBC WITH DIFFE RENTI AL/PL ATELE T lymphs (absolute) 1.6 x10e3 /uL 0.7-3. 1 normal Not Available [facility] ([facility]) [address] [place], [address], 02/02/2024 19:51:40 01/25/20 24 01/25/2024 CBC WITH DIFFE RENTI AL/PL ATELE T monocytes(ab solute) 0.7 x10e3 /uL 0.1-0. 9 normal Not Available [facility] ([facility]) [address] [place], [address], 02/02/2024 19:51:40 01/25/20 24 01/25/2024 CBC WITH DIFFE RENTI AL/PL ATELE T eos (absolute) 0.3 x10e3 /uL 0.0-0. 4 normal Not Available [facility] ([facility]) [address] [place], [address], 02/02/2024 19:51:40 01/25/20 24 01/25/2024 CBC WITH DIFFE RENTI AL/PL ATELE T baso (absolute) 0.0 x10e3 /uL 0.0-0. 2 normal Not Available [facility] ([facility]) [address] [facility], [place], [address], 02/02/2024 19:51:40 01/25/20 24 01/25/2024 CBC WITH DIFFE RENTI AL/PL ATELE T immature granulocytes 0 % not estab. Not Available [facility] ([facility]) [address] [facility], [place], [address], 02/02/2024 19:51:40 01/25/20 24 01/25/2024 CBC WITH DIFFE RENTI AL/PL ATELE T immature grans (abs) 0.0 x10e3 /uL 0.0-0. 1 Not Available [facility] ([facility]) [address] [facility], [place], [address], 02/02/2024 19:51:40 01/25/20 24 01/25/2024 CBC WITH DIFFE RENTI AL/PL ATELE T NRBC REGIONAL AIRLINE PILOT Not Available [facility] ([facility]) [address] [facility], [place], [address], 02/02/2024 19:51:40 01/25/20 24 01/25/2024 CBC WITH DIFFE RENTI AL/PL ATELE T hematology comments: REGIONAL AIRLINE PILOT Not Available [facility] ([facility]) [address] [facility], [place], [address], 02/02/2024 19:51:40 01/25/20 24 01/27/2024 A1C W/GLY [...] (ADA) Not Available [facility] [address] [place], [address], 02/02/2024 19:51:41 01/25/20 24 01/27/2024 A1C W/GLY COMAR K(R) REFLE X estimated average glucose 111 mg/dL Not Available [facility] [address] [place], [address], 02/02/2024 19:51:41 01/25/20 24 01/27/2024 A1C W/GLY [...] s. Not Available [facility] [address] [facility], [place], [address], 02/02/2024 19:51:41 01/25/20 24 01/26/2024 IVELISSE+R F QN IVELISSE direct NEGATI VE negati ve Not Available [facility] ([facility]) [address] [facility], [place], [address], 02/02/2024 19:51:41 01/25/20 24 01/26/2024 IVELSISE+R F QN rheumatoid factor (rf) 11.7 IU/mL <14.0 normal Not Available [facility] ([facility]) [address] [facility], [place], [address], 02/02/2024 19:51:41 01/25/20 24 02/02/2024 THYRO ID STIMU LATIN G HORMO NE TSH-icma 1.4 uu/mL Refer ence Range : Non-P regna nt Adult 0.450 -4.50 0 Pregn sotero First Trime ster 0.100 -4.00 0 Secon d Trime ster 0.200 -4.00 0 Third Trime ster 0.300 -4.50 0 Not Available [facility] [address] [facility], [place], [address], 02/02/2024 19:51:42 01/25/20 24 01/26/2024 SYPHI LIS RPR W/REF FANNY RPR NON REACTI VE non reacti ve Not Available [facility] ([facility]) [address] [facility], [place], [address], 02/02/2024 19:51:42 01/25/20 24 01/26/2024 SEDIM ENTAT ION RATE- WESTE RGREN sedimentatio n rate-westerg narendra 9 mm/HR 0-40 normal Not Available [facility] ([facility]) [address] [place], [address], 02/02/2024 19:51:43 01/25/20 24 01/26/2024 C-JAMES CTIVE PROTE IN, QUANT C-reactive protein, quant 5 mg/L 0-10 normal Not Available [facility] ([facility]) [address] [place], [address], 02/02/2024 19:51:43 02/14/19 25 02/16/2024 LYME DISEA [...] t infec tion is suspe cted, allyn augustine ng on a new sampl e colle cted in 7 to 14 days is recom lucina d. Not Available [facility] ([facility]) [address] [facility], [place], [address], 02/16/2024 13:16:30 01/25/20 24 audio gram No observ ation record ed. Not Available 14:35:22 02/09/20 24 02/08/2024 MRI, brain + brain stem, w/wo contr ast [facility] Access ion Number : [id number] Patisaima t Name: Kanwal Espinosa Record Number : [id number] Date of : 1960 Date of Exam: 2023 Referr ing Physic alexia: Mane Zaman re Ear Nose [address] [place] [address], [place] [address] Exam: MR Brain (C-/C+ ) CPT 02143 Room Descri ption: [facility] Verio 3.0T HISTOR Y: Bilate ral sensor ineura l hearin g loss. TECHNI QUE: Multip lanar multis equenc e MRI of the brain (IAC) was obtain ed before and after the admini strati on of 16 cc of Dotare m. COMPAR MOIRA: No prior studie s are availa ble for compar moira at [facility] . FINDIN [...] cerebe llopon victoriano angle cister n or quality assurance intern al audito ry canal. No abnorm al [...] repres ent acute sinusi tis in the approp [facility] marina kelley Electr onical ly Signed By: Deshawn Greenfield MD [email or web address] [facility] ([facility]) [address] [facility], [place], [address], 02/15/2024 11:33:58 07/09/19 25 audio gram No observ ation record ed. BARCODE Not Available 2024 09:39:03 Result Notes Documentation Provider Name and Address Organization Details Recorded Time Mri, Brain + Brain Stem, W/wo Contrast : [facility] Accession Number: [id number] Patient Name: Kanwal Jimenez Date of : 1960 Date of Exam: 02-08-2024 Referring Physician: Micah Zaman Ear Nose [address] [facility] [address] [place] [address] Exam: MR Brain (C-/C+) CPT 88543 Room Description: [facility] Verio 3.0T HISTORY: Bilateral sensorineural hearing loss. TECHNIQUE: Multiplanar multisequence MRI of the brain (IAC) was obtained before and after the administration of 16 cc of Dotarem. COMPARISON: No prior studies are available for comparison at [facility]. FINDINGS: On the high-resolution axial T2-weighted images, a short vascular loop is situated between the right cochlear/facial nerves and superior and inferior vestibular nerves. Expected T2 bright cochlear signal is maintained. There is no mass or abnormal enhancement within either cerebellopontine angle cistern or internal auditory canal. No abnormal cochlear enhancement. The ventricles are normal in size. The cerebellum and brainstem are normal in signal. Multiple scattered T2 bright foci are present within the supratentorial white matter. These are nonspecific, but are compatible with chronic microangiopathic/small vessel ischemic change. The visualized extracranial soft tissues and orbital structures are unremarkable. Fluid is present within the left maxillary sinus. IMPRESSION: 1. No retrocochlear lesion. 2. Fluid within the left maxillary sinus is nonspecific, but could represent acute sinusitis in the appropriate clinical setting. Electronically Signed By: Deshawn ZAMAN MD [address] [facility] [address], [place], [address], [facility] - [facility] 02/15/2024 11:33:58 Problems Name Problem SNOMED Code Status Onset Date Resolution Date Notes Provider Name and Address Organization Details Recorded Time Sensorine ural hearing loss of bilateral ears 558152276 Active 2021 Sensorine ural hearing loss, bilateral ; Note: Date Diagnosed : 11/01/2021 9:20 AM (H90.3) Not Available [facility] 4 02:36:19 Mixed conductiv e and sensorine ural hearing loss, bilateral 821926052 Active 2023 SOLITARIO MENCHACA MD [address] [facility] [address],[place] [address], [place], [address] , [facility] 4 13:40:48 Sensorine ural hearing loss of bilateral ears 087416053 Active 2024 MICAH ZAMAN MD [address] [facility] [address],[place] [address], [place], [address] , [facility] 5 14:51:05 Mixed conductiv e and sensorine ural hearing loss, bilateral 563015928 Active 2024 HÉCTOR TRISTAN [address] [facility] [address],[facility] [address], [place], [address] , [facility] 5 09:15:17 Bilateral tinnitus 43725654812 02 Active 2024 MICAH ZAMAN MD [address] [facility] [address],[place] [address], [place], [address] , [place] - [facility] 10:04:11 Problem Notes None recorded. Procedures Surgical History Date Name Laterality Status Provider Name and Address Organization Details Recorded Time 06/15/19 25 Comp Audio with Tymps - 77268 & 79480 completed TABBY BARAHONA, AUD [address] [facility],[address], [address], [place] - [facility] 06/14/2024 09:15:02 02/14/19 25 Telehealth completed MICAH ZAMAN MD [address] [facility],[address], [address], [place] - [facility] 02/15/2024 11:33:49 01/25/20 24 Comp Audio with Tymps - 92902 & 92633 completed HARRY JOYNER, AUD [address] [facility],[address], [address], [place] - [facility] 01/25/2024 12:00:11 section completed Ivelisse Rust [place] - [facility] 06/14/2024 09:43:01 total replacement of hip completed Ivelisse Rust [place] - [facility] 06/14/2024 09:43:08 Imaging Results None recorded. Procedure Notes None [...] mg tablet 01/24 completed Medicati on ID: [id number] B rand Name: kranthi anderson (contrac eptive) Send Method: E-Prescr ibed Sub s Allowed: subs OK Medic ationGen ericName : norethin drone (contrac eptive) Not Available Not Available Not Available Vitals Date Recorded Body height Provider Name an d Address Organization Details Last Updated DateTime 02/15/2024 160.02 cm MICAH ZAMAN MD [address] [place] [address], [address], [facility] - [facility] 02/15/2024 11:32:21 Date Recorded Body height Body mass index (BMI) Body weight Provider Name and Address Organization Details Last Updated DateTime 01/25/2024 160.02 cm 31 kg/m2 73824.66 g Osiris Baltazar [place] [facility] 01/25/2024 11:18:48 Social History None recorded. Functional Status None recorded. Mental Status None recorded. Family History Nothing Reported. Medical History No medical history recorded. Gynecological HistoryNo gynecological history recorded. Obstetrics History GPAL:G 0 P 0 0 0 0 Past Encounters Encounter ID Performer Location Encounter Start Date Encounter Closed Date Diagnosis/Indication Diagnosis SNOMED-CT Code Diagnosis ICD10 Code Diagnosis Note [id number] OSLITARIO MENCHACA MD [facility] [address] [address] 11/02/2023 13:02:04 11/02/2023 13:55:29 Mixed conductive and sensorineural hearing loss, bilateral 948857026 H90.6 [id number] MICAH ZAMAN MD [facility] [address] [address] 01/25/2024 11:07:08 01/25/2024 12:32:28 Sensorineural hearing loss of bilateral ears 326502879 H90.3 Audiometri c testing was repeated today [...] to bring to her audiologis t at [facility] audiology to ensure that her hearing [...] . Family his tory of hearing loss [id number] Z82.2 [id number] HÉCTOR SCOTT [facility] [address] [address] 01/25/2024 11:59:19 01/26/2024 07:44:56 Mixed conductive and sensorineural hearing loss, bilateral 890523729 H90.6 Right Ear:Modera tely-sever e through 1K Hz rising to a mild SNHL through 3K Hz sloping to a moderate HF HL with excellent speech discrimina tion.Type C tympanogra m.Left Ear:Severe rising to moderate MHL with excellent speech discrimina tion.Type C tympanogra m. Sensorineu ral hearing loss of bilateral ears 709473420 H90.3 [id number] MICAH ZAMAN MD [facility] [address] [address] 02/15/2024 11:32:04 02/15/2024 11:49:32 Sensorineural hearing loss of bilateral ears 790820289 H90.3 Family his tory of hearing loss 134522399 Z82.2 [id number] MICAH ZAMAN MD [facility] [address] [address] 06/14/2024 08:53:05 06/14/2024 10:22:07 Sensorineural hearing loss of bilateral ears 001749640 H90.3 Family his tory of hearing loss 371371931 Z82.2 Bilateral tinnitus 62129 7[address] 102 H93.13 [id number] HÉCTOR TRISTAN [facility] [address] [address] 06/14/2024 09:14:50 06/17/2024 01:53:26 Mixed conductive and sensorineural hearing loss, bilateral 291071587 H90.6 Audiologic al evaluation results: Right ear: Moderately -severe flat mixed hearing loss with poor word recognitio n. Left ear: Moderate ring to mild sloping to severe mixed hearing loss with excellent word recognitio n. Tympanomet ry: Right Ear:Type A Left Ear:Type A Health Concerns Section Related Observation LastModified by Organization Detai ls LastModified Time None Recorded Concern Status LastModified by Organization Details LastModified Time None Recorded Advance Directives Directive None Recorded Payers Insurance Date Sequence Insurance Name Policy Number Policy Gutierrez Covered Member ID Gutierrez Member ID Guarantor Name 06/13/2024 1 [place] [employer] Kanwal Jimenez [id number] Kanwal Jimenez 07/06/2024 2 [place] [id number] Kanwal Jimenez [id number] Kanwal Jimenez Notes Date Note Type [...] October 2023 with updated audiometric testing from [facility] audiology showing a significant change in the right sensorineural thresholds, with significant worsening in speech discrimination. Patient reports maternal family history of childhood onset hearing loss, her mother had surgery on her ear but it did not help. Patient's brother has hearing loss as well which started in his 50s.Patient reports that she has since obtained binaural amplification from [facility] audiology. Overall she seems to be doing well with them, though she feels that on some days her general hearing is not as good as other days. She does not notice a unilateral fluctuation in hearing, only a general sense that her hearing has good days and bad days. No dizziness or balance disturbance at all. MICAH ZAMAN MD [address] [facility],[place] [address], [place], [address], [facility] - [facility] 01/25/2024 12:36:25 02/15/2024 text/html Patient with [...] of her first and second degree relatives. MICAH ZAMAN MD 100 [facility] [address], [place], [address], [facility] 02/15/2024 11:42:20 06/14/2024 text/html 64-year-old fema le with apparently progressive sensorineural hearing loss. MRI and laboratory testing negative. Patient does have a very strong family history of early onset and progressive sensorineural hearing loss in 6 or 7 of her first and second-degree relatives. Using binaural amplification managed through [facility] audiology. She comes 4-month follow-up audiogram to assess for progression. MICAH ZAMAN MD [address] [facility] [address], [place], [address], [facility] 06/14/2024 10:08:56 OBGyn Episode No OBEpisode recorded.
--- NOTE | 2024-07-22 13:11 | MHC.AU.HA3 ---
Hearing Instrument Follow-Up- Binaural Date of Visit: 07/22/24 Right Ear: Gilbert, Model, Color, Serial Number: Monserrat Soria I 70 R, bayron boyle S#[id number] Bag Sorter Repair Warranty: 01/01/2027 Bag Sorter Loss and Damage Warranty: 01/01/2027 [facility] Service Plan: n/a Battery Size: Rechargeable Surgical Scrub Technologist/Slim Tube: 1M Earmold/Dome/CShell/SlimTip:silicone skeleton [id number] Warranty 05/04/2024 Type of Wax Guard: Cerustop Dispensed By: [facility] Date of Fittin12/09/2023 Left Ear: Gilbert, , Color, Serial Number: Monserrat Soria I 70 Rjimi S#[id number] Bag Sorter Repair Warranty: 01/01/2027 Bag Sorter Loss and Damage Warranty: 01/01/2027 [facility] Service Plan: n/a Battery Size: Rechargeable Surgical Scrub Technologist/Slim Tube: 2 M Earmold/Dome/CShell/SlimTip: silicone skeleton [id number] Warranty 05/04/2024 Type of Wax Guard: Cerustop Dispensed By: [facility] Date of Fittin12/09/2023 Follow-Up Summary: Kanwal is seen for hearing aid adjustment due to changes in hearing noted on recent audiogram at [facility]NT. Cleaned both hearing aids and earmolds, replaced wax guards. Listening check positive. Adjusted hearing aid settings to 06/14/24 audiogram from ENT. Kanwal reports they sound better. She will have her hearing tested at ENT again in ~ 6 months. Advised to return for adjustment with updated audiogram as needed. She noted recent vertigo episode and plans to call Dr. Rosario to discuss. Circumstances described (head turns to left) suggest it may have been positional. Advised to consult ENT as planned. Recommendations: Recommendations: Hearing instrument follow-up or maintenance as needed. Diagnosis Code(s): Primary Diagnosis: H90.3 Bilateral Sensorineural Hearing Loss Signature: Provider: Lion Aguilar, [facility]
== END 2024-07-22 09:06 | disposition home or self-care (01) ==
LOC: HO.HAP 09:05
PROVIDERS: Visit Provider Physician Assistant
DX: Z46.1 Encounter for fitting and adjustment of hearing aid (principal); H90.3 Sensorineural hearing loss, bilateral
CPT/HCPCS: 92593

== ENCOUNTER 2024-09-15 11:11 | Outpatient (REF) | payer MEDICARE, SELFPAY ==
--- NOTE | ~2024-09-15 | XR_ITS ---
EXAMINATION: XR KNEE AP STANDING CLINICAL INFORMATION: M25.561 - Pain in right knee COMPARISON: April 20082017. Correlated to x-ray right knee dated June 24, 2024. TECHNIQUE: AP bilateral standing view of the knees was obtained. FINDINGS: Joint space narrowing involving mostly the medial and to a lesser extent lateral compartments with sclerosis and the articular surfaces of the tibial plateau. No acute cortical disruption. No gross lytic or blastic lesions. No subcutaneous emphysema. XR/XR knee standing BI IMPRESSION: Bicompartmental osteoporosis, mild to moderate. Unchanged. Electronically signed by: Eddi Guerra MD 09/15/2024 02:23 PM EDT
--- OUTSIDE RECORDS SUMMARY | 2024-09-16 11:17 | XMS_ITS | Clinical Summary ---
Author Organization [facility] Address [address] [facility] [address] [place] [address] Phone Care Team Providers Care Vending Machine Attendant Name Role Phone Ismael Lind MD Primary [...] Most Recently Relevant to Health Maintenance Insurance [facility] HMO POS [facility] HMO POS [facility] [place] [address] [place] [address] [place] [address] [place] [address] [place] [address] [place] [address] HMO POS Care Teams Vending Machine Attendant Relationship Specialty Start Date End Date Ismael Lind MD [address] [place] [address] [place] [address] PCP - General Internal Medicine 04/15/18 Additional Source Comments The information contained in this document represents components of the legal health record. It is not the complete legal health record.[facility]
--- OUTSIDE RECORDS SUMMARY | 2024-09-16 11:17 | XMS_ITS | Patient Health Record ---
Author Organization [facility] Address [address] [place] [address] Care Team Providers Care Rib Cloth Knitter Name Role Phone Diogo (RETIRED) Ismael MCELROY Primary Care Provide r Unavailable Grey Delgado Unavailable [phone] Reason For Referral No Information Medications Medication SIG (Take, Route, Frequency, Duration) Notes Start Date End Date Status Albuterol 02/10/2024 02/10/2024 Active PriLOSEC Active Problems Problem Type SNOMED Code ICD Code Onset Dates Problem Status W/U Status Risk Notes Problem Esophageal reflux (487003520) Esophageal reflux (530.81) Active confirmed Plan Of Treatment Pending Test Test Name Order Date XR BARIUM SWALLOW-ESOPHAGUS 02/12/2011 XR GI SERIES 02/12/2011 Insurance Providers Payer Name Payer Address Payer Phone Subscriber Number Group Number Insured Name Patient Relationship to Insured Coverage Start Date Coverage End Date [facility] [address] [place] [address] [phone] [id number] IGOR TYLER Self - patient is the insured Medical (General) History Medical History History ICD Code Asthma GERD Denies ME,DM,CVA,Lung disease,renal dise ase Surgical History Surgery Date(Month/Year)
== END 2024-09-15 11:12 | disposition home or self-care (01) ==
LOC: HO.HOSX 11:11
PROVIDERS: Visit Provider Physician Assistant
DX: M17.11 Unilateral primary osteoarthritis, right knee (principal); M25.562 Pain in left knee
CPT/HCPCS: 73565; 99212

== ENCOUNTER 2024-09-15 12:51 | Outpatient (AMB) | payer MEDICARE, SELFPAY ==
--- NOTE | 2024-09-15 12:54 | MHC.OFFVIS ---
Vital Signs 09/15/24 13:02 Height 5 ft 3 in Weight 190 lb BMI 33.7 Intake Visit Reasons: INFORMATION RESOURCES DIRECTOR: right knee pain Intake Note: Kanwal is a 64 year old female who presents today as a new patient for an evaluation of right knee pain. Patient was seen by PCP due to pain in right knee and ankle after she stepped down a steep step sometime in May, denies fall. A referral to physical therapy and orthopedics was placed. Patient reports an achy pain that is located at the medial aspect of knee. She continues to attend physical therapy and feels it is helping. Hx of right ankle surgery, performed by Dr. Alejandro. She mentions a fall about a month ago on her right side. Allergies hydromorphone (From DILAUDID) Allergy (Unknown, Verified 09/15/24 13:02) HALLUCINATIONS Medication List - Last Reconciled 09/15/24 by Luciana Hopper PA-C albuterol sulfate 90 mcg/actuation 2 puffs inhalation QID PRN albuterol sulfate 2.5 mg (3 mL) inhalation .every 6 hour PRN HPI HPI INFORMATION RESOURCES DIRECTOR: right knee pain: Details: 64-year-old female presents to the office today for pain in the right knee. She states she was walking down a step when she felt an unusual discomfort in the right knee. She also felt the pain into her right ankle which is status post ORIF several years ago. She is known to our office with Dr. Alejandro for a total hip arthroplasty in 2018. Patient has been attending physical therapy for both knees prescribed by her primary care provider. She states physical therapy has been helping and she has mild discomfort with daily activities especially stairs but otherwise she is progressing well. [facility] Medical History (Updated 09/15/24 @ 13:40 by Luciana Hopper PA-C) Asthma Surgical History (Updated 09/15/24 @ 13:04 by BRENDA Crisostomo) History of ankle surgery History of History of bilateral hip replacements Family History Mother HTN (hypertension) Social History Household Members: Significant Other Housing: House Alcohol intake: never Patient Tobacco Use Status: Never used Tobacco service: No Current occupational status: retired Sexual orientation: Straight/Heterosexual Gender identity: Female Cognitive needs: No Hearing needs: No Vision needs: No Female Reproductive History Menstrual Age of Menarche: 10 Review of Systems Const All systems reviewed & are unremarkable except as noted in HPI and below Physical Exam Vital Signs: BMI result Body Mass Index 33.7 Const General: cooperative, healthy appearing, comfortable and no acute distress Orientation/consciousness: patient oriented x3 HEENT Head: Yes normal to inspection and Yes atraumatic Ears: hearing grossly normal bilaterally Eyes General: appearance normal, both eyes and all related structures Neck Neck: Yes normal visual inspection and Yes no lymphadenopathy Resp Effort & Inspection: normal respiratory effort and able to speak in complete sentences Cardio Peripheral pulses: Peripheral pulses 2+ throughout Neuro General: patient oriented x3 Extrem Other: Right knee is normal to inspection she has no erythema or joint effusion. Range of motion is full with crepitus. Mild tenderness over the pes bursa. Calf supple and nontender neurovascularly intact. Psych Appearance: well kempt Results Reviewed Results Reviewed: X-rays of the right knee obtained in the office today and reviewed by me are significant for mild arthritis along the medial and lateral joint line. She has patellofemoral arthritis. Assessment & Plan Assessment & Plan (1) Osteoarthritis of right knee: Code(s): M17.11 - Unilateral primary osteoarthritis, right knee Category: Medical Plan: She will continue to work with physical therapy and I stressed the importance of glute strengthening along with quad strengthening and conditioning exercises. She was fit for a knee brace in the office today to help with her stability. If symptoms persist or worsen and there is any concerns she will contact our office otherwise she will follow up as needed. Orders: Orders XR knee standing BI Today M25.561 - Pain in right knee, M25.562 - Pain in left knee Coding Level of Care Code Est Pt Level 3 (57010) Complex EM visit Add On G2211 Diagnoses Osteoarthritis of right knee M17.11
--- OUTSIDE RECORDS SUMMARY | 2024-09-15 12:54 | XMS_ITS | Clinical Summary ---
Author Organization [facility] Address [address] [facility] [address] [place] [address] Phone Care Team Providers Care Student Financial Aid Manager Name Role Phone Ismael Lind MD Primary Care Provider Allergies No known active allergies Medications albuterol (ACCUNEB) 0.63 mg/3 mL nebulizer solution Take 1 ampule by nebulization every 6 (six) hours as needed for wheezing. Active omeprazole (PRILOSEC) 10 MG capsule Take 10 mg by mouth daily. Active NORETHINDRONE ACETATE ORAL Take by mouth. Ac tive norethindrone (MICRONOR) 0.35 mg tablet Take 1 tablet (0.35 mg total) by mouth daily. Micronor 1 tab po QD 84 tablet 3 9 Active Active Problems Problem Noted Date Diagnosed Date Vaginal atrophy 04/15/2018 Family History Medical History Relation Comments No Known Problems Father Graves' disease Mother Hypertension Mother Thyroid disease Mother Relation Status Comments Father Mother Social History Tobacco Use Types Packs/Day Years Used Date Smoking Tobacco: Never Smokeless Tobacco: Never Alcohol Use Standard Drinks/Week Comments No 0 (1 standard drink = 0.6 oz pur e alcohol) rare Education Answer Date Recorded Are you interested in more education? Not on humberto e 06/06/2022 Are you concerned about learning? Not on file 06/06/2022 No 06/06/2022 No 06/06/2022 Digital Access Answer Date Recorded No 07/05/2022 No 07/05/2022 No 07/05/2022 Reliable internet access at home? Not on file 07/05/2022 Device with a working camera? Not on file Comments No Sex and Gender Information Value Date Recorded Sex Assigned at Not on file Legal Sex Female 9:15 AM EST Gender Identity Not on file Sexual Orientation Not on file Last Filed Vital Signs Vital Sign Reading Time Taken Comments Blood Pressure 138/82 04/15/2018 10:35 AM EST Pulse - - Temperature - - Respiratory Rate - - Oxygen Saturation - - Inhaled Oxygen Concentration - - Weight 73.2 kg (161 lb 6.4 oz) 04/15/2018 10:35 AM EST Height 160 cm (5' 3 ) 04/15/2018 10:35 AM EST Body Mass Index 28.59 04/15/2018 10:35 AM EST Plan of Treatment Health Maintenance Due Date Last Done Comments LIPID PANEL 1958 DEPRESSION SCREENING 1970 HEPATITIS C SCREENING 1976 COLOGUARD 04/20/2003 COLONOSCOPY 04/20/2003 COLORECTAL CANCER SCREENING 04/20/2003 FIT TEST 04/20/2003 FOBT 04/20/2003 SIGMOIDOSCOPY 04/20/2003 VIRTUAL COLONOSCOPY 04/20/2003 ZOSTER VACCINES (1 of 2) 2008 MAMMOGRAM 04/02/2020 04/02/2018 PNEUMOCOCCAL VACCINES (50+ y ears) (2 of 2 - PCV) 08/25/2020 08/26/2019 OSTEOPOROSIS SCREENING INITI AL (ONE-TIME) 04/20/2023 COVID-19 VACCINE (2 - 2023-2 5 season) 2023 04/23/2020 Adult Td,Tdap Booster 08/03/2029 08/04/2019 RSV VACCINE (1 - 1-dose 75+ series) 2033 SMOKING STATUS SCREENING (On ce After 26 Yrs) Completed 04/15/2018 HEPATITIS A VACCINES Aged Out No long er eligible based on patient's age to complete this topic HIB VACCINES Aged Out No longer eligi ble based on patient's age to complete this topic MENINGOCOCCAL VACCINES (ACWY) Aged Out No longer eligible based on patient's age to complete this topic MENINGOCOCCAL VACCINES (B) Aged Out N o longer eligible based on patient's age to complete this topic Medical Devices Not on file Procedures Procedure Name Priority Date/Time Associated Diagnosis Comments MAMMOGRAPHY Routine 04/02/2018 from Last 3 Months or Most Recently Relevant to Health Maintenance Results * MAMMOGRAPHY FOR RESULT ENTRY ONLY (04/02/2018) Grey Benavides MD HEALTH MAINTENANCE Final Result from Last 3 Months or Most Recently Relevant to Health Maintenance Insurance [facility] HMO POS [facility] HMO POS [facility] [place] [address] [place] [address] [place] [address] [place] [address] [place] [address] [place] [address] HMO POS Care Teams Student Financial Aid Manager Relationship Specialty Start Date End Date Ismael Lind MD [address] [place] [address] [place] [address] PCP - General Internal Medicine 04/15/18 Additional Source Comments The information contained in this document represents components of the legal health record. It is not the complete legal health record.[facility]
--- OUTSIDE RECORDS SUMMARY | 2024-09-15 12:54 | XMS_ITS | Patient Health Record ---
Author Organization [facility] Address [address] [place] [address] Care Team Providers Care Doughnut Machine Operator Helper Name Role Phone Diogo (RETIRED) Ismael MCELROY Primary Care Provide r Unavailable Grey Delgado Unavailable [phone] Reason For Referral No Information Medications Medication SIG (Take, Route, Frequency, Duration) Notes Start Date End Date Status Albuterol 02/10/2024 02/10/2024 Active PriLOSEC Active Problems Problem Type SNOMED Code ICD Code Onset Dates Problem Status W/U Status Risk Notes Problem Esophageal reflux (106827514) Esophageal reflux (530.81) Active confirmed Plan Of Treatment Pending Test Test Name Order Date XR BARIUM SWALLOW-ESOPHAGUS 02/12/2011 XR GI SERIES 02/12/2011 Insurance Providers Payer Name Payer Address Payer Phone Subscriber Number Group Number Insured Name Patient Relationship to Insured Coverage Start Date [facility]age End Date [facility] [address] [place] [address] [phone] [id number] IGOR TYLER Self - patient is the insured Medical (General) History Medical History History ICD Code Asthma GERD Denies AL,DM,CVA,Lung disease,renal dise ase Surgical History Surgery Date(Month/Year)
[2024-09-15 13:02] VITALS: BMI 33.7
== END 2024-09-15 14:27 | disposition home or self-care (01) ==
PROVIDERS: PCP Physician Assistant; Visit Provider Physician Assistant
DX: M17.11 Unilateral primary osteoarthritis, right knee (principal)
CPT/HCPCS: 99213; G2211

== ENCOUNTER → 2024-09-15 12:53 | Outpatient (BNV) | payer MEDICARE, SELFPAY | PROVIDERS: Visit Provider Radiology Diagnostic Radiology | DX: M17.0 Bilateral primary osteoarthritis of knee (principal) | CPT/HCPCS: 73565 ==

== ENCOUNTER 2024-11-14 08:02 | Outpatient (AMB) | payer MEDICARE, SELFPAY ==
--- NOTE | 2024-11-14 08:10 | A.OFFPC_ITS ---
Vital Signs 11/14/24 08:17 11/14/24 08:41 Height 5 ft 3 in Weight 90.265 kg BMI 35.2 BP 150/90 H 134/76 Blood Pressure Location Lt brachial Position Sitting Respiration 16 Pulse 76 Pulse Source Pulse Oximeter Temp 96.8 F Temp Source Temporal Artery Scan Pulse Oximetry (%) 97 Intake Visit Reasons: Routine / F/U - see comments Pipe Layer Helper Required: No Accompanied by: Self / Same As Patient Allergies hydromorphone (From DILAUDID) Allergy (Unknown, Verified 11/14/24 08:11) HALLUCINATIONS Medication List - Last Reconciled 11/14/24 by ISMA Vera albuterol sulfate 90 mcg/actuation 2 puffs inhalation QID PRN albuterol sulfate 2.5 mg (3 mL) inhalation .every 6 hour PRN multivitamin 1 tab PO DAILY Tobacco use date assessed: 06/22/24 Dental Screening Dental Screen Date: 06/22/24 HPI HPI Comments History of Present Illness Details 64-year-old female with history of mild intermittent asthma and obesity presents to the office today for follow-up Mild intermittent asthma-no recent exacerbation. Rare use of albuterol inhaler/nebulizer Obesity-not actively working on weight loss, mostly secondary to physical limitations. However is trying to walk for exercises and does plan on getting a stationary bike. She is looking forward to a vacation with her granddaughter to [place] and would like to prepare for the amount of walking for this vacation Osteoarthritis of multiple joints-most prominent in the knees bilaterally R>L. Has been following with physical therapy with great improvement since onset of pain and june. Was told she has a slight displacement of the right patella that is likely contributing to her pain. She has received cortisone injections in the past. She is trying to avoid surgery. Follows with Orthopedic surgery as well. Denies any instability in the joint. Pain is most prominent when on the stairs. Overall she states she is able to function. XR of the bilateral knees 09/15/2024 shows bicompartmental osteoarthritis, [id number] which is unchanged. Bilateral hearing loss-following with ENT, has had MRI r/o structural abnormality/mass. No cranial nerve issues. Following with Dr. Rosario. She does have hearing aids bilaterally. She is a candidate for cochlear implants but is not interested in this. She has also had several episodes of vertigo months apart that last for over several minutes. There is some associated nausea. Concerns: None other than above Health maintenance: Reports mammograms [id number] to review in the chart. Will request Last DEXA scan 05/2024 which was normal Last colonoscopy 11/2022 ROS: See HPI EXAM: Constitutional - Awake and Alert, No apparent distress Eyes - PERRL Cardiovascular - S1S2, RRR, No edema Respiratory - Normal lung expansion, Normal respiratory effort, No respiratory distress, CTA bilaterally Extremities - no calf tenderness bilaterally, no swelling Skin - Warm/Dry Neurological - Alert & oriented x3 Psychological - Appropriate affect PFSH Medical History (Updated 11/14/24 @ 10:06 by ISMA Vera) Vertigo Bilateral hearing loss Obesity Asthma Surgical History (Updated 09/15/24 @ 13:04 by Amy Denise Andry) History of ankle surgery History of History of bilateral hip replacements Family History Mother HTN (hypertension) Social History Household Members: Significant Other Housing: House Alcohol intake: never Patient Tobacco Use Status: Never used Tobacco service: No Current occupational status: retired Sexual orientation: Straight/Heterosexual Gender identity: Female Cognitive needs: No Hearing needs: No Vision needs: No Female Reproductive History Menstrual Age of Menarche: 10 Questionnaire Thrive Questionnaire Date Thrive assessed: 06/22/24 FERNANDO-7 AMB Questionnaire FERNANDO-7 Date FERNANDO - 7 assessed: 06/22/24 Source: Developed by Drs. Grey King, Niyah Cobb, Terrance Perez and colleagues, with an educational negrita from [employer]. Physical exam (Primary Care) Vital Signs: Last Vital Signs Temp 96.8 F 11/14/24 08:17 Pulse 76 11/14/24 08:17 Resp 16 11/14/24 08:17 BP 134/76 11/14/24 08:41 Pulse Ox 97 11/14/24 08:17 BMI result Body Mass Index 35.2 Tobacco/Smoking Status: Tobacco use Status Tobacco use date assessed 06/22/24 11/14/24 08:14 Patient Tobacco Use Status Never used Tobacco 11/14/24 08:14 Thrive Assessment: Date of Thrive Assessment Date Thrive assessed 06/22/24 11/14/24 08:14 Coding Level of Care Code Est Pt Level 4 (85464) Complex EM visit Add On G2211 Diagnoses Asthma J45.909 Right knee pain M25.561 Obesity E66.9 Bilateral hearing loss H91.93 Vertigo R42 Assessment & Plan Assessment & Plan (1) Asthma: Code(s): J45.909 - Unspecified asthma, uncomplicated Category: Medical Plan: Controlled. Use albuterol only as needed for shortness of breath and wheezing (2) Right knee pain: Code(s): M25.561 - Pain in right knee Category: Medical Plan: Reviewed last Orthopedic surgery note. Continue with physical therapy. OTC analgesics as needed. Continue home exercises. Follow-up with ortho as scheduled (3) Obesity: Code(s): E66.9 - Obesity, unspecified Category: Medical Plan: Continue with weight loss efforts with increased activity/duration/weight- bearing as knee pain improves. Continue with healthy diet lower in calories with emphasis on increased protein, fruits, vegetables and lower in refined sugars, simple carbohydrates, highly processed foods. (4) Bilateral hearing loss: Code(s): H91.93 - Unspecified hearing loss, bilateral Category: Medical Plan: Given associated vertigo, labyrinthitis. Meniere's unlikely given normal MRI. Follow-up with ENT as scheduled. Continue with hearing aids (5) Vertigo: Code(s): R42 - Dizziness and giddiness Category: Medical Plan: As above Plan Follow-up in 6 months, labs to be completed following visit. She declines colonoscopy but is interested in Cologuard Orders: Orders Hemoglobin A1c Today J45.909 - Unspecified asthma, uncomplicated, M25.571 - Pain in right ankle and joints of right foot, Z13.1 - Encounter for screening for diabetes mellitus, Z13.220 - Encounter for screening for lipoid disorders Lipid Panel Today J45.909 - Unspecified asthma, uncomplicated, M25.571 - Pain in right ankle and joints of right foot, Z13.1 - Encounter for screening for diabetes mellitus, Z13.220 - Encounter for screening for lipoid disorders Basic Metabolic Panel Today J45.909 - Unspecified asthma, uncomplicated, M25.571 - Pain in right ankle and joints of right foot, Z13.1 - Encounter for screening for diabetes mellitus, Z13.220 - Encounter for screening for lipoid disorders Complete Blood Count Auto Diff Today J45.909 - Unspecified asthma, uncomplicated, M25.571 - Pain in right ankle and joints of right foot, Z13.1 - Encounter for screening for diabetes mellitus, Z13.220 - Encounter for screening for lipoid disorders Liver Panel Today J45.909 - Unspecified asthma, uncomplicated, M25.571 - Pain in right ankle and joints of right foot, Z13.1 - Encounter for screening for diabetes mellitus, Z13.220 - Encounter for screening for lipoid disorders Referrals Cologuard Test Z12.11 - Encounter for screening for malignant neoplasm of colon, Z12.12 - Encounter for screening for malignant neoplasm of rectum
[2024-11-14 08:17] VITALS: BP 150/90; PULSE 76; RESP 16; TEMP 36; O2SAT 97; BMI 35.2
[2024-11-14 08:41] VITALS: BP 134/76
== END 2024-11-14 08:50 | disposition home or self-care (01) ==
LOC: HO.HMCHD 08:03
PROVIDERS: PCP Physician Assistant; Visit Provider Physician Assistant
DX: J45.909 Unspecified asthma, uncomplicated (principal); M25.561 Pain in right knee; E66.9 Obesity, unspecified; H91.93 Unspecified hearing loss, bilateral; R42 Dizziness and giddiness

== ENCOUNTER → 2024-11-14 08:02 | Outpatient (BNVA) | payer MEDICARE, SELFPAY | PROVIDERS: PCP Physician Assistant; Visit Provider Physician Assistant | DX: J45.20 Mild intermittent asthma, uncomplicated (principal); M25.561 Pain in right knee; E66.9 Obesity, unspecified; Z68.35 Body mass index [BMI] 35.0-35.9, adult; H91.93 Unspecified hearing loss, bilateral; R42 Dizziness and giddiness; M19.90 Unspecified osteoarthritis, unspecified site | CPT/HCPCS: 99212 ==

== ENCOUNTER 2024-11-14 09:07 | Outpatient (REF) | payer MEDICARE, SELFPAY ==
--- OUTSIDE RECORDS SUMMARY | 2024-11-14 10:13 | XMS_ITS | Clinical Summary ---
Author Organization [facility] Address [address] [facility] [address] [place] [address] Phone Care Team Providers Care Pharmacy Director Name Role Phone Ismael Lind MD Primary [...] 2008 MAMMOGRAM 04/02/2020 04/02/2018 PNEUMOCOCCAL VACCINES (50+ years) (2 of 2 - PCV) 08/25/2020 08/26/2019 OSTEOPOROSIS SCREENING INITIAL (ONE-TIME) 04/20/2023 INFLUENZA VACCINE (#1) 2024 0, 10/28/2018, 12/04/2017, Additional history exists COVID-19 VACCINE (2 - 2024- season) 2024 04/23/2020 Adult Td,Tdap Booster 08/03/2029 08/04/2019 RSV VACCINE (1 - 1-dose 75+ series) 2033 SMOKING STATUS SCREENING (Once After 26 Yrs) Completed 04/15/2018 HEPATITIS A [...] Most Recently Relevant to Health Maintenance [place] [address] [place] [address] [place] [place] [address] [place] [address] [place] [address] [place] [address] HMO POS [facility] [place] [address] [place] [address] HMO POS [facility] HMO POS Member Subscriber Plan / Payer (Ef fective 2013-Present) Name:Kanwal Jimenez Relation to Subscriber:Self Name:JimenezKanwal villalba Payer ID:[id number] (NAIC) Type:HMO Address: [address] [place], [place] [facility] HMO POS Member Subscriber Plan / Payer (Ef fective 2013-Present) Name:Kanwal Jimenez Relation to Subscriber:Self Name:Kanwal Jimenez Payer ID:[id number] (NAIC) Type:HMO Address: [address] [place], [place] [address] HMO POS Member Subscriber Plan / Payer (Ef fective 2013-Present) Name:Kanwal Jimenez Relation to Subscriber:Self Name:Kanwal Jimenez Payer ID:[id number] (NAIC) Type:HMO Address: [address] [place], [place] [address] HMO POS Care Teams Pharmacy Director Relationship Specialty Start Date End Date Ismael Lind MD [address] [place] [address] [place] [address] PCP - General Internal Medicine 04/15/18 Additional Source Comments The information contained in this document represents components of the legal health record. It is not the complete legal health record.[facility]
--- OUTSIDE RECORDS SUMMARY | 2024-11-14 10:13 | XMS_ITS | Patient Health Record ---
Author Organization [facility] Address [address] [place] [address] Care Team Providers Care Combatant Diver Qualified Name Role Phone Diogo (RETIRED) Ismael MCELROY Primary Care Provide r Unavailable Grey Delgado Unavailable [phone] Reason For Referral No Information Medications Medication SIG (Take, Route, Frequency, Duration) Notes Start Date End Date Status Albuterol 02/10/2024 02/10/2024 Active PriLOSEC Active Problems Problem Type SNOMED Code ICD Code Onset Dates Problem Status W/U Status Risk Notes Problem Esophageal reflux (334642414) Esophageal reflux (530.81) Active confirmed Plan Of Treatment Pending Test Test Name Order Date XR BARIUM SWALLOW-ESOPHAGUS 02/12/2011 XR GI SERIES 02/12/2011 Insurance Providers Payer Name Payer Address Payer Phone Subscriber Number Group Number Insured Name Patient Relationship to Insured Coverage Start Date Coverage End Date [facility] [address] [place] [address] [phone] [id number] IGOR TYLER Self - patient is the insured Medical (General) History Medical History History ICD Code Asthma GERD Denies [place],DM,CVA,Lung disease,renal dise ase Surgical History Surgery Date(Month/Year)
--- OUTSIDE RECORDS SUMMARY | 2024-11-14 10:13 | XMS_ITS | Data Portability ---
Author Organization [place] - [facility], Allergy Address [address] [place] [address] Care Team Providers Care Manager Sales Training Name Role Phone REMI SEGAL Primary Care [...] she should continue to work with her web content producer at [facility] audiology to ensure that her hearing [...] negative, so I will order this test. [email or web address] Not available 02/15/2024 11:38:16 06/14/2024 06/14/2024 Patient [...] She should continue to work with her web content producer at [facility] audiology to ensure that her hearing [...] future. Recommend follow-up audiogram in 6 months. Not available 06/14/2024 10:08:42 Plan of Treatment [...] Go To The Location Of Their Choice, 02/16/2024 13:16:31 CBC w/ auto diff 2023 [...] To The Location Of Their Choice, 02/02/2024 19:51:41 C-reactiv e protein, quantitat ana maría, serum or plasma 2023 [email or web address] [facility] (Centralized Electronic Ordering - All Locations), Patient Can Go To The Location Of Their Choice, 02/05/2024 12:05:00 ESR (erythroc yte sedimenta tion rate), blood 2023 [place] [facility] (Centralized Electronic Ordering - All Locations), Patient Can Go To The Location Of Their Choice, 02/02/2024 19:51:43 HbA1c (hemoglob in A1c), blood 2023 [place] [facility] (Centralized Electronic Ordering - All Locations), Patient Can Go To The Location Of Their Choice, [address] 02/02/2024 19:51:41 Referral None recorded. Procedures None recorded. Surgeries None recorded. Imaging MRI, brain + internal auditory canal, w/wo contrast - MRI, BRAIN + INTERNAL AUDITORY CANAL, W/WO CONTRAST 2023 [facility] ([facility]), [address] [place], [address], 02/09/2024 14:28:52 Medication Orders None recorded. Patient TargetsNo targets recorded. Patient InstructionsNo instructions recorded. Reason for Referral None Reported. Results Created Date Observation Date Name Description Value Unit Range Abnormal Flag Note LastModifiedBy Organization Detail LastModifiedTime 01/25/2001/25/2024 CBC WITH DIFFE RENTI AL/PL ATELE T WBC 9.0 x10e3 /uL 3.4-10 .8 normal Not Available [facility] ([facility]) [address] [facility], [place], [address], 02/02/2024 19:51:40 01/25/2001/25/2024 CBC WITH DIFFE RENTI AL/PL ATELE T RBC 4.45 x10e6 /uL 3.77-5 .28 normal Not Available [facility] ([facility]) [address] [place], [address], 02/02/2024 19:51:40 01/25/20 24 01/25/2024 CBC WITH DIFFE RENTI AL/PL ATELE T hemoglobin 14.5 g/dL 11.1-1 5.9 normal Not Available [facility] ([facility]) [address] [place], [address], 02/02/2024 19:51:40 01/25/2001/25/2024 CBC WITH DIFFE RENTI AL/PL ATELE T hematocrit 43.2 % 34.0-4 6.6 normal Not Available [facility] ([facility]) [address] [place], [address], 02/02/2024 19:51:40 01/25/20 24 01/25/2024 CBC WITH DIFFE RENTI AL/PL ATELE T MCV 97 fL 79-97 normal Not Available [facility] ([facility]) [address] [place], [address], 02/02/2024 19:51:40 01/25/20 24 01/25/2024 CBC WITH DIFFE RENTI AL/PL ATELE T MCH 32.6 pg 26.6-3 3.0 normal Not Available [facility] ([facility]) [address] [place], [address], 02/02/2024 19:51:40 01/25/20 24 01/25/2024 CBC WITH DIFFE RENTI AL/PL ATELE T MCHC 33.6 g/dL 31.5-3 5.7 normal Not Available [facility] ([facility]) [address] [place], [address], 02/02/2024 19:51:40 01/25/20 24 01/25/2024 CBC WITH DIFFE RENTI AL/PL ATELE T RDW 12.0 % 11.7-1 5.4 Not Available [facility] ([facility]) [address] [facility], [place], [address], 02/02/2024 19:51:40 01/25/20 24 01/25/2024 CBC WITH DIFFE RENTI AL/PL ATELE T platelets 267 x10e3 /uL 150-45 0 normal Not Available [facility] ([facility]) [address] [facility], [place], [address], 02/02/2024 19:51:40 01/25/20 24 01/25/2024 CBC WITH DIFFE RENTI AL/PL ATELE T neutrophils 72 % not estab. normal Not Available [facility] ([facility]) [address] [facility], [place], [address], 02/02/2024 19:51:40 01/25/20 24 01/25/2024 CBC WITH DIFFE RENTI AL/PL ATELE T lymphs 18 % not estab. normal Not Available [facility] ([facility]) [address] [facility], [place], [address], 02/02/2024 19:51:40 01/25/20 24 01/25/2024 CBC WITH DIFFE RENTI AL/PL ATELE T monocytes 7 % not estab. normal Not Available [facility] ([facility]) [address] [facility], [place], [address], 02/02/2024 19:51:40 01/25/20 24 01/25/2024 CBC WITH DIFFE RENTI AL/PL ATELE T eos 3 % not estab. normal Not Available [facility] ([facility]) [address] [facility], [place], [address], 02/02/2024 19:51:40 01/25/20 24 01/25/2024 CBC WITH DIFFE RENTI AL/PL ATELE T basos 0 % not estab. normal Not Available [facility] ([facility]) [address] [facility], [place], [address], 02/02/2024 19:51:40 01/25/20 24 01/25/2024 CBC WITH DIFFE RENTI AL/PL ATELE T immature cells COLLAR TRIMMER Not Available [facility] ([facility]) [address] [facility], [place], [address], 02/02/2024 19:51:40 01/25/20 24 01/25/2024 CBC WITH DIFFE RENTI AL/PL ATELE T neutrophils (absolute) 6.4 x10e3 /uL 1.4-7. 0 normal Not Available [facility] ([facility]) [address] [facility], [place], [address], 02/02/2024 19:51:40 01/25/20 24 01/25/2024 CBC WITH DIFFE RENTI AL/PL ATELE T lymphs (absolute) 1.6 x10e3 /uL 0.7-3. 1 normal Not Available [facility] ([facility]) [address] [place], [address], 02/02/2024 19:51:40 01/25/20 24 01/25/2024 CBC WITH DIFFE RENTI AL/PL ATELE T monocytes(ab solute) 0.7 x10e3 /uL 0.1-0. 9 normal Not Available [facility] ([facility]) [address] [facility], [place], [address], 02/02/2024 19:51:40 01/25/20 24 01/25/2024 CBC WITH DIFFE RENTI AL/PL ATELE T eos (absolute) 0.3 x10e3 /uL 0.0-0. 4 normal Not Available [facility] ([facility]) [address] [place], [address], 02/02/2024 19:51:40 01/25/20 24 01/25/2024 CBC WITH DIFFE RENTI AL/PL ATELE T baso (absolute) 0.0 x10e3 /uL 0.0-0. 2 normal Not Available [facility] ([facility]) [address] [facility], [place], [address], 02/02/2024 19:51:40 01/25/20 24 01/25/2024 CBC WITH DIFFE RENTI AL/PL ATELE T immature granulocytes 0 % not estab. Not Available [facility] ([facility]) [address] [facility], [place], [address], 02/02/2024 19:51:40 01/25/20 24 01/25/2024 CBC WITH DIFFE RENTI AL/PL ATELE T immature grans (abs) 0.0 x10e3 /uL 0.0-0. 1 Not Available [facility] ([facility]) [address] [facility], [place], [address], 02/02/2024 19:51:40 01/25/20 24 01/25/2024 CBC WITH DIFFE RENTI AL/PL ATELE T NRBC COLLAR TRIMMER Not Available [facility] ([facility]) [address] [facility], [place], [address], 02/02/2024 19:51:40 01/25/20 24 01/25/2024 CBC WITH DIFFE RENTI AL/PL ATELE T hematology comments: COLLAR TRIMMER Not Available [facility] ([facility]) [address] [facility], [place], [address], 02/02/2024 19:51:40 01/25/20 24 01/27/2024 A1C W/GLY [...] (ADA) Not Available [facility] [address] [place], [address], 02/02/2024 19:51:41 01/25/20 24 01/27/2024 A1C W/GLY COMAR K(R) REFLE X estimated average glucose 111 mg/dL Not Available [facility] [address] [facility], [place], [address], 02/02/2024 19:51:41 01/25/2001/27/2024 A1C W/GLY COMAR K(R) REFLE X glycomark(R) [...] s. Not Available [facility] [address] [facility], [place], [address], 02/02/2024 19:51:41 01/25/20 24 01/26/2024 IVELISSE+R F QN IVELISSE direct NEGATI VE negati ve Not Available [facility] ([facility]) [address] [facility], [place], [address], 02/02/2024 19:51:41 01/25/20 24 01/26/2024 IVELISSE+R F QN rheumatoid factor (rf) 11.7 IU/mL <14.0 normal Not Available [facility] ([facility]) [address] [facility], [place], [address], 02/02/2024 19:51:41 01/25/20 24 02/02/2024 THYRO ID STIMU LATIN G HORMO NE TSH-icma 1.4 uu/mL Refer ence Range : Non-P regna nt Adult 0.450 -4.50 0 Pregn sotero First Trime ster 0.100 -4.00 0 Secon d Trime ster 0.200 -4.00 0 Third Trime ster 0.300 -4.50 0 Not Available [facility] [address] [facility], [place], [address], 02/02/2024 19:51:42 01/25/20 24 01/26/2024 SYPHI LIS RPR W/REF FANNY RPR NON REACTI VE non reacti ve Not Available [facility] ([facility]) [address] [facility], [place], [address], 02/02/2024 19:51:42 01/25/20 24 01/26/2024 SEDIM ENTAT ION RATE- WESTE RGREN sedimentatio n rate-westerg narendra 9 mm/HR 0-40 normal Not Available [facility] ([facility]) [address] [facility], [place], [address], 02/02/2024 19:51:43 01/25/20 24 01/26/2024 C-JAMES CTIVE PROTE IN, QUANT C-reactive protein, quant 5 mg/L 0-10 normal Not Available [facility] ([facility]) [address] [facility], [place], [address], 02/02/2024 19:51:43 02/14/19 25 02/16/2024 LYME DISEA [...] is recom lucina d. Not Available [facility] ([facility]) [address], [place], [address], 02/16/2024 13:16:30 01/25/20 24 audio gram No observ ation record ed. [email or web address] Not Available 14:35:22 02/09/20 24 02/08/2024 MRI, brain + brain stem, w/wo contr ast [facility] Access ion Number : [id number] Patien t Name: Kanwal Espinosaa lissette Record Number : [id number] Date of : 1960 Date of Exam: 2023 Referr ing Physic alexia: Mane Zaman re [facility] [address] [place] [address] Exam: MR Brain (C-/C+ ) CPT 16164 Room Descri ption: [facility] Verio 3.0T HISTOR Y: Bilate ral sensor ineura l hearin g loss. TECHNI QUE: Multip lanar multis equenc e MRI of the brain (IAC) was obtain ed before and after the admini strati on of 16 cc of Dotare m. COMPAR MOIRA: No prior studie s are availa ble for compar moira at [facility] . [...] cerebe llopon victoriano angle cister n or statistics intern al audito ry canal. No abnorm [...] repres ent acute sinusi tis in the [facility] debi kelley Electr onical ly Signed By: Deshawn Greenfield MD [email or web address] [facility] ([facility]) [address] [facility], [place], [address], 02/15/2024 11:33:58 07/09/19 25 audio gram No observ ation record ed. BARCODE Not Available 2024 09:39:03 Result Notes Documentation Provider Name and Address Organization Details Recorded Time Mri, Brain + Brain Stem, W/wo Contrast : [facility] Accession Number: [id number] Patient Name: Kanwal Jimenez Date of : 1960 Date of Exam: 02-08-2024 Referring Physician: Ishmael Zaman [facility] [address] [facility] [address] [place] [address] Exam: MR Brain (C-/C+) CPT 49501 Room Description: [facility] Verio 3.0T HISTORY: Bilateral sensorineural hearing loss. TECHNIQUE: Multiplanar multisequence MRI of the brain (IAC) was obtained before and after the administration of 16 cc of Dotarem. COMPARISON: No prior studies are available for comparison at [facility]. FINDINGS: On the [...] Electronically Signed By: Deshawn ZAMAN MD [address] [facility] [place] [address], [place], [address], [facility] - [facility] 02/15/2024 11:33:58 Problems Name Problem SNOMED Code Status Onset Date Resolution Date Notes Provider Name and Address Organization Details Recorded Time Sensorine ural hearing loss of bilateral ears 249959651 Active 2021 Sensorine ural hearing loss, bilateral ; Note: Date Diagnosed : 11/01/2021 9:20 AM (H90.3) Not Available [facility] 4 02:36:19 Mixed conductiv e and sensorine ural hearing loss, bilateral 669533472 Active 2023 SOLITARIO JOHNSON MD [address] [facility],[place] [address], [place], [address] , [facility] - [facility] 4 13:40:48 Sensorine ural hearing loss of bilateral ears 632218226 Active 2024 ISHMAEL ZAMAN MD [address] [facility],[place] [address], [place], [address] , [facility] - [facility] 5 14:51:05 Mixed conductiv e and sensorine ural hearing loss, bilateral 686489143 Active 2024 HÉCTOR TRISTAN [address] [facility] [place] [address], [place], [address] , [facility] - [facility] 5 09:15:17 Bilateral tinnitus 98280223687 02 Active 2024 ISHMAEL ZAMAN MD [address] [facility],[place] [address], [place], [address] , [place] - [facility] 10:04:11 Problem Notes None recorded. Procedures Surgical History Date Name Laterality Status Provider Name and Address Organization Details Recorded Time 06/15/19 25 Comp Audio with Tymps - 70151 & 58746 completed TABBY BARAHONA, AUD [address] [facility],[address], [address], [place] - [facility] 06/14/2024 09:15:02 02/14/19 25 Telehealth completed ISHMAEL ZAMAN MD [address] [facility],[address], [address], [place] - [facility] 02/15/2024 11:33:49 01/25/20 24 Comp Audio with Tymps - 54613 & 85531 completed HARRY JOYNER, AUD [address] [facility],[address], [address], [place] - [facility] 01/25/2024 12:00:11 section completed Ivelisse Rust [place] - [facility] 06/14/2024 09:43:01 total replacement of hip completed Ivelisse Rust [place] - [facility] 06/14/2024 09:43:08 Imaging Results None recorded. [...] mg tablet 01/24 completed Medicati on ID: [id number] B rand Name: kranthi anderson (contrac eptive) Send Method: E-Prescr ibed Sub s Allowed: subs OK Medic ationGen ericName : norethin drone (contrac eptive) Not Available Not Available Not Available Vitals Date Recorded Body height Provider Name an d Address Organization Details Last Updated DateTime 02/15/2024 160.02 cm ISHMAEL ZAMAN MD [address] [place] [address], [address], [facility] 02/15/2024 11:32:21 Date Recorded Body height Body mass index (BMI) Body weight Provider Name and Address Organization Details Last Updated DateTime 01/25/2024 160.02 cm 31 kg/m2 70163.66 g Osiris Baltazar [place] [facility] 01/25/2024 11:18:48 Social History None recorded. Functional Status None recorded. Mental Status None recorded. Family History Nothing Reported. Medical History No medical history recorded. Gynecological HistoryNo gynecological history recorded. Obstetrics History GPAL:G 0 P 0 0 0 0 Past Encounters Encounter ID Performer Location Encounter Start Date Encounter Closed Date Diagnosis/Indication Diagnosis SNOMED-CT Code Diagnosis ICD10 Code Diagnosis IMO Codes Diagnosis Note [id number] SOLITARIO JOHNSON MD [facility] [address] [address] 11/02/2023 13:02:04 11/02/2023 13:55:29 Mixed conductive and sensorineural hearing loss, bilateral 624273817 H90.6 [id number] ISHMAEL ZAMAN MD [facility] [address] [address] 01/25/2024 11:07:08 01/25/2024 12:32:28 Sensorineural hearing loss of bilateral ears 813417161 H90.3 Audiometri c testing was repeated today [...] to bring to her audiologis t at [facility] audiology to ensure that her hearing [...] . Family his tory of hearing loss 390476178 Z82.2 [id number] HÉCTOR SCOTT [facility] [address] [place] [address] 01/25/2024 11:59:19 01/26/2024 07:44:56 Mixed conductive and sensorineural hearing loss, bilateral 220300439 H90.6 Right Ear:Modera tely-sever e through 1K Hz rising to a mild SNHL through 3K Hz sloping to a moderate HF HL with excellent speech discrimina tion.Type C tympanogra m.Left Ear:Severe rising to moderate MHL with excellent speech discrimina tion.Type C tympanogra m. Sensorineu ral hearing loss of bilateral ears 256194222 H90.3 [id number] ISHMAEL ZAMAN MD [facility] [address] [place] [address] 02/15/2024 11:32:04 02/15/2024 11:49:32 Sensorineural hearing loss of bilateral ears 397981502 H90.3 Family his tory of hearing loss 937920262 Z82.2 [id number] ISHMAEL ZAMAN MD [facility] [address] [place] [address] 06/14/2024 08:53:05 06/14/2024 10:22:07 Sensorineural hearing loss of bilateral ears 470619328 H90.3 Family his tory of hearing loss 753682351 Z82.2 [id number] Bilateral tinnitus 65415 21527 102 H93.13 [id number] HÉCTOR TRISTAN [facility] [address] [address] 06/14/2024 09:14:50 06/17/2024 01:53:26 Mixed conductive and sensorineural hearing loss, bilateral 386053286 H90.6 [id number] Audiologic al evaluation results: Right ear: Moderately [...] [place]IC[place] B[place] Kanwal Jimenez [id number] Kanwal Jimenez 07/06/2024 2 [place] [id number] Kanwal Jimenez [id number] Kanwal Jimenez Notes Date Note Type [...] October 2023 with updated audiometric testing from [facility] audiology showing a significant change in the right sensorineural thresholds, with significant worsening in speech discrimination. Patient reports maternal family history of childhood onset hearing loss, her mother had surgery on her ear but it did not help. Patient's brother has hearing loss as well which started in his 50s.Patient reports that she has since obtained binaural amplification from [facility] audiology. Overall she seems to be doing well with them, though she feels that on some days her general hearing is not as good as other days. She does not notice a unilateral fluctuation in hearing, only a general sense that her hearing has good days and bad days. No dizziness or balance disturbance at all. ISHMAEL ZAMAN MD [address] [facility] [place] [address], [place], [address], [facility] 01/25/2024 12:36:25 02/15/2024 text/html Patient with [...] second degree relatives. ISHMAEL ZAMAN MD [address] [facility] [place],[facility] [address], [place], [address], [facility] 02/15/2024 11:42:20 06/14/2024 text/html 64-year-old female with apparently progressive sensorineural hearing loss. MRI and laboratory testing negative. Patient does have a very strong family history of early onset and progressive sensorineural hearing loss in 6 or 7 of her first and second-degree relatives. Using binaural amplification managed through [facility] audiology. She comes 4-month follow-up audiogram to assess for progression. ISHMAEL ZAMAN MD [address], [place], [address], [facility] 06/14/2024 10:08:56 OBGyn Episode No OBEpisode recorded.
[2024-11-14 10:54] LABS: MANUAL DIFF FLAG NO
[2024-11-14 11:01] LABS: Hematocrit 41.5 % (37.0-47.0); Hemoglobin 13.5 g/dl (12.0-16.0); Imm Gran Abs Auto 0.01 X10*3/uL (0.00-0.03); Imm Gran Pct Auto 0.2 % (0.0-0.4); Lymphocytes Absolute Auto 1.5 X10*3/uL (1.2-4.9); Mean Corpuscular HGB Conc 32.5 g/dl (31.0-35.0); Mean Corpuscular Hemoglobin 30.7 pg (27.0-33.0); Mean Corpuscular Volume 94.3 fL (80.0-98.0); NRBC Abs Auto 0.000 X10*3/uL (0.0-0.012); NRBC Pct Auto 0.0 /100WBC (0.0-0.2); Platelet Count 280 X10*3/uL (160-400); Red Blood Count 4.40 X10*6/uL (4.20-5.50); White Blood Count 4.9 X10*3/uL (4.8-10.8)
[2024-11-14 11:08] LABS: Hemoglobin A1C 123.0767 umol/L; Total Hemoglobin (HGBA1C) 3537.4571 umol/L
[2024-11-14 11:12] LABS: Alanine Aminotransferase 28 U/L (0-31); Albumin Level 4.5 g/dL (3.5-5.0); Alkaline Phosphatase 97 U/L (39-117); Anion Gap 10 (12-20); Aspartate Amino Transferase 31 U/L (5-31); Blood Urea Nitrogen 20 mg/dL (9-16); Calcium 9.8 mg/dL (8.4-10.2); Carbon Dioxide 30 mmol/L (22-29); Chloride 104 mmol/L (96-108); Cholesterol 241 mg/dL (<200); Estimated Glomerular Filt Rate > 60; HDL Cholesterol 88 mg/dL (>40); Potassium 5.4 mmol/L (3.3-5.1); Sodium 139 mmol/L (135-145); Total Protein 7.5 g/dL (6.5-8.0); Triglycerides 91 mg/dL (<150)
== END 2024-11-14 09:08 | disposition home or self-care (01) ==
LOC: HO.10HDL 09:07
PROVIDERS: Visit Provider Physician Assistant
DX: Z13.6 Encounter for screening for cardiovascular disorders (principal); Z13.1 Encounter for screening for diabetes mellitus; Z13.220 Encounter for screening for lipoid disorders; M25.571 Pain in right ankle and joints of right foot; J45.909 Unspecified asthma, uncomplicated
CPT/HCPCS: 36415; 80048; 80061; 80076; 83036; 85025

== ENCOUNTER 2024-11-15 08:02 | Outpatient (RCR) | payer MEDICARE, SELFPAY ==
--- NOTE | 2024-07-19 12:00 | MHC.PT.EP ---
[facility] [place] [facility] [place] [facility] [place] [facility] [address] Tod Colbert [address] [phone] F: [phone] F: [phone] F: [phone] F: [phone] Physical Therapy Plan of Care Date of Evaluation: 07/15/24 Date of Surgery: N/A Diagnosis: acute right ankle pain, right knee pain (RL) Assessment: pt is a 64 y/o female presenting to physical therapy w/ referring diagnosis of acute right ankle pain, right knee pain. Her signs and symptoms seem consistent w/ MCL sprain and poor talocrural DF. Impairments include pain, decreased range of motion, decreased strength, impaired functional mobility, impaired postural awareness, and altered ambulation mechanics. pt is a good candidate for skilled PT due to age, potential remediation of impairments, typical disease/condition progression and prognosis, comorbidities, and motivation. pt would benefit from skilled PT intervention to provide a tailored strengthening and stretching exercise program, functional training, gait training, postural re-training, neuromuscular re-education, modalities as needed for pain, equipment safety demonstration. Frequency and Duration: The patient will be seen 2x/wk for 4 wks Short Term Goals: pt will be I w/ HEP to promote self-management of condition. pt will improve B ankle DF by at least 15* to promote ease in anterior tibial translation w/ ambulation and stairs. pt will demo a 4 eccentric step down w/o valgus or excessive pronation tendencies B to reduce medial chain stress w/ curb. Corporate Licensed Broker Goals: pt will report a statistically significant improvement in self-reported outcome measure, LEFI, to promote return to PLOF. pt will ascend/descend 12 stairs using railing and reciprocal pattern reporting <3/10 knee and ankle pain to promote ease w/ accessing basement for laundry. Treatment Plan: Modalities to reduce pain, spasms and effusion. Manual therapy to restore motion and function. Therapeutic exercise to improve strength and flexibility. Neuromuscular re-education for posture and balance. Therapeutic activities to return to functional activities of daily living. Electronically signed by: Liseth Marinelli PT, DPT Please sign and return to therapist. Thank you for your referral.
--- NOTE | 2024-11-15 11:22 | MHC.PT.DC ---
[facility] [place] [facility] [place] [facility] [place] [facility] [address] Tod Colbert [address] [phone] F: [phone] F: [phone] F: [phone] F: [phone] Physical Therapy Discharge Report Diagnosis: acute right ankle pain, right knee pain (RL) Date of Surgery: N/A Date of Evaluation: 07/15/24 Date of Discharge: 11/15/24 Treatments to Date: 19 Cancellations to Date: 6 No Shows to Date: 0 Discharge Status: Improved Function Independent with HEP Discharge Summary: The patient overall has been reporting less bilateral knee pain. She is independent with her home exercise program today which we reviewed. She was distributed an updated handout and provided with next level bands. She was educated in how to apply kinesiotape for patellar support. At this time, she is discharged from this plan of care. Electronically signed by: Liseth Marinelli PT, DPT Please sign and return to therapist. Thank you for your referral.
== END 2024-11-15 11:22 | disposition home or self-care (01) ==
LOC: HO.PT 08:02
PROVIDERS: PCP Physician Assistant; Visit Provider Physician Assistant
DX: M25.571 Pain in right ankle and joints of right foot (principal); M25.561 Pain in right knee
CPT/HCPCS: 97110; 97116; 97140; 97162; 97530

== ENCOUNTER 2024-11-23 09:24 | Outpatient (REF) | payer MEDICARE, SELFPAY ==
--- OUTSIDE RECORDS SUMMARY | 2024-11-23 10:36 | XMS_ITS | Patient Health Record ---
Author Organization [facility] Address [address] [place] [address] Care Team Providers Care Deputy Chief Sheriff Name Role Phone Diogo (RETIRED) Ismael MCELROY Primary Care Provide r Unavailable Grey Delgado Unavailable [phone] Reason For Referral No Information Medications Medication SIG (Take, Route, Frequency, Duration) Notes Start Date End Date Status Albuterol 02/10/2024 02/10/2024 Active PriLOSEC Active Problems Problem Type SNOMED Code ICD Code Onset Dates Problem Status W/U Status Risk Notes Problem Esophageal reflux (076767547) Esophageal reflux (530.81) Active confirmed Plan Of Treatment Pending Test Test Name Order Date XR BARIUM SWALLOW-ESOPHAGUS 02/12/2011 XR GI SERIES 02/12/2011 Insurance Providers Payer Name Payer Address Payer Phone Subscriber Number Group Number Insured Name Patient Relationship to Insured Coverage Start Date [facility]age End Date [facility] [address] [place] [id number] [phone] [id number] IGRO TYLER Self - patient is the insured Medical (General) History Medical History History ICD Code Asthma GERD Denies [place],DM,CVA,Lung disease,renal dise ase Surgical History Surgery Date(Month/Year)
--- OUTSIDE RECORDS SUMMARY | 2024-11-23 10:36 | XMS_ITS | Clinical Summary ---
Author Organization [facility] Address [address] [facility] [address] [place] [address] Phone Care Team Providers Care Data Collection Associate Name Role Phone Ismael Lind MD Primary [...] Most Recently Relevant to Health Maintenance [place] [address] [place] [address] [place] [place] [address] [place] [address] [place] [address] HMO POS [facility] [place] [address] [place] [address] HMO POS [facility] HMO POS Member Subscriber Plan / Payer (Ef fective 2013-Present) Name:Kanwal Jimenez Relation to Subscriber:Self Name:JimenezKanwal villalba Payer ID:[id number] (NAIC) Type:HMO Address: [address] [place], [place] [facility] HMO POS Member Subscriber Plan / Payer (Ef fective 2013-Present) Name:Kanwal Jimenez Relation to Subscriber:Self Name:Kanwal Jimenez Payer ID:[id number] (NAIC) Type:HMO Address: [address] [place], [place] [address] HMO POS Member Subscriber Plan / Payer (Ef fective 2013-Present) Name:Kanwal Jimenez Relation to Subscriber:Self Name:Kanwal Jimenez Payer ID:[id number] (NAIC) Type:HMO Address: [address] [place], [place] [address] HMO POS Care Teams Data Collection Associate Relationship Specialty Start Date End Date Ismael Lind MD [address] [place] [address] [place] [address] PCP - General Internal Medicine 04/15/18 Additional Source Comments The information contained in this document represents components of the legal health record. It is not the complete legal health record.[facility]
--- OUTSIDE RECORDS SUMMARY | 2024-11-23 10:36 | XMS_ITS | Data Portability ---
Author Organization [place] [facility], Allergy Address [address] [place] [address] Care Team Providers Care Medication Aide Name Role Phone REMI SEGAL Primary Care Provider [phone] Assessment Encounter Date Assessment Date Assessment LastModified [...] she should continue to work with her dish room worker at [facility] audiology to ensure that her hearing [...] negative, so I will order this test. [email or web address] Not available 02/15/2024 11:38:16 06/14/2024 06/14/2024 Patient [...] She should continue to work with her dish room worker at [facility] audiology to ensure that her hearing [...] future. Recommend follow-up audiogram in 6 months. [email or web address] Not available 06/14/2024 10:08:42 Plan of Treatment [...] 19:51:43 HbA1c (hemoglob in A1c), blood 2023 [facility] (Centralized Electronic Ordering - All Locations), Patient Can Go To The Location Of Their Choice, [address] 02/02/2024 19:51:41 Referral None recorded. Procedures None recorded. Surgeries None recorded. Imaging MRI, brain + internal auditory canal, w/wo contrast - MRI, BRAIN + INTERNAL AUDITORY CANAL, W/WO CONTRAST 2023 [facility] ([facility]), [address] [place], [address], 02/09/2024 14:28:52 Medication Orders None recorded. Patient TargetsNo targets recorded. Patient InstructionsNo instructions recorded. Reason for Referral None Reported. Results Created Date Observation Date Name Description Value Unit Range Abnormal Flag Note LastModifiedBy Organization Detail LastModifiedTime 01/25/2001/25/2024 CBC WITH DIFFE RENTI AL/PL ATELE T WBC 9.0 x10e3 /uL 3.4-10 .8 normal Not Available [facility] ([facility]) [address] [facility], [place], [address], 02/02/2024 19:51:40 01/25/2001/25/2024 CBC WITH DIFFE RENTI AL/PL ATELE T RBC 4.45 x10e6 /uL 3.77-5 .28 normal Not Available [facility] ([facility]) [address] [place], [address], 02/02/2024 19:51:40 01/25/20 24 01/25/2024 CBC WITH DIFFE RENTI AL/PL ATELE T hemoglobin 14.5 g/dL 11.1-1 5.9 normal Not Available [facility] ([facility]) [address] [place], [address], 02/02/2024 19:51:40 01/25/2001/25/2024 CBC WITH DIFFE RENTI AL/PL ATELE T hematocrit 43.2 % 34.0-4 6.6 normal Not Available [facility] ([facility]) [address] [place], [address], 02/02/2024 19:51:40 01/25/20 24 01/25/2024 CBC WITH DIFFE RENTI AL/PL ATELE T MCV 97 fL 79-97 normal Not Available [facility] ([facility]) [address] [place], [address], 02/02/2024 19:51:40 01/25/20 24 01/25/2024 CBC WITH DIFFE RENTI AL/PL ATELE T MCH 32.6 pg 26.6-3 3.0 normal Not Available [facility] ([facility]) [address] [place], [address], 02/02/2024 19:51:40 01/25/20 24 01/25/2024 CBC WITH DIFFE RENTI AL/PL ATELE T MCHC 33.6 g/dL 31.5-3 5.7 normal Not Available [facility] ([facility]) [address] [place], [address], 02/02/2024 19:51:40 01/25/20 24 01/25/2024 CBC WITH DIFFE RENTI AL/PL ATELE T RDW 12.0 % 11.7-1 5.4 Not Available [facility] ([facility]) [address] [facility], [place], [address], 02/02/2024 19:51:40 01/25/20 24 01/25/2024 CBC WITH DIFFE RENTI AL/PL ATELE T platelets 267 x10e3 /uL 150-45 0 normal Not Available [facility] ([facility]) [address] [facility], [place], [address], 02/02/2024 19:51:40 01/25/20 24 01/25/2024 CBC WITH DIFFE RENTI AL/PL ATELE T neutrophils 72 % not estab. normal Not Available [facility] ([facility]) [address] [facility], [place], [address], 02/02/2024 19:51:40 01/25/20 24 01/25/2024 CBC WITH DIFFE RENTI AL/PL ATELE T lymphs 18 % not estab. normal Not Available [facility] ([facility]) [address] [facility], [place], [address], 02/02/2024 19:51:40 01/25/20 24 01/25/2024 CBC WITH DIFFE RENTI AL/PL ATELE T monocytes 7 % not estab. normal Not Available [facility] ([facility]) [address] [facility], [place], [address], 02/02/2024 19:51:40 01/25/20 24 01/25/2024 CBC WITH DIFFE RENTI AL/PL ATELE T eos 3 % not estab. normal Not Available [facility] ([facility]) [address] [facility], [place], [address], 02/02/2024 19:51:40 01/25/20 24 01/25/2024 CBC WITH DIFFE RENTI AL/PL ATELE T basos 0 % not estab. normal Not Available [facility] ([facility]) [address] [facility], [place], [address], 02/02/2024 19:51:40 01/25/20 24 01/25/2024 CBC WITH DIFFE RENTI AL/PL ATELE T immature cells ANIMATION CAMERA OPERATOR Not Available [facility] ([facility]) [address] [facility], [place], [address], 02/02/2024 19:51:40 01/25/20 24 01/25/2024 CBC WITH DIFFE RENTI AL/PL ATELE T neutrophils (absolute) 6.4 x10e3 /uL 1.4-7. 0 normal Not Available [facility] ([facility]) [address] [facility], [place], [address], 02/02/2024 19:51:40 01/25/20 24 01/25/2024 CBC WITH DIFFE RENTI AL/PL ATELE T lymphs (absolute) 1.6 x10e3 /uL 0.7-3. 1 normal Not Available [facility] ([facility]) [address] [place], [address], 02/02/2024 19:51:40 01/25/20 24 01/25/2024 CBC WITH DIFFE RENTI AL/PL ATELE T monocytes(ab solute) 0.7 x10e3 /uL 0.1-0. 9 normal Not Available [facility] ([facility]) [address] [facility], [place], [address], 02/02/2024 19:51:40 01/25/20 24 01/25/2024 CBC WITH DIFFE RENTI AL/PL ATELE T eos (absolute) 0.3 x10e3 /uL 0.0-0. 4 normal Not Available [facility] ([facility]) [address] [place], [address], 02/02/2024 19:51:40 01/25/20 24 01/25/2024 CBC WITH DIFFE RENTI AL/PL ATELE T baso (absolute) 0.0 x10e3 /uL 0.0-0. 2 normal Not Available [facility] ([facility]) [address] [facility], [place], [address], 02/02/2024 19:51:40 01/25/20 24 01/25/2024 CBC WITH DIFFE RENTI AL/PL ATELE T immature granulocytes 0 % not estab. Not Available [facility] ([facility]) [address] [facility], [place], [address], 02/02/2024 19:51:40 01/25/20 24 01/25/2024 CBC WITH DIFFE RENTI AL/PL ATELE T immature grans (abs) 0.0 x10e3 /uL 0.0-0. 1 Not Available [facility] ([facility]) [address] [facility], [place], [address], 02/02/2024 19:51:40 01/25/20 24 01/25/2024 CBC WITH DIFFE RENTI AL/PL ATELE T NRBC ANIMATION CAMERA OPERATOR Not Available [facility] ([facility]) [address] [facility], [place], [address], 02/02/2024 19:51:40 01/25/20 24 01/25/2024 CBC WITH DIFFE RENTI AL/PL ATELE T hematology comments: ANIMATION CAMERA OPERATOR Not Available [facility] ([facility]) [address] [facility], [place], [address], 02/02/2024 19:51:40 01/25/20 24 01/27/2024 A1C W/GLY [...] (ADA) Not Available [facility] [address] [place], [address], 02/02/2024 19:51:41 01/25/20 24 01/27/2024 A1C W/GLY COMAR K(R) REFLE X estimated average glucose 111 mg/dL Not Available [facility] [address] [facility], [place], [address], 02/02/2024 19:51:41 01/25/2001/27/2024 A1C W/GLY COMAR K(R) [...] s. Not Available [facility] [address] [facility], [place], [address], 02/02/2024 19:51:41 01/25/20 24 01/26/2024 IVELISSE+R F QN IVELISSE direct NEGATI VE negati ve Not Available [facility] ([facility]) [address] [facility], [place], [address], 02/02/2024 19:51:41 01/25/20 24 01/26/2024 IVELISSE+R F QN rheumatoid factor (rf) 11.7 IU/mL <14.0 normal Not Available [facility] ([facility]) [address] [facility], [place], [address], 02/02/2024 19:51:41 01/25/20 24 02/02/2024 THYRO ID STIMU LATIN G HORMO NE TSH-icma 1.4 uu/mL Refer ence Range : Non-P regna nt Adult 0.450 -4.50 0 Pregn sotero First Trime ster 0.100 -4.00 0 Secon d Trime ster 0.200 -4.00 0 Third Trime ster 0.300 -4.50 0 Not Available [facility] [address] [facility], [place], [address], 02/02/2024 19:51:42 01/25/20 24 01/26/2024 SYPHI LIS RPR W/REF FANNY RPR NON REACTI VE non reacti ve Not Available [facility] ([facility]) [address] [facility], [place], [address], 02/02/2024 19:51:42 01/25/20 24 01/26/2024 SEDIM ENTAT ION RATE- WESTE RGREN sedimentatio n rate-westerg narendra 9 mm/HR 0-40 normal Not Available [facility] ([facility]) [address] [facility], [place], [address], 02/02/2024 19:51:43 01/25/20 24 01/26/2024 C-JAMES CTIVE PROTE IN, QUANT C-reactive protein, quant 5 mg/L 0-10 normal Not Available [facility] ([facility]) [address] [facility], [place], [address], 02/02/2024 19:51:43 02/14/19 25 02/16/2024 LYME DISEA SE SEROL OGY W/REF FANNY lyme total antibody rosa Negati ve negati ve Lyme antib odies not detec graham. Refle x testi ng is not indic ated. No labor atory evide nce of infec tion with B. burgd orfer i (Lyme disea se). Negat ana maría resul ts may occur in patie nts recen tly infec grhaam (less than or equal to 14 days) with B. burgd orfer i. If recen t infec tion is suspe cted, repea t testi ng on a new sampl e colle cted in 7 to 14 days is recom lucina d. Not Available [facility] ([facility]) [address], [place], [address], 02/16/2024 13:16:30 01/25/20 24 audio gram No observ ation record ed. [email or web address] Not Available 14:35:22 02/09/20 24 02/08/2024 MRI, brain + brain stem, w/wo contr ast [facility] Access ion Number : [id number] Patien t Name: Kanwal Espinosaa lissette Record Number : [id number] Date of : 1960 Date of Exam: 2023 Referr ing Physic alexia: Mane Zaman re Ear Nose [address] [place] [address] Exam: MR Brain (C-/C+ ) CPT 32582 Room Descri ption: [facility] Verio 3.0T HISTOR Y: Bilate ral sensor ineura l hearin g loss. TECHNI QUE: Multip lanar multis equenc e MRI of the brain (IAC) was obtain ed before and after the admini strati on of 16 cc of Dotare m. COMPAR MOIRA: No prior studie s are availa ble for compar moira at [facility] . [...] cerebe llopon victoriano angle cister n or production intern al audito ry canal. No abnorm [...] repres ent acute [facility]i [facility] debi kelley Electr onical ly Signed By: Deshawn Greenfield MD [email or web address] [facility] ([facility]) [address] [facility], [place], [address], 02/15/2024 11:33:58 07/09/19 25 audio gram No observ ation record ed. BARCODE Not Available 2024 09:39:03 Result Notes Documentation Provider Name and Address Organization Details Recorded Time Mri, Brain + Brain Stem, W/wo Contrast : [facility] Accession Number: [id number] Patient Name: Kanwal Jimenez Date of : 1960 Date of Exam: 02-08-2024 Referring Physician: Ishmael Zaman Ear N[facility] [address] [facility] [address] [place] [address] Exam: MR Brain (C-/C+) CPT 94377 Room Description: [facility] Verio 3.0T HISTORY: Bilateral sensorineural hearing loss. TECHNIQUE: Multiplanar multisequence MRI of the brain (IAC) was obtained before and after the administration of 16 cc of Dotarem. COMPARISON: No prior studies are available for comparison at [facility]. FINDINGS: On [...] Electronically Signed By: Deshawn ZAMAN MD [address] [facility] [address], [place], [address], [facility] - [facility] [place] 02/15/2024 11:33:58 Problems Name Problem SNOMED Code Status Onset Date Resolution Date Notes Provider Name and Address Organization Details Recorded Time Sensorine ural hearing loss of bilateral ears 739014028 Active 2021 Sensorine ural hearing loss, bilateral ; Note: Date Diagnosed : 11/01/2021 9:20 AM (H90.3) Not Available [facility] 4 02:36:19 Mixed conductiv e and sensorine ural hearing loss, bilateral 039592792 Active 2023 SOLITARIO JOHNSON MD [address] [facility],[place] [address], [place], [address] , [facility] - [facility] 4 13:40:48 Sensorine ural hearing loss of bilateral ears 924814232 Active 2024 ISHMAEL ZAMAN MD [address] [facility],[place] [address], [place], [address] , [facility] - [facility] 5 14:51:05 Mixed conductiv e and sensorine ural hearing loss, bilateral 233746649 Active 2024 HÉCTOR TRISTAN [address] [facility],[place] [address], [place], [address] , [facility] - [facility] 5 09:15:17 Bilateral tinnitus 67495662430 02 Active 2024 ISHMAEL ZAMAN MD [address] [facility],[place] [address], [place], [address] , [place] [facility] 10:04:11 Problem Notes None recorded. Procedures Surgical History Date Name Laterality Status Provider Name and Address Organization Details Recorded Time 06/15/19 25 Comp Audio with Tymps - 14503 & 62426 completed TABBY BARAHONA, AUD [address] [facility],[address], [address], [place] - [facility] 06/14/2024 09:15:02 02/14/19 25 Telehealth completed ISHMAEL ZAMAN MD [address] [facility],[address], [address], [place] - [facility] 02/15/2024 11:33:49 01/25/20 24 Comp Audio with Tymps - 96060 & 10656 completed HARRY JOYNER, AUD [address] [facility],[address], [address], [place] - [facility] 01/25/2024 12:00:11 section completed Ivelisse Rust [place] - [facility] 06/14/2024 09:43:01 total replacement of hip completed Ivelisse Rust [place] [facility] 06/14/2024 09:43:08 Imaging Results None recorded. Procedure [...] mg tablet 01/24 completed Medicati on ID: [id number] B rand Name: kranthi anderson (contrac eptive) Send Method: E-Prescr ibed Sub s Allowed: subs OK Medic ationGen ericName : norethin drone (contrac eptive) Not Available Not Available Not Available Vitals Date Recorded Body height Provider Name an d Address Organization Details Last Updated DateTime 02/15/2024 160.02 cm ISHMAEL ZAMAN MD [address] [place] [address], [address], [facility] 02/15/2024 11:32:21 Date Recorded Body height Body mass index (BMI) Body weight Provider Name and Address Organization Details Last Updated DateTime 01/25/2024 160.02 cm 31 kg/m2 71374.66 g Osiris Baltazar [place] [facility] 01/25/2024 11:18:48 Social History None recorded. Functional Status None recorded. Mental Status None recorded. Family History Nothing Reported. Medical History No medical history recorded. Gynecological HistoryNo gynecological history recorded. Obstetrics History GPAL:G 0 P 0 0 0 0 Past Encounters Encounter ID Performer Location Encounter Start Date Encounter Closed Date Diagnosis/Indication Diagnosis SNOMED-CT Code Diagnosis ICD10 Code Diagnosis IMO Codes Diagnosis Note [id number] SOLITARIO JOHNSON MD [facility] [address] [address] 11/02/2023 13:02:04 11/02/2023 13:55:29 Mixed conductive and sensorineural hearing loss, bilateral 834768935 H90.6 [id number] ISHMAEL ZAMAN MD [facility] [address] [address] 01/25/2024 11:07:08 01/25/2024 12:32:28 Sensorineural hearing loss of bilateral ears 807815477 H90.3 Audiometri c testing was repeated today [...] to bring to her audiologis t at [facility] audiology to ensure that her hearing [...] . Family his tory of hearing loss 528197986 Z82.2 [id number] HÉCTOR SCOTT [facility] [address] [place] [address] 01/25/2024 11:59:19 01/26/2024 07:44:56 Mixed conductive and sensorineural hearing loss, bilateral 398001741 H90.6 Right Ear:Modera tely-sever e through 1K Hz rising to a mild SNHL through 3K Hz sloping to a moderate HF HL with excellent speech discrimina tion.Type C tympanogra m.Left Ear:Severe rising to moderate MHL with excellent speech discrimina tion.Type C tympanogra m. Sensorineu ral hearing loss of bilateral ears 006211243 H90.3 [id number] ISHMAEL ZAMAN MD [facility] [address] [facility] [place] [address] 02/15/2024 11:32:04 02/15/2024 11:49:32 Sensorineural hearing loss of bilateral ears 706211095 H90.3 Family his tory of hearing loss 261342829 Z82.2 [id number] ISHMAEL ZAMAN MD [facility] [address] [facility] [place] [address] 06/14/2024 08:53:05 06/14/2024 10:22:07 Sensorineural hearing loss of bilateral ears 161043333 H90.3 Family his tory of hearing loss 930979477 Z82.2 [id number] Bilateral tinnitus 92673 43188 102 H93.13 [id number] HÉCTOR TRISTAN [facility] [address] [address] 06/14/2024 09:14:50 06/17/2024 01:53:26 Mixed conductive and sensorineural hearing loss, bilateral 387854385 H90.6 [id number] Audiologic al evaluation results: Right ear: Moderately [...] [place] Kanwal Jimenez [id number] Kanwal Jimenez 07/06/2024 2 [place]) [id number] Kanwal Jimenez [id number] Kanwal Jimenez Notes Date Note Type [...] October 2023 with updated audiometric testing from [facility] audiology showing a significant change in the right sensorineural thresholds, with significant worsening in speech discrimination. Patient reports maternal family history of childhood onset hearing loss, her mother had surgery on her ear but it did not help. Patient's brother has hearing loss as well which started in his 50s.Patient reports that she has since obtained binaural amplification from [facility] audiology. Overall she seems to be doing well with them, though she feels that on some days her general hearing is not as good as other days. She does not notice a unilateral fluctuation in hearing, only a general sense that her hearing has good days and bad days. No dizziness or balance disturbance at all. ISHMAEL ZAMAN MD [address] [facility],[place] [address], [place], [address], [facility] 01/25/2024 12:36:25 02/15/2024 text/html Patient with bilateral, [...] second degree relatives. ISHMAEL ZAMAN MD [address] [facility], [place], [address], [facility] 02/15/2024 11:42:20 06/14/2024 text/html 64-year-old female with apparently progressive sensorineural hearing loss. MRI and laboratory testing negative. Patient does have a very strong family history of early onset and progressive sensorineural hearing loss in 6 or 7 of her first and second-degree relatives. Using binaural amplification managed through [facility] audiology. She comes 4-month follow-up audiogram to assess for progression. ISHMAEL ZAMAN MD [address], [place], [address], [facility] 06/14/2024 10:08:56 OBGyn Episode No OBEpisode recorded.
[2024-11-23 10:46] LABS: Potassium 4.7 mmol/L (3.3-5.1)
== END 2024-11-23 09:25 | disposition home or self-care (01) ==
LOC: HO.10HDL 09:24
PROVIDERS: Visit Provider Student in an Organized Health Care Education/Training Program
DX: E87.5 Hyperkalemia (principal)
CPT/HCPCS: 36415; 84132

== ENCOUNTER 2024-11-23 20:45 | Emergency (ER) | payer MEDICARE, SELFPAY ==
--- NOTE | ~2024-11-23 | XR_ITS ---
CLINICAL HISTORY: CP 1 view chest x-ray Comparison: None provided Findings: Ill-defined medial right mid lung opacity. Heart size is normal. No acute fracture. Hiatal hernia suggested. IMPRESSION: Possible right mid lung infiltrate. Follow-up recommended. This document has been electronically signed by: Paul Barba MD on 11/23/2024 21:47:25
--- NOTE | 2024-11-23 20:48 | ECG_ITS ---
Test Reason : cp Blood Pressure : */* mmHG Vent. Rate : 111 BPM Atrial Rate : 111 BPM P-R Int : 126 ms QRS Dur : 70 ms QT Int : 316 ms P-R-T Axes : 62 33 19 degrees QTcB Int : 429 ms Sinus tachycardia Nonspecific ST and T wave abnormality Abnormal ECG When compared with ECG of 15-May-2017 15:32, Nonspecific T wave abnormality now evident in Inferior leads Referred By: Generic ED Physician Electronically Signed By: Quentin Nesbitt
[2024-11-23 20:49] VITALS: BP 147/93; PULSE 108; RESP 16; TEMP 36.9; O2SAT 98; BMI 33.2
[2024-11-23 21:04] LABS: MANUAL DIFF FLAG NO
[2024-11-23 21:05] LABS: Hematocrit 40.8 % (37.0-47.0); Hemoglobin 13.6 g/dl (12.0-16.0); Imm Gran Abs Auto 0.03 X10*3/uL (0.00-0.03); Imm Gran Pct Auto 0.2 % (0.0-0.4); Lymphocytes Absolute Auto 1.1 X10*3/uL (1.2-4.9); Mean Corpuscular HGB Conc 33.3 g/dl (31.0-35.0); Mean Corpuscular Hemoglobin 30.8 pg (27.0-33.0); Mean Corpuscular Volume 92.3 fL (80.0-98.0); NRBC Abs Auto 0.000 X10*3/uL (0.0-0.012); NRBC Pct Auto 0.0 /100WBC (0.0-0.2); Platelet Count 249 X10*3/uL (160-400); Red Blood Count 4.42 X10*6/uL (4.20-5.50); White Blood Count 15.1 X10*3/uL (4.8-10.8)
[2024-11-23 21:18] LABS: Alanine Aminotransferase 28 U/L (0-31); Albumin Level 4.6 g/dL (3.5-5.0); Alkaline Phosphatase 100 U/L (39-117); Anion Gap 12 (12-20); Aspartate Amino Transferase 27 U/L (5-31); Blood Urea Nitrogen 12 mg/dL (9-16); Calcium 10.0 mg/dL (8.4-10.2); Carbon Dioxide 24 mmol/L (22-29); Chloride 106 mmol/L (96-108); Creatinine Clr Calc Pharmacy 70.6; Estimated Glomerular Filt Rate > 60; Magnesium 2.2 mg/dL (1.6-2.6); Potassium 4.4 mmol/L (3.3-5.1); Sodium 138 mmol/L (135-145); Total Protein 7.5 g/dL (6.5-8.0)
[2024-11-23 21:26] LABS: Troponin-I High Sensitivity < 2.7 ng/L (<3.5-17.0)
--- OUTSIDE RECORDS SUMMARY | 2024-11-24 01:06 | XMS_ITS | Clinical Summary ---
Author Organization [facility] Address [address] [facility] [address] [place] [address] Phone Care Team Providers Care Composition Weatherboard Applier Name Role Phone Ismael Lind MD Primary [...] Most Recently Relevant to Health Maintenance [place] [address] [address] [place] [address] [place] [address] [place] [address] [place] [address] HMO POS [facility] [place] [address] [place] [address] HMO POS [facility] HMO POS Member Subscriber Plan / Payer (Ef fective 2013-Present) Name:Kanwal Jimenez Relation to Subscriber:Self Name:JimenezKanwal villalba Payer ID:[id number] (NAIC) Type:HMO Address: [address] [place], [place] [facility] HMO POS Member Subscriber Plan / Payer (Ef fective 2013-Present) Name:Kanwal Jimenez Relation to Subscriber:Self Name:Kanwal Jimenez Payer ID:[id number] (NAIC) Type:HMO Address: [address] [place], [place] [address] HMO POS Member Subscriber Plan / Payer (Ef fective 2013-Present) Name:Kanwal Jimenez Relation to Subscriber:Self Name:Kanwal Jimenez Payer ID:[id number] (NAIC) Type:HMO Address: [address] [place], [place] [address] HMO POS Care Teams Composition Weatherboard Applier Relationship Specialty Start Date End Date Ismael Lind MD [address] [place] [address] [place] [address] PCP - General Internal Medicine 04/15/18 Additional Source Comments The information contained in this document represents components of the legal health record. It is not the complete legal health record.[facility]
--- OUTSIDE RECORDS SUMMARY | 2024-11-24 01:07 | XMS_ITS | Patient Health Record ---
Author Organization [facility] Address [address] [place] [address] Care Team Providers Care Spindle Repairer Name Role Phone Diogo (RETIRED) Ismael MCELRYO Primary Care Provide r Unavailable Grey Delgado Unavailable [phone] Reason For Referral No Information Medications Medication SIG (Take, Route, Frequency, Duration) Notes Start Date End Date Status Albuterol 02/10/2024 02/10/2024 Active PriLOSEC Active Problems Problem Type SNOMED Code ICD Code Onset Dates Problem Status W/U Status Risk Notes Problem Esophageal reflux (383274930) Esophageal reflux (530.81) Active confirmed Plan Of Treatment Pending Test Test Name Order Date XR BARIUM SWALLOW-ESOPHAGUS 02/12/2011 XR GI SERIES 02/12/2011 Insurance Providers Payer Name Payer Address Payer Phone Subscriber Number Group Number Insured Name Patient Relationship to Insured Coverage Start Date Coverage End Date [facility] [address] [place] [id number] [phone] [id number] [address] TYLER Self - patient is the insured Medical (General) History Medical History History ICD Code Asthma GERD Denies IA,DM,CVA,Lung disease,renal dise ase Surgical History Surgery Date(Month/Year)
--- NOTE | 2024-11-24 01:08 | ED_ITS ---
HPI - Chest Pain General Chief Complaint: Chest Pain Stated Complaint: chest and back pain Time Seen by Provider: 11/24/24 01:03 Source: patient Mode of arrival: ambulatory Limitations: no limitations History of Present Illness ED Provider: HPI narrative: 64-year-old woman with a history of asthma presenting with midsternal discomfort and pain around her shoulder blades, positional, she had an episode of vomiting, she also had what she felt like it was not asthma exacerbation and prior to come into the emergency department she used albuterol, nonsmoker, has had no cough, no hemoptysis, no recent surgeries no history of PE. She states she has vertigo and so she had an episode of vertigo and when she was thrown up she almost passed out, states feels better now. Related Data Home Medications ?Medication ?Instructions ?Recorded ?Confirmed multivitamin 1 tab PO DAILY 11/14/2408/03 Previous Rx's ?Medication ?Instructions ?Recorded albuterol sulfate 2.5 mg/3 mL 2.5 mg (3 mL) inhalation .every 6 10/19/24 (0.083 %) solution for nebulization hour PRN shortness of breath or wheezing #180 mL albuterol sulfate 90 mcg/actuation 2 puff inhalation Q ID PRN 10/19/24 aerosol inhaler shortness of breath or wheez ing #8.5 grams azithromycin 250 mg tablet See Rx Instructions PO .COM PLEX #6 11/24/24 tabs Allergies Allergy/AdvReac Type Severity Reaction Status Date / Time hydromorphone (From DILAUDID) Allergy Unknown HALLUCINATI Verified 11/23/24 20:52 ONS Review of Systems 2 Constitutional: Constitutional: Reports as per HPI REPLACED BY [facility] Past Medical History Medical History (Updated 11/24/24 @ 01:11 by Juwan Car DO) Hyperkalemia Vertigo Bilateral hearing loss Obesity Asthma Surgical History (Updated 09/15/24 @ 13:04 by BRENDA Crisostomo) History of ankle surgery History of History of bilateral hip replacements Family History Family History Mother HTN (hypertension) Social History Social History Household Members: Significant Other Housing: House Alcohol intake: never Patient Tobacco Use Status: Never used Tobacco Advance Directives: No Advance Directives Information Provided: Yes Do you have a plan to hurt others: No Plan service: No Current occupational status: retired Sexual orientation: Straight/Heterosexual Gender identity: Female Cognitive needs: No Hearing needs: No Vision needs: No Physical Exam 2 Vital Signs: Vital Signs: Last Vital Signs Temp 98.5 F 11/23/24 20:49 Pulse 108 H 11/23/24 20:49 Resp 16 11/23/24 20:49 BP 147/93 H 11/23/24 20:49 Pulse Ox 98 11/23/24 20:49 O2 Del Method Room Air 11/23/24 20:49 BMI result Body Mass Index 33.2 Const: Other: General: ?Appears of stated age, patient is somewhat hard of hearing ? Neck: Supple, no LAD ? ?CV: RRR, no obvious murmurs appreciated ? ?Resp: ?No wheezing rales rhonchi no stridor moving air well ? Abd: ?Bowel sounds are present, no tenderness no rebound no rigidity ? ?MSK: FROM, strength 5/5 all extremities, no lower extremity edema ? Skin: Warm, dry, intact, ? ?Neuro: ?Alert and oriented x3, moving upper and lower extremities symmetrically, no obvious facial asymmetry noted, cranial nerves 2-12 intact Medical Decision Making Medical Decision Making MDM Narrative: 1:19 AM 11/24/2024 (Dr. Juwan Car): Patient had some nonspecific concerns, mostly she was complaining of chest pain that is started after she vomited, she reported dizziness and vertigo felt better and want to make sure her heart is okay, this was not sudden onset of chest pain radiating to the back to suspect aortic dissection, her chest x-ray does not reveal any mediastinal widening or pneumothorax, she did have leukocytosis, she was slightly tachycardic but this could be from the fact that she was anxious and use albuterol and I did discuss this with the patient, she did not have any productive cough and she has no adventitious lung sounds however I think it is safe 1st to initiate antibiotics to cover her for community-acquired pneumonia given leukocytosis and chest x-ray finding, otherwise did not feel CT angiography is indicated and by the time I evaluated the patient she really just wanted to be discharged and to know her results. Differential Diagnosis Differential Diagnoses: The differential diagnosis associated with the presentation includes (PE, pneumonia, vertigo, syncope, presyncope, dehydration) Admission/Observation Consideration of admission/observation: Escalation of care including admission/observation considered Lab Data MDM Lab Attestation statement: I reviewed the patient's lab results. 11/23/24 20:59 11/23/24 20:59 Labs: Lab Results 11/23/24 Range/Units 20:59 WBC 15.1 H (4.8-10.8) X10*3/uL RBC 4.42 (4.20-5.50) X10*6/uL Hgb 13.6 (12.0-16.0) g/dl Hct 40.8 (37.0-47.0) % MCV 92.3 (80.0-98.0) fL MCH 30.8 (27.0-33.0) pg MCHC 33.3 (31.0-35.0) g/dl RDW 12.3 (11.0-16.0) % Plt Count 249 (160-400) X10*3/uL MPV 10.6 (9.4-12.3) fL Immature Gran % (Auto) 0.2 (0.0-0.4) % Neut % (Auto) 84.4 H (45-73) % Lymph % (Auto) 7.0 L (20-40) % [place] % (Auto) 7.3 (2-11) % Eos % (Auto) 0.8 (0-4) % Baso % (Auto) 0.3 (0-2) % Lymph # (Auto) 1.1 L (1.2-4.9) X10*3/uL [place] # (Auto) 1.1 (0.1-1.2) X10*3/uL Eos # (Auto) 0.1 (0.0-0.4) X10*3/uL Baso # (Auto) 0.0 (0.0-0.2) X10*3/uL Abs Immat Gran (auto) 0.03 (0.00-0.03) X10*3/uL Absolute Neuts (auto) 12.7 H (2.0-8.3) x10*3/uL Absolute Nucleated RBC 0.000 (0.0-0.012) X10*3/uL Nucleated RBC % (auto) 0.0 (0.0-0.2) /100WBC Sodium 138 (135-145) mmol/L Potassium 4.4 (3.3-5.1) mmol/L Chloride 106 (96-108) mmol/L Carbon Dioxide 24 (22-29) mmol/L Anion Gap 12 (12-20) BUN 12 (9-16) mg/dL Creatinine 0.84 (0.5-1.4) mg/dL Estim Creat Clear Calc 70.6 Estimated GFR > 60 Random Glucose 153 H (60-115) mg/dL Calcium 10.0 (8.4-10.2) mg/dL Magnesium 2.2 (1.6-2.6) mg/dL Total Bilirubin 0.4 (0.0-1.0) mg/dL AST 27 (5-31) U/L ALT 28 (0-31) U/L Alkaline Phosphatase 100 (39-117) U/L Troponin I High Sens < 2.7 (<3.5-17.0) ng/L Total Protein 7.5 (6.5-8.0) g/dL Albumin 4.6 (3.5-5.0) g/dL Independent Interpretation I performed an independent interpretation of an: EKG (111 beats per minute otherwise normal ECG without dysrhythmia, AV ny blocks or ST-T changes to suspect underlying ACS, my independent interpretation) and Plain X-Ray (One view, or thorax, no vascular congestion, suspicious for right lower lobe consolidation) Radiology Impression Discussion of test interpretation with radiology: I have reviewed the radiologist's reading. (IMPRESSION: Possible right mid lung infiltrate. Follow- up recommended.) Prescription Management I considered prescription management with: Antibiotic Chronic Conditions Patient?s care impacted by: Other (Asthma) Discharge Plan Discharge Clinical Impression: Chest pain, precordial Community acquired pneumonia Qualifiers: Laterality: right Lung location: middle lobe of lung Qualified Code(s): J18.9 - Pneumonia, unspecified organism Patient Disposition: Home, Self-Care Instructions: Community Acquired Pneumonia (ED) Additional Instructions: As discussed the only abnormal thing that I am noting is that you did have elevated white count and chest x-ray may show right middle lung infiltrate consistent with pneumonia, you do have history of asthma, I think the safest thing to do is to start you on antibiotics, I am sending prescription to your pharmacy, thereafter follow up with the PCP, take these antibiotics with food, should you have any other issues or concerns come back to the ER Your EKG, potassium, cardiac enzymes otherwise has been reassuring Prescriptions: New azithromycin 250 mg tablet See Rx Instructions PO .COMPLEX Qty: 6 0RF Rx Instructions: For 250 mg dose pack: take 500 mg today (day 1), then 250 mg for 4 days (days 2-5) No Action albuterol sulfate 90 mcg/actuation HFA aerosol inhaler 2 puff inhalation QID PRN (Reason: shortness of breath or wheezing) Qty: 8.5 3RF albuterol sulfate 2.5 mg /3 mL (0.083 %) solution for nebulization 2.5 mg inhalation .every 6 hour PRN (Reason: shortness of breath or wheezing) Qty: 180 3RF multivitamin Tablet 1 tab PO DAILY Referrals: Taryn Man PA [Primary Care Provider, Hospitalist] - 10 days Clinical Impression: Community acquired pneumonia; Chest pain, precordial Print Language: Azeri
[2024-11-24 01:30] VITALS: BP 142/89; PULSE 97; RESP 16; TEMP 37.1; O2SAT 99
[2024-11-24 01:36] VITALS: BP 146/86; PULSE 98; RESP 16; TEMP 37.1; O2SAT 99
== END 2024-11-24 01:40 | disposition home or self-care (01) ==
PROVIDERS: Emergency Provider Emergency Medicine; PCP Physician Assistant
DX: J18.9 Pneumonia, unspecified organism (principal); R07.89 Other chest pain; M54.50 Low back pain, unspecified; Z79.899 Other long term (current) drug therapy
CPT/HCPCS: 36415; 71045; 80053; 83735; 84484; 85025; 93005; 99283; 99284

== ENCOUNTER → 2024-11-23 20:48 | Outpatient (BNV) | payer MEDICARE, SELFPAY | PROVIDERS: PCP Physician Assistant; Visit Provider Radiology Vascular & Interventional Radiology | DX: R07.9 Chest pain, unspecified (principal) | CPT/HCPCS: 71045 ==

== ENCOUNTER → 2024-11-23 20:48 | Outpatient (BNV) | payer MEDICARE, SELFPAY | PROVIDERS: Emergency Provider Emergency Medicine; PCP Physician Assistant; Visit Provider Internal Medicine Cardiovascular Disease | DX: R00.0 Tachycardia, unspecified (principal) | CPT/HCPCS: 93010 ==

== ENCOUNTER 2024-11-29 14:58 | Outpatient (AMB) | payer MEDICARE, SELFPAY ==
--- NOTE | 2024-11-29 15:02 | A.OFFPC_ITS ---
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 Required: No Accompanied by: Self / Same As Patient Allergies hydromorphone (From DILAUDID) Allergy (Unknown, Verified 11/29/24 15:02) HALLUCINATIONS Medication List - Last Reconciled 11/29/24 by ISMA Vera albuterol sulfate 90 mcg/actuation 2 puffs inhalation QID PRN albuterol sulfate 2.5 mg (3 mL) inhalation .every 6 hour PRN meclizine 25 mg PO TID PRN multivitamin 1 tab PO DAILY Tobacco use date assessed: 06/22/24 Dental Screening Dental Screen Date: 06/22/24 HPI HPI Comments History of Present Illness Details 64-year-old female with history of mild intermittent asthma and obesity presents to the office today for follow-up Mild intermittent asthma-no recent exacerbation. Rare use of albuterol inhaler/nebulizer Obesity-not actively working on weight loss, mostly secondary to physical limitations. However is trying to walk for exercises and does plan on getting a stationary bike. She is looking forward to a vacation with her granddaughter to [place] and would like to prepare for the amount of walking for this vacation Osteoarthritis of multiple joints-most prominent in the knees bilaterally R>L. Has been following with physical therapy with great improvement since onset of pain and june. Was told she has a slight displacement of the right patella that is likely contributing to her pain. She has received cortisone injections in the past. She is trying to avoid surgery. Follows with Orthopedic surgery as well. Denies any instability in the joint. Pain is most prominent when on the stairs. Overall she states she is able to function. XR of the bilateral knees 09/15/2024 shows bicompartmental osteoarthritis, [id number] which is unchanged. Bilateral hearing loss-following with ENT, has had MRI r/o structural abnormalit y/mass. No cranial nerve issues. Following with Dr. Rosario. She does have hearing aids bilaterally. She is a candidate for cochlear implants but is not interested in this. She has also had several episodes of vertigo months apart that last for over several minutes. There is some associated nausea. Chronic vertigo-likely related to above. Requesting referral for Neeru maneuver as well as meclizine prescription Concerns: Chest pain. Starts in scaula and radiates to chest. Reproducible ttp over right scapula Health maintenance: Reports mammograms [id number] to review in the chart. Will request Last DEXA scan 05/2024 which was normal Last colonoscopy 11/2022 ROS: See HPI EXAM: Constitutional - Awake and Alert, No apparent distress Eyes - PERRL Cardiovascular - S1S2, RRR, No edema Respiratory - Normal lung expansion, Normal respiratory effort, No respiratory distress, CTA bilaterally Extremities - no calf tenderness bilaterally, no swelling Skin - Warm/Dry Neurological - Alert & oriented x3 Psychological - Appropriate [facility] Medical History (Updated 11/25/24 @ 00:00 by Roxy Amato) Hyperkalemia Vertigo Bilateral hearing loss Obesity Asthma Surgical History (Updated 09/15/24 @ 13:04 by BRENDA Crisostomo) History of ankle surgery History of History of bilateral hip replacements Family History Mother HTN (hypertension) Social History Household Members: Significant Other Housing: House Alcohol intake: never Patient Tobacco Use Status: Never used Tobacco service: No Current occupational status: retired Sexual orientation: Straight/Heterosexual Gender identity: Female Cognitive needs: No Hearing needs: No Vision needs: No Female Reproductive History Menstrual Age of Menarche: 10 Questionnaire Thrive Questionnaire Date Thrive assessed: 06/22/24 FERNANDO-7 AMB Questionnaire FERNANDO-7 Date FERNANDO - 7 assessed: 06/22/24 Source: Developed by Drs. Grey King, Niyah Cobb, Terrance Perez and colleagues, with an educational negrita from [employer]. Physical exam (Primary Care) Vital Signs: Last Vital Signs Temp 97.6 F 11/29/24 15:06 Pulse 80 11/29/24 15:06 Resp 18 11/29/24 15:06 BP 118/90 H 11/29/24 15:06 Pulse Ox 97 11/29/24 15:06 Oxygen Delivery Method Room Air 11/29/24 15:06 BMI result Body Mass Index 29.9 Tobacco/Smoking Status: Tobacco use Status Tobacco use date assessed 06/22/24 11/29/24 15:04 Patient Tobacco Use Status Never used Tobacco 11/29/24 15:04 Thrive Assessment: Date of Thrive Assessment Date Thrive assessed 06/22/24 11/29/24 15:04 Coding Level of Care Code Est Pt Level 4 (70140) Complex EM visit Add On G2211 Diagnoses Asthma J45.909 Obesity E66.9 Bilateral hearing loss H91.93 Vertigo R42 Assessment & Plan Assessment & Plan (1) Asthma: Code(s): J45.909 - Unspecified asthma, uncomplicated Category: Medical Plan: Controlled. Use albuterol only as needed for shortness of breath and wheezing (2) Obesity: Code(s): E66.9 - Obesity, unspecified Category: Medical Plan: Continue with weight loss efforts with increased activity/duration/weight- bearing as knee pain improves. Continue with healthy diet lower in calories with emphasis on increased protein, fruits, vegetables and lower in refined sugars, simple carbohydrates, highly processed foods. (3) Bilateral hearing loss: Code(s): H91.93 - Unspecified hearing loss, bilateral Category: Medical Plan: Given associated vertigo, labyrinthitis. Meniere's unlikely given normal MRI. Follow-up with ENT as scheduled. Continue with hearing aids (4) Vertigo: Code(s): R42 - Dizziness and giddiness Category: Medical Plan: As above. Referred to PT for Neeru maneuver. Meclizine PRN Plan Follow-up in 6 months. Reviewed labs Orders: Orders PT Evaluation and Treatment 11/29/24 R42 - Dizziness and giddiness Medications: New meclizine 25 mg PO TID PRN 90 tabs 0RF dizziness
[2024-11-29 15:06] VITALS: BP 118/90; PULSE 80; RESP 18; TEMP 36.4; O2SAT 97; BMI 29.9
--- OUTSIDE RECORDS SUMMARY | 2024-11-29 20:11 | XMS_ITS | Data Portability ---
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 Procedures None recorded. Surgeries None recorded. Imaging MRI, brain + internal auditory canal, w/wo contrast - MRI, BRAIN + INTERNAL AUDITORY CANAL, W/WO CONTRAST 2023 [facility] ([facility]), [address] [place], [address], 02/09/2024 14:28:52 Medication Orders None recorded. Patient TargetsNo targets recorded. Patient InstructionsNo instructions recorded. Reason for Referral None Reported. Results Created Date Observation Date Name Description Value Unit Range Abnormal Flag Note LastModifiedBy Organization Detail LastModifiedTime 01/25/2001/25/2024 CBC WITH DIFFE RENTI AL/PL ATELE T WBC 9.0 x10e3 /uL 3.4-10 .8 normal Not Available [facility] ([facility]) [address] [facility], [place], [address], 02/02/2024 19:51:40 01/25/2001/25/2024 CBC WITH DIFFE RENTI AL/PL ATELE T RBC 4.45 x10e6 /uL 3.77-5 .28 normal Not Available [facility] ([facility]) [address] [place], [address], 02/02/2024 19:51:40 01/25/20 24 01/25/2024 CBC WITH DIFFE RENTI AL/PL ATELE T hemoglobin 14.5 g/dL 11.1-1 5.9 normal Not Available [facility] ([facility]) [address] [place], [address], 02/02/2024 19:51:40 01/25/2001/25/2024 CBC WITH DIFFE RENTI AL/PL ATELE T hematocrit 43.2 % 34.0-4 6.6 normal Not Available [facility] ([facility]) [address] [place], [address], 02/02/2024 19:51:40 01/25/20 24 01/25/2024 CBC WITH DIFFE RENTI AL/PL ATELE T MCV 97 fL 79-97 normal Not Available [facility] ([facility]) [address] [place], [address], 02/02/2024 19:51:40 01/25/20 24 01/25/2024 CBC WITH DIFFE RENTI AL/PL ATELE T MCH 32.6 pg 26.6-3 3.0 normal Not Available [facility] ([facility]) [address] [place], [address], 02/02/2024 19:51:40 01/25/20 24 01/25/2024 CBC WITH DIFFE RENTI AL/PL ATELE T MCHC 33.6 g/dL 31.5-3 5.7 normal Not Available [facility] ([facility]) [address] [place], [address], 02/02/2024 19:51:40 01/25/20 24 01/25/2024 CBC WITH DIFFE RENTI AL/PL ATELE T RDW 12.0 % 11.7-1 5.4 Not Available [facility] ([facility]) [address] [facility], [place], [address], 02/02/2024 19:51:40 01/25/20 24 01/25/2024 CBC WITH DIFFE RENTI AL/PL ATELE T platelets 267 x10e3 /uL 150-45 0 normal Not Available [facility] ([facility]) [address] [facility], [place], [address], 02/02/2024 19:51:40 01/25/20 24 01/25/2024 CBC WITH DIFFE RENTI AL/PL ATELE T neutrophils 72 % not estab. normal Not Available [facility] ([facility]) [address] [facility], [place], [address], 02/02/2024 19:51:40 01/25/20 24 01/25/2024 CBC WITH DIFFE RENTI AL/PL ATELE T lymphs 18 % not estab. normal Not Available [facility] ([facility]) [address] [facility], [place], [address], 02/02/2024 19:51:40 01/25/20 24 01/25/2024 CBC WITH DIFFE RENTI AL/PL ATELE T monocytes 7 % not estab. normal Not Available [facility] ([facility]) [address] [facility], [place], [address], 02/02/2024 19:51:40 01/25/20 24 01/25/2024 CBC WITH DIFFE RENTI AL/PL ATELE T eos 3 % not estab. normal Not Available [facility] ([facility]) [address] [facility], [place], [address], 02/02/2024 19:51:40 01/25/20 24 01/25/2024 CBC WITH DIFFE RENTI AL/PL ATELE T basos 0 % not estab. normal Not Available [facility] ([facility]) [address] [facility], [place], [address], 02/02/2024 19:51:40 01/25/20 24 01/25/2024 CBC WITH DIFFE RENTI AL/PL ATELE T immature cells DIAGNOSTIC MEDICAL SONOGRAPHER Not Available [facility] ([facility]) [address] [facility], [place], [address], 02/02/2024 19:51:40 01/25/20 24 01/25/2024 CBC WITH DIFFE RENTI AL/PL ATELE T neutrophils (absolute) 6.4 x10e3 /uL 1.4-7. 0 normal Not Available [facility] ([facility]) [address] [facility], [place], [address], 02/02/2024 19:51:40 01/25/20 24 01/25/2024 CBC WITH DIFFE RENTI AL/PL ATELE T lymphs (absolute) 1.6 x10e3 /uL 0.7-3. 1 normal Not Available [facility] ([facility]) [address] [place], [address], 02/02/2024 19:51:40 01/25/20 24 01/25/2024 CBC WITH DIFFE RENTI AL/PL ATELE T monocytes(ab solute) 0.7 x10e3 /uL 0.1-0. 9 normal Not Available [facility] ([facility]) [address] [facility], [place], [address], 02/02/2024 19:51:40 01/25/20 24 01/25/2024 CBC WITH DIFFE RENTI AL/PL ATELE T eos (absolute) 0.3 x10e3 /uL 0.0-0. 4 normal Not Available [facility] ([facility]) [address] [place], [address], 02/02/2024 19:51:40 01/25/20 24 01/25/2024 CBC WITH DIFFE RENTI AL/PL ATELE T baso (absolute) 0.0 x10e3 /uL 0.0-0. 2 normal Not Available [facility] ([facility]) [address] [facility], [place], [address], 02/02/2024 19:51:40 01/25/20 24 01/25/2024 CBC WITH DIFFE RENTI AL/PL ATELE T immature granulocytes 0 % not estab. Not Available [facility] ([facility]) [address] [facility], [place], [address], 02/02/2024 19:51:40 01/25/20 24 01/25/2024 CBC WITH DIFFE RENTI AL/PL ATELE T immature grans (abs) 0.0 x10e3 /uL 0.0-0. 1 Not Available [facility] ([facility]) [address] [facility], [place], [address], 02/02/2024 19:51:40 01/25/20 24 01/25/2024 CBC WITH DIFFE RENTI AL/PL ATELE T NRBC DIAGNOSTIC MEDICAL SONOGRAPHER Not Available [facility] ([facility]) [address] [facility], [place], [address], 02/02/2024 19:51:40 01/25/20 24 01/25/2024 CBC WITH DIFFE RENTI AL/PL ATELE T hematology comments: DIAGNOSTIC MEDICAL SONOGRAPHER Not Available [facility] ([facility]) [address] [facility], [place], [address], 02/02/2024 19:51:40 01/25/20 24 01/27/2024 A1C W/GLY [...] (ADA) Not Available [facility] [address] [place], [address], 02/02/2024 19:51:41 01/25/20 24 01/27/2024 A1C W/GLY COMAR K(R) REFLE X estimated average glucose 111 mg/dL Not Available [facility] [address] [facility], [place], [address], 02/02/2024 19:51:41 01/25/2001/27/2024 A1C W/GLY COMAR K(R) [...] s. Not Available [facility] [address] [facility], [place], [address], 02/02/2024 19:51:41 01/25/20 24 01/26/2024 IVELISSE+R F QN IVELISSE direct NEGATI VE negati ve Not Available [facility] ([facility]) [address] [facility], [place], [address], 02/02/2024 19:51:41 01/25/20 24 01/26/2024 IVELISSE+R F QN rheumatoid factor (rf) 11.7 IU/mL <14.0 normal Not Available [facility] ([facility]) [address] [facility], [place], [address], 02/02/2024 19:51:41 01/25/20 24 02/02/2024 THYRO ID STIMU LATIN G HORMO NE TSH-icma 1.4 uu/mL Refer ence Range : Non-P regna nt Adult 0.450 -4.50 0 Pregn sotero First Trime ster 0.100 -4.00 0 Secon d Trime ster 0.200 -4.00 0 Third Trime ster 0.300 -4.50 0 Not Available [facility] [address] [facility], [place], [address], 02/02/2024 19:51:42 01/25/20 24 01/26/2024 SYPHI LIS RPR W/REF FANNY RPR NON REACTI VE non reacti ve Not Available [facility] ([facility]) [address] [facility], [place], [address], 02/02/2024 19:51:42 01/25/20 24 01/26/2024 SEDIM ENTAT ION RATE- WESTE RGREN sedimentatio n rate-westerg narendra 9 mm/HR 0-40 normal Not Available [facility] ([facility]) [address] [facility], [place], [address], 02/02/2024 19:51:43 01/25/20 24 01/26/2024 C-JAMES CTIVE PROTE IN, QUANT C-reactive protein, quant 5 mg/L 0-10 normal Not Available [facility] ([facility]) [address] [facility], [place], [address], 02/02/2024 19:51:43 02/14/19 25 02/16/2024 LYME DISEA [...] is recom lucina d. Not Available [facility] ([facility]) [address], [place], [address], 02/16/2024 13:16:30 01/25/20 24 audio gram No observ ation record ed. [email or web address] Not Available 14:35:22 02/09/20 24 02/08/2024 MRI, brain + brain stem, w/wo contr ast [facility] Access ion Number : [id number] Patien t Name: Kanwal Espinosaa lissette Record Number : [id number] Date of : 1960 Date of Exam: 2023 Referr ing Physic alexia: Mane Zaman re Ear Nose [address] [facility] [place] [address] Exam: MR Brain (C-/C+ ) CPT 09385 Room Descri ption: [facility] Verio 3.0T HISTOR Y: Bilate ral sensor ineura l hearin g loss. TECHNI QUE: Multip lanar multis equenc e MRI of the brain (IAC) was obtain ed before and after the admini strati on of 16 cc of Dotare m. COMPAR MOIRA: No prior studie s are availa ble for compar moira at [facility] . [...] cerebe llopon victoriano angle cister n or international affairs vice president al audito ry canal. No abnorm al [...] repres ent acute sinusi tis in the [facility] debi kelley Electr onical ly Signed By: Deshawn Greenfield MD [email or web address] [facility] ([facility]) [address] [facility], [place], [address], 02/15/2024 11:33:58 07/09/19 25 audio gram No observ ation record ed. BARCODE Not Available 2024 09:39:03 Result Notes Documentation Provider Name and Address Organization Details Recorded Time Mri, Brain + Brain Stem, W/wo Contrast : [facility] Accession Number: [id number] Patient Name: Kanwal Jimenez Date of : 1960 Date of Exam: 02-08-2024 Referring Physician: Ishmael Zaman Ear [facility] [address] [facility] [address] [place] [address] Exam: MR Brain (C-/C+) CPT 37552 Room Description: [facility] Verio 3.0T HISTORY: Bilateral sensorineural hearing loss. TECHNIQUE: Multiplanar multisequence MRI of the brain (IAC) was obtained before and after the administration of 16 cc of Dotarem. COMPARISON: No prior studies are available for comparison at [facility]. FINDINGS: On the [...] Electronically Signed By: Deshawn ZAMAN MD [address] [facility] [place] [address], [place], [address], [facility] - [facility] 02/15/2024 11:33:58 Problems Name Problem SNOMED Code Status Onset Date Resolution Date Notes Provider Name and Address Organization Details Recorded Time Sensorine ural hearing loss of bilateral ears 503982083 Active 2021 Sensorine ural hearing loss, bilateral ; Note: Date Diagnosed : 11/01/2021 9:20 AM (H90.3) Not Available [facility] 4 02:36:19 Mixed conductiv e and sensorine ural hearing loss, bilateral 726825921 Active 2023 SOLITARIO JOHNSON MD [address] [facility],[place] [address], [place], [address] , [facility] - [facility] 4 13:40:48 Sensorine ural hearing loss of bilateral ears 497777284 Active 2024 ISHMAEL ZAMAN MD [address] [facility],[place] [address], [place], [address] , [facility] - [facility] 5 14:51:05 Mixed conductiv e and sensorine ural hearing loss, bilateral 187061900 Active 2024 HÉCTOR TRISTAN [address] [facility] [place] [address], [place], [address] , [facility] - [facility] 5 09:15:17 Bilateral tinnitus 53789685252 02 Active 2024 ISHMAEL ZAMAN MD [address] [facility],[place] [address], [place], [address] , [place] - [facility] 10:04:11 Problem Notes None recorded. Procedures Surgical History Date Name Laterality Status Provider Name and Address Organization Details Recorded Time 06/15/19 25 Comp Audio with Tymps - 69329 & 93225 completed TABBY BARAHONA, AUD [address] [facility],[address], [address], [place] - [facility] 06/14/2024 09:15:02 02/14/19 25 Telehealth completed ISHMAEL ZAMAN MD [address] [facility],[address], [address], [place] - [facility] 02/15/2024 11:33:49 01/25/20 24 Comp Audio with Tymps - 77961 & 49463 completed HARRY JOYNER, AUD [address] [facility],[address], [address], [place] - [facility] 01/25/2024 12:00:11 section completed Ivelisse Rust [place] - [facility] 06/14/2024 09:43:01 total replacement of hip completed Ivelisse Rust [place] - [facility] 06/14/2024 09:43:08 Imaging Results None recorded. Procedure [...] mg tablet 01/24 completed Medicati on ID: [id number] B rand Name: kranthi anderson (contrac eptive) Send Method: E-Prescr ibed Sub s Allowed: subs OK Medic ationGen ericName : norethin drone (contrac eptive) Not Available Not Available Not Available Vitals Date Recorded Body height Provider Name an d Address Organization Details Last Updated DateTime 02/15/2024 160.02 cm ISHMAEL ZAMAN MD [address] [place] [address], [address], [facility] 02/15/2024 11:32:21 Date Recorded Body height Body mass index (BMI) Body weight Provider Name and Address Organization Details Last Updated DateTime 01/25/2024 160.02 cm 31 kg/m2 84161.66 g Osiris Baltazar [place] [facility] 01/25/2024 11:18:48 Social History None recorded. Functional Status None recorded. Mental Status None recorded. Family History Nothing Reported. Medical History No medical history recorded. Gynecological HistoryNo gynecological history recorded. Obstetrics History GPAL:G 0 P 0 0 0 0 Past Encounters Encounter ID Performer Location Encounter Start Date Encounter Closed Date Diagnosis/Indication Diagnosis SNOMED-CT Code Diagnosis ICD10 Code Diagnosis IMO Codes Diagnosis Note [id number] SOLITARIO JOHNSON MD [facility] [address] [address] 11/02/2023 13:02:04 11/02/2023 13:55:29 Mixed conductive and sensorineural hearing loss, bilateral 187389869 H90.6 [id number] ISHMAEL ZAMAN MD [facility] [address] [address] 01/25/2024 11:07:08 01/25/2024 12:32:28 Sensorineural hearing loss of bilateral ears 689284586 H90.3 Audiometri c testing was repeated today [...] to bring to her audiologis t at [facility] to ensure that her hearing [...] . Family his tory of hearing loss 465456597 Z82.2 [id number] HÉCTOR SCOTT [facility] [address] [place] [address] 01/25/2024 11:59:19 01/26/2024 07:44:56 Mixed conductive and sensorineural hearing loss, bilateral 216793975 H90.6 Right Ear:Modera tely-sever e through 1K Hz rising to a mild SNHL through 3K Hz sloping to a moderate HF HL with excellent speech discrimina tion.Type C tympanogra m.Left Ear:Severe rising to moderate MHL with excellent speech discrimina tion.Type C tympanogra m. Sensorineu ral hearing loss of bilateral ears 578261005 H90.3 [id number] ISHMAEL ZAMAN MD [facility] [address] [facility] [place] [address] 02/15/2024 11:32:04 02/15/2024 11:49:32 Sensorineural hearing loss of bilateral ears 508459474 H90.3 Family his tory of hearing loss 309037023 Z82.2 [id number] ISHMAEL ZAMAN MD [facility] [address] [facility] [place] [address] 06/14/2024 08:53:05 06/14/2024 10:22:07 Sensorineural hearing loss of bilateral ears 910405670 H90.3 Family his tory of hearing loss 968695604 Z82.2 [id number] Bilateral tinnitus 69006 89678 102 H93.13 [id number] HÉCTOR TRISTAN [facility] [address] [address] 06/14/2024 09:14:50 06/17/2024 01:53:26 Mixed conductive and sensorineural hearing loss, bilateral 094952235 H90.6 [id number] Audiologic al evaluation results: Right ear: Moderately [...] [place]IC[place] B[place] Kanwal Jimenez [id number] Kanwal Jimenez 07/06/2024 2 [place]) [id number] Kanwal Jimenez [id number] Kanwal Jimenez Notes Date Note Type [...] October 2023 with updated audiometric testing from [facility] showing a significant change in the right sensorineural thresholds, with significant worsening in speech discrimination. Patient reports maternal family history of childhood onset hearing loss, her mother had surgery on her ear but it did not help. Patient's brother has hearing loss as well which started in his 50s.Patient reports that she has since obtained binaural amplification from [facility]. Overall she seems to be doing well with them, though she feels that on some days her general hearing is not as good as other days. She does not notice a unilateral fluctuation in hearing, only a general sense that her hearing has good days and bad days. No dizziness or balance disturbance at all. ISHMAEL ZAMAN MD [address] [facility] [place] [address], [place], [address], [facility] 01/25/2024 12:36:25 02/15/2024 text/html Patient with bilateral, [...] second degree relatives. ISHMAEL ZAMAN MD [address] [facility] [place],[address], [place], [address], [facility] 02/15/2024 11:42:20 06/14/2024 text/html 64-year-old female with apparently progressive sensorineural hearing loss. MRI and laboratory testing negative. Patient does have a very strong family history of early onset and progressive sensorineural hearing loss in 6 or 7 of her first and second-degree relatives. Using binaural amplification managed through [facility]. She comes 4-month follow-up audiogram to assess for progression. ISHMAEL ZAMAN MD [address], [place], [address], [facility] 06/14/2024 10:08:56 OBGyn Episode No OBEpisode recorded.
--- OUTSIDE RECORDS SUMMARY | 2024-11-29 20:11 | XMS_ITS | Patient Health Record ---
Author Organization [facility] Address [address] [place] [address] Care Team Providers Care Automatic Spinning Lathe Operator Name Role Phone Diogo (RETIRED) Ismael MCELROY Primary Care Provide r Unavailable Grey Delgado Unavailable [phone] Reason For Referral No Information Medications Medication SIG (Take, Route, Frequency, Duration) Notes Start Date End Date Status Albuterol 02/10/2024 02/10/2024 Active PriLOSEC Active Problems Problem Type SNOMED Code ICD Code Onset Dates Problem Status W/U Status Risk Notes Problem Esophageal reflux (717178234) Esophageal reflux (530.81) Active confirmed Plan Of Treatment Pending Test Test Name Order Date XR BARIUM SWALLOW-ESOPHAGUS 02/12/2011 XR GI SERIES 02/12/2011 Insurance Providers Payer Name Payer Address Payer Phone Subscriber Number Group Number Insured Name Patient Relationship to Insured Coverage Start Date Coverage End Date [facility] [address] [place] [address] [phone] [id number] IGOR TYLER Self - patient is the insured Medical (General) History Medical History History ICD Code Asthma GERD Denies [place],DM,CVA,Lung disease,renal dise ase Surgical History Surgery Date(Month/Year)
--- OUTSIDE RECORDS SUMMARY | 2024-11-29 20:11 | XMS_ITS | Clinical Summary ---
Author Organization [facility] Address [address] [facility] [address] [place] [address] Phone Care Team Providers Care Cyber Instructor Name Role Phone Ismael Lind MD Primary [...] Most Recently Relevant to Health Maintenance [place] [address] [place] [address] [place] [address] [place] [address] [place] [address] [place] [address] HMO POS [facility] [place] [address] [place] [address] HMO POS [facility] HMO POS Member Subscriber Plan / Payer (Ef fective 2013-Present) Name:Kanwal Jimenez Relation to Subscriber:Self Name:JimenezKanwal villalba Payer ID:[id number] (NAIC) Type:HMO Address: [address] [place], [place] [facility] HMO POS Member Subscriber Plan / Payer (Ef fective 2013-Present) Name:Kanwal Jimenez Relation to Subscriber:Self Name:Kanwal Jimenez Payer ID:[id number] (NAIC) Type:HMO Address: [address] [place], [place] [address] [address] HMO POS Member Subscriber Plan / Payer (Ef fective 2013-Present) Name:Kanwal Jimenez Relation to Subscriber:Self Name:Kanwal Jimenez Payer ID:[id number] (NAIC) Type:HMO Address: [address] [place], [place] [address] HMO POS Care Teams Cyber Instructor Relationship Specialty Start Date End Date Ismael Lind MD [address] [place] [address] [place] [address] PCP - General Internal Medicine 04/15/18 Additional Source Comments The information contained in this document represents components of the legal health record. It is not the complete legal health record.[facility]
== END 2024-11-29 15:44 | disposition home or self-care (01) ==
LOC: HO.HMCHD 14:59
PROVIDERS: PCP Physician Assistant; Visit Provider Physician Assistant
DX: J45.909 Unspecified asthma, uncomplicated (principal); E66.9 Obesity, unspecified; H91.93 Unspecified hearing loss, bilateral; R42 Dizziness and giddiness

== ENCOUNTER → 2024-11-29 14:58 | Outpatient (BNVA) | payer MEDICARE, SELFPAY | PROVIDERS: PCP Physician Assistant; Visit Provider Physician Assistant | DX: J45.20 Mild intermittent asthma, uncomplicated (principal); E66.9 Obesity, unspecified; Z68.29 Body mass index [BMI] 29.0-29.9, adult; H91.93 Unspecified hearing loss, bilateral; R42 Dizziness and giddiness; M17.0 Bilateral primary osteoarthritis of knee | CPT/HCPCS: 99212 ==

== ENCOUNTER 2025-01-27 07:59 | Outpatient (REF) | payer SELFPAY ==
--- OUTSIDE RECORDS SUMMARY | 2025-01-27 08:02 | XMS_ITS | Clinical Summary ---
Author Organization [facility] Address [address] [facility] [address] [place] [address] Phone Care Team Providers Care Consulting Technical Director Name Role Phone Ismael Lind MD [...] Most Recently Relevant to Health Maintenance [place] [address] [place] [address] [place] [address] [place] [address] [place] [address] [place] [address] HMO POS [facility] [place] [address] [place] [address] HMO POS [facility] HMO POS Member Subscriber Plan / Payer (Ef fective 2013-Present) Name:Kanwal Jimenez Relation to Subscriber:Self Name:JimenezKanwal villalba Payer ID:[id number] (NAIC) Type:HMO Address: [address] [place], [place] [facility] HMO POS Member Subscriber Plan / Payer (Ef fective 2013-Present) Name:Kanwal Jimenez Relation to Subscriber:Self Name:Kanwal Jimenez Payer ID:[id number] (NAIC) Type:HMO Address: [address] [place], [place] [address] HMO POS Member Subscriber Plan / Payer (Ef fective 2013-Present) Name:Kanwal Jimenez Relation to Subscriber:Self Name:Kanwal Jimenez Payer ID:[id number] (NAIC) Type:HMO Address: [address] [place], [place] [address] HMO POS Care Teams Consulting Technical Director Relationship Specialty Start Date End Date Ismael Lind MD [address] [place] [address] [place] [address] PCP - General Internal Medicine 04/15/18 Additional Source Comments The information contained in this document represents components of the legal health record. It is not the complete legal health record.[facility]
--- OUTSIDE RECORDS SUMMARY | 2025-01-27 08:02 | XMS_ITS | Data Portability ---
Author Organization [place] - [facility], Allergy Address [address] [place] [address] Care Team Providers Care Pressfitter Name Role Phone REMI SEGAL Primary Care Provider [phone] Assessment Encounter Date Assessment Date Assessment LastModified [...] she should continue to work with her advertising sales consultant at [facility] audiology to ensure that her hearing [...] negative, so I will order this test. [email or web address] Not available 02/15/2024 11:38:16 06/14/2024 06/14/2024 Patient [...] She should continue to work with her advertising sales consultant at [facility] audiology to ensure that her hearing [...] future. Recommend follow-up audiogram in 6 months. 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 There do not appear to be any infectious, metabolic, autoimmune, inflammatory or anatomic anomalies that would explain the patient's progressive hearing loss. 6-month interval audiometric testing done today. This shows progression in the hearing loss in the right ear particularly in the high frequencies. Speech discrimination down to 36% on the right. She should continue to work with her advertising sales consultant at [facility] audiology to ensure that her hearing aids are adjusted to match her current level of hearing loss. She has been given a copy of the audiogram. [email or web address] Not available 12/15/2024 10:20:33 Plan of Treatment Reminders Order Date Submit Date Provider Last Modified By Organization Details Last Modified Time Details Appointments Establish ed 10 2025 09:00A M ISHMAEL ZAMAN MD Not available Not available Not available Lab borrelia burgdorfe ri IgG + IgM + total panel, IA, serum 2024 025 CANDI [facility] (Centralized Electronic Ordering - All Locations), Patient Can Go To The Location Of Their Choice, [address] 02/16/2024 13:16:31 Referral None recorded. Procedures None recorded. Surgeries None recorded. Imaging None recorded. Medication Orders None recorded. Patient TargetsNo targets recorded. Patient InstructionsNo instructions recorded. Reason for Referral None Reported. Results Created Date Observation Date Name Description Value Unit Range Abnormal Flag Note LastModifiedBy Organization Detail LastModifiedTime 01/25/20 24 01/25/2024 CBC WITH DIFFE RENTI AL/PL ATELE T WBC 9.0 x10e3 /uL 3.4-10 .8 normal Not Available [facility] ([facility]) [address] [place], [address], 02/02/2024 19:51:40 01/25/20 24 01/25/2024 CBC WITH DIFFE RENTI AL/PL ATELE T RBC 4.45 x10e6 /uL 3.77-5 .28 normal Not Available [facility] ([facility]) [address] [place], [address], 02/02/2024 19:51:40 01/25/20 24 01/25/2024 CBC WITH DIFFE RENTI AL/PL ATELE T hemoglobin 14.5 g/dL 11.1-1 5.9 normal Not Available [facility] ([facility]) [address] [place], [address], 02/02/2024 19:51:40 01/25/20 24 01/25/2024 CBC WITH DIFFE RENTI AL/PL ATELE T hematocrit 43.2 % 34.0-4 6.6 normal Not Available [facility] ([facility]) [address] [place], [address], 02/02/2024 19:51:40 01/25/20 24 01/25/2024 CBC WITH DIFFE RENTI AL/PL ATELE T MCV 97 fL 79-97 normal Not Available [facility] ([facility]) [address] [place], [address], 02/02/2024 19:51:40 01/25/20 24 01/25/2024 CBC WITH DIFFE RENTI AL/PL ATELE T MCH 32.6 pg 26.6-3 3.0 normal Not Available [facility] ([facility]) [address] [facility], [place], [address], 02/02/2024 19:51:40 01/25/20 24 01/25/2024 CBC WITH DIFFE RENTI AL/PL ATELE T MCHC 33.6 g/dL 31.5-3 5.7 normal Not Available [facility] ([facility]) [address] [facility], [place], [address], 02/02/2024 19:51:40 01/25/20 24 01/25/2024 CBC WITH DIFFE RENTI AL/PL ATELE T RDW 12.0 % 11.7-1 5.4 Not Available [facility] ([facility]) [address] [facility], [place], [address], 02/02/2024 19:51:40 01/25/20 24 01/25/2024 CBC WITH DIFFE RENTI AL/PL ATELE T platelets 267 x10e3 /uL 150-45 0 normal Not Available [facility] ([facility]) [address] [facility], [place], [address], 02/02/2024 19:51:40 01/25/20 24 01/25/2024 CBC WITH DIFFE RENTI AL/PL ATELE T neutrophils 72 % not estab. normal Not Available [facility] ([facility]) [address] [place], [address], 02/02/2024 19:51:40 01/25/20 24 01/25/2024 CBC WITH DIFFE RENTI AL/PL ATELE T lymphs 18 % not estab. normal Not Available [facility] ([facility]) [address] [place], [address], 02/02/2024 19:51:40 01/25/20 24 01/25/2024 CBC WITH DIFFE RENTI AL/PL ATELE T monocytes 7 % not estab. normal Not Available [facility] ([facility]) [address] [place], [address], 02/02/2024 19:51:40 01/25/20 24 01/25/2024 CBC WITH DIFFE RENTI AL/PL ATELE T eos 3 % not estab. normal Not Available [facility] ([facility]) [address] [facility], [place], [address], 02/02/2024 19:51:40 01/25/20 24 01/25/2024 CBC WITH DIFFE RENTI AL/PL ATELE T basos 0 % not estab. normal Not Available [facility] ([facility]) [address] [facility], [place], [address], 02/02/2024 19:51:40 01/25/20 24 01/25/2024 CBC WITH DIFFE RENTI AL/PL ATELE T immature cells CYLINDER INSPECTOR AND TESTER Not Available [facility] ([facility]) [address] [place], [address], 02/02/2024 19:51:40 01/25/20 24 01/25/2024 CBC WITH DIFFE RENTI AL/PL ATELE T neutrophils (absolute) 6.4 x10e3 /uL 1.4-7. 0 normal Not Available [facility] ([facility]) [address] [place], [address], 02/02/2024 19:51:40 01/25/20 24 01/25/2024 CBC WITH DIFFE RENTI AL/PL ATELE T lymphs (absolute) 1.6 x10e3 /uL 0.7-3. 1 normal Not Available [facility] ([facility]) [address] [place], [address], 02/02/2024 19:51:40 01/25/20 24 01/25/2024 CBC WITH DIFFE RENTI AL/PL ATELE T monocytes(ab solute) 0.7 x10e3 /uL 0.1-0. 9 normal Not Available [facility] ([facility]) [address] [place], [address], 02/02/2024 19:51:40 01/25/20 24 01/25/2024 CBC WITH DIFFE RENTI AL/PL ATELE T eos (absolute) 0.3 x10e3 /uL 0.0-0. 4 normal Not Available [facility] ([facility]) [address] [facility], [place], [address], 02/02/2024 19:51:40 01/25/20 24 01/25/2024 CBC WITH DIFFE RENTI AL/PL ATELE T baso (absolute) 0.0 x10e3 /uL 0.0-0. 2 normal Not Available [facility] ([facility]) [address] [facility], [place], [address], 02/02/2024 19:51:40 01/25/20 24 01/25/2024 CBC WITH DIFFE RENTI AL/PL ATELE T immature granulocytes 0 % not estab. Not Available [facility] ([facility]) [address] [facility], [place], [address], 02/02/2024 19:51:40 01/25/20 24 01/25/2024 CBC WITH DIFFE RENTI AL/PL ATELE T immature grans (abs) 0.0 x10e3 /uL 0.0-0. 1 Not Available [facility] ([facility]) [address] [place], [address], 02/02/2024 19:51:40 01/25/20 24 01/25/2024 CBC WITH DIFFE RENTI AL/PL ATELE T NRBC CYLINDER INSPECTOR AND TESTER Not Available [facility] ([facility]) [address] [place], [address], 02/02/2024 19:51:40 01/25/20 24 01/25/2024 CBC WITH DIFFE RENTI AL/PL ATELE T hematology comments: CYLINDER INSPECTOR AND TESTER Not Available [facility] ([facility]) [address] [facility], [place], [address], 02/02/2024 19:51:40 01/25/2001/27/2024 A1C W/GLY COMAR K(R) REFLE X Hb [...] <7.0 (ADA) Not Available [facility] [address] [place] [address], [address], 02/02/2024 19:51:41 01/25/20 24 01/27/2024 A1C W/GLY COMAR K(R) REFLE X estimated average glucose 111 mg/dL Not Available [facility] [address] [place], [address], 02/02/2024 19:51:41 01/25/20 24 01/27/2024 A1C W/GLY [...] s. Not Available [facility] [address] [facility], [place], [address], 02/02/2024 19:51:41 01/25/20 24 01/26/2024 IVELISSE+R F QN IVELISSE direct NEGATI VE negati ve Not Available [facility] ([facility]) [address] [place], [address], 02/02/2024 19:51:41 01/25/20 24 01/26/2024 IVELISSE+R F QN rheumatoid factor (rf) 11.7 IU/mL <14.0 normal Not Available [facility] ([facility]) [address] [place], [address], 02/02/2024 19:51:41 01/25/20 24 02/02/2024 THYRO ID STIMU LATIN G HORMO NE TSH-icma 1.4 uu/mL Refer ence Range : Non-P regna nt Adult 0.450 -4.50 0 Pregn sotero First Trime ster 0.100 -4.00 0 Secon d Trime ster 0.200 -4.00 0 Third Trime ster 0.300 -4.50 0 Not Available [facility] [address] [facility], [place], [address], 02/02/2024 19:51:42 01/25/20 24 01/26/2024 SYPHI LIS RPR W/REF FANNY RPR NON REACTI VE non reacti ve Not Available [facility] ([facility]) [address] [facility], [place], [address], 02/02/2024 19:51:42 01/25/20 24 01/26/2024 SEDIM ENTAT ION RATE- WESTE RGREN sedimentatio n rate-westerg narendra 9 mm/HR 0-40 normal Not Available [facility] ([facility]) [address] [place], [address], 02/02/2024 19:51:43 01/25/20 24 01/26/2024 C-JAMES CTIVE PROTE IN, QUANT C-reactive protein, quant 5 mg/L 0-10 normal Not Available [facility] ([facility]) [address] [facility], [place], [address], 02/02/2024 19:51:43 02/14/19 25 02/16/2024 LYME DISEA [...] is recom lucina d. Not Available [facility] ([facility]) [address] [facility], [place], [address], 02/16/2024 13:16:30 01/25/20 24 audio gram No observ ation record ed. [email or web address] Not Available 14:35:22 02/09/20 24 02/08/2024 MRI, brain + brain stem, w/wo contr ast [facility] Access ion Number : [id number] 603 Patien t Name: Kanwal Espinosaa l Record Number : [id number] Date of : 1960 Date of Exam: 2023 Referr ing Physic alexia: [facility] [address] [place] [address] Exam: MR Brain (C-/C+ ) CPT 44172 Room Descri ption: [place] Siem Verio 3.0T HISTOR Y: Bilate ral sensor ineura l hearin g loss. TECHNI QUE: Multip lanar multis equenc e MRI of the brain (IAC) was obtain ed before and after the admini strati on of 16 cc of Dotare m. COMPAR MOIRA: No prior studie s are availa ble for compar moira at [facility] . FINDIN GS: On the high-r [...] cerebe llopon victoriano angle cister n or advisory intern al audito ry canal. No abnorm [...] ent acute sinusi tis in the approp riate clinic [facility]el[facility] Electr onical ly Signed By: Deshawn Greenfield MD [facility] ([facility]) [address], [place], [address], 02/15/2024 11:33:58 07/09/19 25 06/14/2024 audio gram No observ ation record ed. [email or web address] Not Available 2024 17:48:00 12/16/19 audio gram No observ ation record ed. BARCODE Not Available 2024 13:13:40 Result Notes None recorded. Problems Name Problem SNOMED Code Status Onset Date Resolution Date Notes Provider Name and Address Organization Details Recorded Time Sensorine ural hearing loss of bilateral ears 519277914 Active 2021 Sensorine ural hearing loss, bilateral ; Note: Date Diagnosed : 11/01/2021 9:20 AM (H90.3) Not Available [facility] 4 02:36:19 Mixed conductiv e and sensorine ural hearing loss, bilateral 622910425 Active 2023 SOLITARIO JOHNSON MD [address], [place], [address] , [place] - [facility] 4 13:40:48 Sensorine ural hearing loss of bilateral ears 217906938 Active 2024 ISHMAEL ZAMAN MD [address], [place], [address] , [place] [facility] 5 14:51:05 Mixed conductiv e and sensorine ural hearing loss, bilateral 012465165 Active 2024 TABBY BARAHONA, HÉCTOR [address], [place], [address] , [place] - [facility] 5 09:15:17 Bilateral tinnitus 44760761615 02 Active 2024 ISHMAEL ZAMAN MD [address] [facility] [address] [facility] [address], [place], [address] , [place] [facility] 5 10:04:11 Vertigo of central origin 73716425 Active 2024 ISHMAEL ZAMAN MD [address], [place], [address] , [place] [facility] 5 10:12:38 Migraine variants 685052113 Active 2024 ISHMAEL ZAMAN MD [address], [place], [address] , [place] [facility] 5 10:12:38 Refractor y migraine 999722326 Active 2024 ISHMAEL ZAMAN MD [address], [place], [address] , [place] [facility] 5 10:12:38 Migraine with aura 8857237 Active 2024 ISHMAEL ZAMAN MD [address] [facility],[place] [place] [address], [place], [address] , [place] [facility] 10:12:39 Problem Notes None recorded. Procedures Surgical History Date Name Laterality Status Provider Name and Address Organization Details Recorded Time 12/16/19 25 Air & Speech Audio with Tymps - 35221, 85561 & 42247 completed VERONICA KIM, AUD [address] [facility],[address], [address], [place] - [facility] 12/15/2024 09:35:23 06/15/19 25 Comp Audio with Tymps - 66355 & 80512 completed TABBY BARAHONA, AUD [address] [facility],[address], [address], [place] - [facility] 06/14/2024 09:15:02 02/14/19 25 Telehealth completed ISHMAEL ZAMAN MD [address] [facility],[address], [address], [place] [facility] 02/15/2024 11:33:49 01/25/20 24 Comp Audio with Tymps - 74201 & 29352 completed HARRY JOYNER, AUD [address] [place] [address],[address], [address], [place] [facility] 01/25/2024 12:00:11 section completed Ivelisse Rust [place] [facility] 06/14/2024 09:43:01 total replacement of hip completed Ivelisse Rust [place] - [facility] 06/14/2024 09:43:08 Imaging Results None recorded. Procedure [...] mL (0.083 %) solution for nebulizat ion INHALE 2.5MG 3ML) BY MOUTH EVERY 6 HOURS NEEDED FOR SHORTNES S OF BREATH OR WHEEZING active Not Available Not Available No t Available azithromy susan 250 mg tablet TAKE TWO TABLETS BY MOUTH 500MG) ON DAY 1, FOLLOWED BY 1 TABLET 250MG) ONCE DAILY ON DAYS 2 THROUGH 5 12/15 completed Not Available Not Available Not Available prednison e 20 mg tablet TAKE 1 TABLET BY MOUTH DAILY. 06/14 completed Not Available Not Available Not Available meclizine 25 mg tablet TAKE ONE TABLET BY MOUTH THREE TIMES A DAY NEEDED FOR DIZZINES S active Not Available Not Available No t Available estradiol 0.01% (0.1 mg/gram) vaginal cream USE 02/12 APPLICAT ORFUL VAGINALL Y EVERY 7 DAYS 01/24 completed Not Available Not Available Not Available albuterol sulfate HFA 90 mcg/actua tion aerosol inhaler INHALE 2 PUFFS INHALED 4 TIMES A DAY NEEDED FOR SHORTNES S OF BREATH OR WHEEZING . active Not Available Not Available No t Available norethind nelson (contrace ptive) 0.35 mg tablet 01/24 completed Medicati on ID: [id number] B rand Name: norethin drone (contrac eptive) Send Method: E-Prescr ibed Sub s Allowed: subs OK Medic ationGen ericName : norethin drone (contrac eptive) Not Available Not Available Not Available Vitals Date Recorded Body height Provider Name an d Address Organization Details Last Updated DateTime 02/15/2024 160.02 cm ISHMAEL ZAMAN MD [address] [place] [address], [address] 02/15/2024 11:32:21 Date Recorded Body height Body mass index (BMI) Body weight Provider Name and Address Organization Details Last Updated DateTime 12/15/2024 160.02 cm 31 kg/m2 85133.66 g Ivelisse Rust [facility] 12/15/2024 09:06:35 Social History None recorded. Functional Status None recorded. Mental Status None recorded. Family History Nothing Reported. Medical History No medical history recorded. Gynecological HistoryNo gynecological history recorded. Obstetrics History GPAL:G 0 P 0 0 0 0 Past Encounters Encounter ID Performer Location Encounter Start Date Encounter Closed Date Diagnosis/Indication Diagnosis SNOMED-CT Code Diagnosis ICD10 Code Diagnosis IMO Codes Diagnosis Note [id number] SOLITARIO JOHNSON MD [facility] [address] [facility] [place] [address] 11/02/2023 13:02:04 11/02/2023 13:55:29 Mixed conductive and sensorineural hearing loss, bilateral 365550542 H90.6 [id number] ISHMAEL ZAMAN MD [facility] [address] [facility] [place] [address] 01/25/2024 11:07:08 01/25/2024 12:32:28 Sensorineural hearing loss of bilateral ears 393480828 H90.3 Audiometri c testing was repeated today [...] to bring to her audiologis t at [facility] audiology to ensure that her hearing [...] . Family his tory of hearing loss 925113228 Z82.2 [id number] HÉCTOR SCOTT [facility] [address] [facility] [place] [address] 01/25/2024 11:59:19 01/26/2024 07:44:56 Mixed conductive and sensorineural hearing loss, bilateral 547116117 H90.6 Right Ear:Modera tely-sever e through 1K Hz rising to a mild SNHL through 3K Hz sloping to a moderate HF HL with excellent speech discrimina tion.Type C tympanogra m.Left Ear:Severe rising to moderate MHL with excellent speech discrimina tion.Type C tympanogra m. Sensorineu ral hearing loss of bilateral ears 198404304 H90.3 [id number] ISHMAEL ZAMAN MD [facility] [address] [address] 02/15/2024 11:32:04 02/15/2024 11:49:32 Sensorineural hearing loss of bilateral ears 267434604 H90.3 Family his tory of hearing loss 669999973 Z82.2 [id number] ISHMAEL ZAMAN MD [facility] [address] [address] 06/14/2024 08:53:05 06/14/2024 10:22:07 Sensorineural hearing loss of bilateral ears 230137746 H90.3 Family his tory of hearing loss 252956259 Z82.2 741356 Bilateral tinnitus 07885 41440 102 H93.13 [id number] HÉCTOR TRISTAN [facility] [address] [address] 06/14/2024 09:14:50 06/17/2024 01:53:26 Mixed conductive and sensorineural hearing loss, bilateral 035209569 H90.6 [id number] Audiologic al evaluation results: Right ear: Moderately -severe flat mixed hearing loss with poor word recognitio n. Left ear: Moderate ring to mild sloping to severe mixed hearing loss with excellent word recognitio n. Tympanomet ry: Right Ear:Type A Left Ear:Type A [id number] ISHMAEL ZAMAN MD [facility] [address] [address] 12/15/2024 08:57:39 12/15/2024 10:47:17 Sensorineural hearing loss of bilateral ears 882138776 H90.3 Family his tory of hearing loss 878834780 Z82.2 [id number] Bilateral tinnitus 90453 23970 102 H93.13 262646 Migraine variants 748286 005 G43.809 The patient's history, physical exam and audiometri c findings are consistent with vestibular migraine (migraine associated dizziness) . Today we discussed the pathophysi ology of migraine and migraine associated phenomena such as dizziness and visual aura. We discussed the possibilit y that this could be contributi ng to her fluctuatin g and progressiv e hearing loss as well. We discussed that she does NOT have BPPV and therefore would not benefit from vestibular rehabilita tion. We discussed how the patient's balance disturbanc e symptoms are likely mediated by a central processing abnormalit y rather than an isolated inner ear abnormalit y. I gave the patient a significan t amount of literature to review at home regarding how there are many environmen deanne and dietary triggers that can lead to not only migraine headaches but balance disturbanc e symptoms as well. We spent a lot of time discussing the importance of following a migraine diet. We have offered the patient a copy of the Heal Your Headache book to read at home, which gives a step-by-st ep discussion on what causes migraine and how to make the necessary lifestyle and dietary changes to significan tly reduce or eliminate migraine symptoms.I have also recommende d the use of dietary supplement s magnesium, vitamin B2 and feverfew which have been shown to help control migrainous phenomena. We discussed dosage and schedule for these supplement s. We discussed alternativ e of using Migranol, which contains a combinatio n of magnesium, vitamin B2, and feverfew. I like to see the patient back in another 3 months for audiometri c testing to see if these efforts have made of significan t impact on her overall hearing. We could discuss pharmacolo gic interventi on at that time if necessary. Vertigo of central origin 23556450 H81.4 [id number] HÉCTOR DANIELS [facility] [address] [address] 12/15/2024 08:57:08 12/15/2024 10:27:12 Sensorineural hearing loss of bilateral ears 213903257 H90.3 Audiologic al evaluation results: Right ear:Modera tely-sever e flat sensorineu ral hearing loss with poor word recognitio n.Left ear:Mild sloping to severe sensorineu ral hearing loss with excellent word recognitio n. Tympanomet ry:Right Ear:Type ALeft Ear:Type A Health Concerns Section Related Observation LastModified by Organization Detai ls LastModified Time None Recorded Concern Status LastModified by Organization Details LastModified Time None Recorded Advance Directives Directive None Recorded Payers Insurance Date Sequence Insurance Name Policy Number Policy Gutierrez Covered Member ID Gutierrez Member ID Guarantor Name 12/20/2024 1 [place] [employer] Kanwal Jimenez [id number] Kanwal Jimenez 12/20/2024 2 [place] [id number] Kanwal Jimenez [id number] Kanwal Jimenez Notes Date Note Type Note Provider Name and Address Organization Details Recorded Time 02/15/2024 text/html Patient with bilateral, apparently progressive [...] ZAMAN MD [address] [facility],[address], [address], [facility] 02/15/2024 11:42:20 06/14/2024 text/html 64-year-old female with apparently progressive sensorineural hearing loss. MRI and laboratory testing negative. Patient does have a very strong family history of early onset and progressive sensorineural hearing loss in 6 or 7 of her first and second-degree relatives. Using binaural amplification managed through [facility] audiology. She comes 4-month follow-up audiogram to assess for progression. ISHMAEL ZAMAN MD [address] [facility],[address] [address], [place], [address], [facility] 06/14/2024 10:08:56 12/15/2024 text/html 64-year-old female with apparently progressive sensorineural hearing loss. MRI and laboratory testing negative. Patient does have a very strong family history of early onset and progressive sensorineural hearing loss in 6 or 7 of her first and second-degree relatives. Using binaural amplification managed through [facility] audiology. She comes 6-month follow-up audiogram to assess for progression. Patient has been noticing more distortion and static sensation to the hearing in the right ear recently. She is doing pretty well with the hearing aid in the left ear.Patient has been noticing recent onset episodes of vertigo. Symtoms will be triggered by rapid or complex head and body movements. She will have a lightheadedness sensation followed by sensation of true spinning vertigo, nausea and vomiting. This will last anywhere from 15 minutes to several hours. She has medication that she will take that will allow her to sleep and when she wakes up the symptoms are gone. There is always a headache associated with this. Patient reports that at this point she only really gets headaches when she is having a dizzy spell, but she does recall that throughout most of her life when she had her menstrual period, she would always have a migraine headache associated with that. ISHMAEL ZAMAN MD [address] [place] [address], [place], [address], [facility] - [facility] 12/15/2024 10:23:33 OBGyn Episode No OBEpisode recorded.
--- OUTSIDE RECORDS SUMMARY | 2025-01-27 08:03 | XMS_ITS | Continuity of Care Document ---
Author Organization [place] - [facility], [facility] Address [address] [place] [address] Care Team Providers Care Portable Router Operator Name Role Phone REMI SEGAL Primary Care Provider Assessment No assessment recorded. Plan of Treatment Reminders Order Date Submit Date Provider Last Modified By Organization Details Last Modified Time Details Appointments Establish ed 10 2025 09:00A M ISHMAEL ZAMAN MD Not available Not available Not available Lab None recorded. Referral None recorded. Procedures None recorded. Surgeries None recorded. Imaging None recorded. Medication Orders None recorded. Patient TargetsNo targets recorded. Patient InstructionsNo instructions recorded. Reason for Referral None Reported. Results Created Date Observation Date Name Description Value Unit Range Abnormal Flag Note LastModifiedBy Organization Detail LastModifiedTime 12/16/19 25 audio gram No observ ation record ed. BARCODE Not Available 2024 13:13:40 Result Notes None recorded. Problems Name Problem SNOMED Code Status Onset Date Resolution Date Notes Provider Name and Address Organization Details Recorded Time Sensorine ural hearing loss of bilateral ears 426318688 Active 2021 Sensorine ural hearing loss, bilateral ; Note: Date Diagnosed : 11/01/2021 9:20 AM (H90.3) Not Available [employer] 02:36:19 Mixed conductiv e and sensorine ural hearing loss, bilateral 812593812 Active 2023 SOLITARIO JOHNSON MD [address] [place] [address], [facility] [place], [address] , [place] - [facility] 4 13:40:48 Sensorine ural hearing loss of bilateral ears 218375971 Active 2024 ISHMAEL ZAMAN MD [address] [facility],[place] [address], [place], [place], [address] , [facility] - [facility] [place] 5 14:51:05 Mixed conductiv e and sensorine ural hearing loss, bilateral 945849593 Active 2024 TABBY BARAHONA, AUD [address] [facility],[place] [address], [place], [address] , [place] [facility] [place] 5 09:15:17 Bilateral tinnitus 06813406583 02 Active 2024 ISHMAEL ZAMAN MD [address] [facility],[place] [address], [place], [address] , [place] [facility] [place] 5 10:04:11 Vertigo of central origin 50202236 Active 2024 ISHMAEL ZAMAN MD [address] [facility],[place] [address], [place], [address] , [facility] - [facility] 5 10:12:38 Migraine variants 467986964 Active 2024 ISHMAEL ZAMAN MD [address] [facility],[place] [address], [place], [address] , [facility] - [facility] 5 10:12:38 Refractor y migraine 754572056 Active 2024 ISHMAEL ZAMAN MD [address] [facility],[place] [address], [place], [address] , [facility] - [facility] 5 10:12:38 Migraine with aura 7275053 Active 2024 ISHMAEL ZAMAN MD [address] [facility],[place] [address], [place], [address] , [facility] - [facility] 5 10:12:39 Problem Notes None recorded. Procedures Surgical History Date Name Laterality Status Provider Name and Address Organization Details Recorded Time 12/16/19 25 Air & Speech Audio with Tymps - 66824, 42722 & 22249 completed HÉCTOR DANIELS [facility] [place], [address], [place] - [facility] [place] 12/15/2024 09:35:23 06/15/19 25 Comp Audio with Tymps - 68100 & 27025 completed TABBY BARAHONA, AUD [address] [facility],[address], [address], [place] [facility] [place] 06/14/2024 09:15:02 02/14/19 25 Telehealth completed ISHMAEL ZAMAN MD [address] [facility],[address], [address], [place] [facility] 02/15/2024 11:33:49 01/25/20 24 Comp Audio with Tymps - 32890 & 70622 completed HARRY JOYNER, AUD [address] [place] [address],[address], [address], [place] - [facility] [place] 01/25/2024 12:00:11 section completed Maria Eugenia Rust [place] - [facility] 06/14/2024 09:43:01 total replacement of hip completed Maria Eugenia Rust [place] - [facility] 06/14/2024 09:43:08 Imaging Results None recorded. Procedure [...] estradiol 0.01% (0.1 mg/gram) vaginal cream USE / APPLICAT ORFUL VAGINALL Y EVERY 7 DAYS 01/24 completed Not Available Not Available Not Available albuterol sulfate HFA 90 mcg/actua tion aerosol inhaler INHALE 2 PUFFS INHALED 4 TIMES A DAY NEEDED FOR SHORTNES S OF BREATH OR WHEEZING . active Not Available Not Available No t Available norethind nelson (contrace ptive) 0.35 mg tablet 01/24 completed Medicati on ID: [id number] B rand Name: norethin drone (contrac eptive) Send Method: E-Prescr ibed Sub s Allowed: subs OK Medic ationGen ericName : norethin drone (contrac eptive) Not Available Not Available Not Available Vitals Date Recorded Body height Body mass index (BMI) Body weight Provider Name and Address Organization Details Last Updated DateTime 12/15/2024 160.02 cm 31 kg/m2 96863.66 g Maria Eugenia Rust [place] - [facility] 12/15/2024 09:06:35 Social History None recorded. Functional Status None recorded. Mental Status None recorded. Family History Nothing Reported. Medical History No medical history recorded. Gynecological HistoryNo gynecological history recorded. Obstetrics History GPAL:G 0 P 0 0 0 0 Past Encounters Encounter ID Performer Location Encounter Start Date Encounter Closed Date Diagnosis/Indication Diagnosis SNOMED-CT Code Diagnosis ICD10 Code Diagnosis IMO Codes Diagnosis Note [id number] ISHMAEL ZAMAN MD [facility] of [address] [address] 12/15/2024 08:57:39 12/15/2024 10:47:17 Sensorineural hearing loss of bilateral ears 348802986 H90.3 Family his tory of hearing loss 154043550 Z82.2 868761 Bilateral tinnitus 49706 22524 102 H93.13 764907 Migraine variants 663825 005 G43.809 The patient's history, physical exam [...] time if necessary. Vertigo of central origin 46930076 H81.4 [id number] HÉCTOR DANIELS [facility] of [address] [address] 12/15/2024 08:57:08 12/15/2024 10:27:12 Sensorineural hearing loss of bilateral ears 313529886 H90.3 Audiologic al evaluation results: Right ear:Modera [...] Member ID Gutierrez Member ID Guarantor Name 12/15/2024 1 [place] [employer] Kanwal Jimenez [id number] Kanwal Jimenez 12/15/2024 2 [place] [id number] Kanwal Jimenez [id number] Kanwal Jimenez Notes Date Note Type Note Provider Name and Address Organization Details Recorded Time 12/15/2024 text/html 64-year-old female with apparently progressive sensorineural hearing loss. MRI and laboratory testing negative. Patient does have a very strong family history of early onset and progressive sensorineural hearing loss in 6 or 7 of her first and second-degree relatives. Using binaural amplification managed through [facility] audiology. She comes 6-month follow-up audiogram [...] headache associated with that. ISHMAEL ZAMAN MD [address] [place] [address], [address], [facility] - [facility] 12/15/2024 10:23:33 OBGyn Episode No OBEpisode recorded.
--- OUTSIDE RECORDS SUMMARY | 2025-01-27 08:03 | XMS_ITS | Continuity of Care Document ---
Author Organization [place] - [facility], [facility] Address [address] [place] [address] Care Team Providers Care Hadoop Engineer Name Role Phone REMI SEGAL Primary Care Provider Assessment Encounter Date Assessment Date Assessment LastModified by Organization Details LastModified Time 12/15/2024 12/15/2024 Patient with bilateral, progressive sensorineural [...] She should continue to work with her director of athletics at [facility] audiology to ensure that her hearing aids are adjusted to match her current level of hearing loss. She has been given a copy of the audiogram. [email or web address] Not available 12/15/2024 10:20:33 Plan of Treatment [...] Sensorine ural hearing loss of bilateral ears 194220109 Active 2021 Sensorine ural hearing loss, bilateral ; Note: Date Diagnosed : 11/01/2021 9:20 AM (H90.3) Not Available [facility] 4 02:36:19 Mixed conductiv e and sensorine ural hearing loss, bilateral 846192616 Active 2023 SOLITARIO JOHNSON MD [address], [place], [place], [address] , [place] - [facility] [place] 4 13:40:48 Sensorine ural hearing loss of bilateral ears 633033933 Active 2024 ISHMAEL ZAMAN MD [address], [place], [place], [address] , [place] [facility] 5 14:51:05 Mixed conductiv e and sensorine ural hearing loss, bilateral 656785421 Active 2024 TABBY BARAHONA, AUD [address], [place], [place], [address] , [place] [facility] 5 09:15:17 Bilateral tinnitus 00459971666 02 Active 2024 ISHMAEL ZAMAN MD [address], [place], [place], [address] , [place] [facility] 5 10:04:11 Vertigo of central origin 17630325 Active 2024 ISHMAEL ZAMAN MD [address], [place], [place], [address] , [place] [facility] 5 10:12:38 Migraine variants 058829379 Active 2024 ISHMAEL ZAMAN MD [address], [place], [place], [address] , [place] [facility] 5 10:12:38 Refractor y migraine 783062496 Active 2024 ISHMAEL ZAMAN MD [address] [facility],[place] [address], [place], [address] , [place] [facility] [place] 10:12:38 Migraine with aura 2795495 Active 2024 ISHMAEL ZAMAN MD [address] [facility],[place] [address], [place], [address] , [place] [facility] [place] 10:12:39 Problem Notes None recorded. Procedures Surgical History Date Name Laterality Status Provider Name and Address Organization Details Recorded Time 12/16/19 25 Air & Speech Audio with Tymps - 03700, 34253 & 25805 completed VERONICA KIM, [address], [address], [place] - [facility] 12/15/2024 09:35:23 06/15/19 25 Comp Audio with Tymps - 44347 & 21497 completed TABBY BARAHONA, AUD [address] [place] [address],[address], [address], [place] [facility] 06/14/2024 09:15:02 02/14/19 25 Telehealth completed ISHMAEL ZAMAN MD [address] [facility],[address], [address], [place] [facility] 02/15/2024 11:33:49 01/25/20 24 Comp Audio with Tymps - 59637 & 97841 completed HARRY JOYNER AUD [address] [place] [address],[address], [address], [place] [facility] 01/25/2024 12:00:11 section completed Maria Eugenia Rust [place] - [facility] 06/14/2024 09:43:01 total replacement of hip completed Maria Eugenia Rust [place] - [facility] 06/14/2024 09:43:08 Imaging Results None recorded. Procedure [...] mg tablet 01/24 completed Medicati on ID: [id number] B rand Name: norethin drone (contrac eptive) Send Method: E-Prescr ibed Sub s Allowed: subs OK Medic ationGen ericName : norethin drone (contrac eptive) Not Available Not Available Not Available Vitals Date Recorded Body height Body mass index (BMI) Body weight Provider Name and Address Organization Details Last Updated DateTime 12/15/2024 160.02 cm 31 kg/m2 40820.66 g Maria Eugenia Rust [place] - [facility] 12/15/2024 09:06:35 Social History None recorded. Functional Status None recorded. Mental Status None recorded. Family History Nothing Reported. Medical History No medical history recorded. Gynecological HistoryNo gynecological history recorded. Obstetrics History GPAL:G 0 P 0 0 0 0 Past Encounters Encounter ID Performer Location Encounter Start Date Encounter Closed Date Diagnosis/Indication Diagnosis SNOMED-CT Code Diagnosis ICD10 Code Diagnosis IMO Codes Diagnosis Note [id number] ISHMAEL ZAMAN MD [facility] [address] [place] [address] 12/15/2024 08:57:39 12/15/2024 10:47:17 Sensorineural hearing loss of bilateral ears 300098375 H90.3 Family his tory of hearing loss 518252404 Z82.2 007154 Bilateral tinnitus 72068 40857 102 H93.13 999660 Migraine variants 115380 005 G43.809 The patient's history, physical exam [...] time if necessary. Vertigo of central origin 94462344 H81.4 [id number] HÉCTOR DANIELS [facility] [address] [place] [address] 12/15/2024 08:57:08 12/15/2024 10:27:12 Sensorineural hearing loss of bilateral ears 318895393 H90.3 Audiologic al evaluation results: Right ear:Modera [...] ID Guarantor Name 12/15/2024 1 [place]: [employer] Kanwal Jimenez [id number] Kanwal Jimenez 12/15/2024 2 [place] [id number] Kanwal Jimenez [id number] Kanwal Jimenez Notes Date Note Type Note Provider Name and Address Organization Details Recorded Time 12/15/2024 text/html 64-year-old female with apparently progressive sensorineural hearing loss. MRI and laboratory testing negative. Patient does have a very strong family history of early onset and progressive sensorineural hearing loss in 6 or 7 of her first and second-degree relatives. Using binaural amplification managed through [facility] audiology. She comes 6-month follow-up audiogram [...] headache associated with that. ISHMAEL ZAMAN MD [address] [place] [address], [address], [facility] - [facility] 12/15/2024 10:23:33 OBGyn Episode No OBEpisode recorded.
--- OUTSIDE RECORDS SUMMARY | 2025-01-27 08:03 | XMS_ITS | Patient Health Record ---
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 amount of alcohol She does not smoke nor use a ny sig. amount of alcohol Problems Problem Type SNOMED Code ICD Code Onset Dates Problem Status W/U Status Risk Notes Problem Esophageal reflux (911202407) Esophageal reflux (530.81) Active confirmed Plan Of Treatment Pending Test Test Name Order Date XR BARIUM SWALLOW-ESOPHAGUS 02/12/2011 XR GI SERIES 02/12/2011 Insurance Providers Payer Name Payer Address Payer Phone Subscriber Number Group Number Insured Name Patient Relationship to Insured Coverage Start Date Coverage End Date [facility] e Health Access PROFESSIONAL CLAIMS [address] [place] [address] [id number] IGOR TYLER Self - patient is the insured Medical (General) History Medical History History ICD Code Asthma GERD Denies [place],DM,CVA,Lung disease,renal dise ase Surgical History Surgery Date(Month/Year)
--- NOTE | 2025-01-27 08:33 | MHC.AU.HA3 ---
Hearing Instrument Follow-Up- Binaural Date of Visit: 01/27/25 Right Ear: Gilbert, Model, Color, Serial Number: Monserrat Soria I 70 R, bayron boyle S#[id number] Professor Of Geology Repair Warranty: 01/01/2027 Professor Of Geology Loss and Damage Warranty: 01/01/2027 [facility] Service Plan: n/a Battery Size: Rechargeable Rn Lpn Cna/Slim Tube: 1M Earmold/Dome/CShell/SlimTip:silicone skeleton S#[id number] Warranty 05/04/2024 Type of Wax Guard: Cerustop Dispensed By: [facility] Date of Fittin12/09/2023 Left Ear: Gilbert, , Color, Serial Number: Monserrat Soria I 70 Rjimi S#[id number] Professor Of Geology Repair Warranty: 01/01/2027 Professor Of Geology Loss and Damage Warranty: 01/01/2027 [facility] Service Plan: n/a Battery Size: Rechargeable Rn Lpn Cna/Slim Tube: 2 M Earmold/Dome/CShell/SlimTip: silicone skeleton S#[id number] Warranty 05/04/2024 Type of Wax Guard: Cerustop Dispensed By: [facility] Date of Fittin12/09/2023 Follow-Up Summary: Kanwal is seen for hearing aid problem. Reports right aid not working at all. Cleaned both aids and earmolds, brushed debris from microphones, replaced wax guards. Listening check good left, right still not working. Replaced chief deputy clerk/bailiff right, listening check good. Kanwal notes improvement. Ordering replacement chief deputy clerk/bailiff for stock, in warranty. Kanwal notes she has had recent ENT evaluation, did not bring copy with her. Reports not feeling that hearing aid adjustment is needed at this time. Reports recent dx: vestibular migraine. Recommendations: Recommendations: Hearing instrument maintenance in 6 months, or sooner if needed. Diagnosis Code(s): Primary Diagnosis: H90.3 Bilateral Sensorineural Hearing Loss Signature: Provider: Lion Aguilar, [facility]
== END 2025-01-27 08:00 | disposition home or self-care (01) ==
LOC: HO.HAP 07:59
PROVIDERS: Visit Provider Physician Assistant
DX: Z46.1 Encounter for fitting and adjustment of hearing aid (principal); H90.3 Sensorineural hearing loss, bilateral
CPT/HCPCS: 92593